=== PATIENT | female | born 1950 | race Caucasian/White ===

== ENCOUNTER → 2018-04-10 15:35 | Outpatient (CLI) | payer MEDICARE, OTHER, SELFPAY ==
--- NOTE | 2018-04-10 | DI.RAD.S_ITS ---
PROCEDURE: XR CHEST 2V INDICATIONS: 67 year-old female with cough. TECHNIQUE: 2 views of the chest were acquired. COMPARISON: [facility], , CHEST 1 VIEW, 09/22/2015, 8:42. [facility], CR, CHEST 2 VIEW, 02/20/2008, 8:08. [facility], RG, XR CXR 2V, 01/18/2006, 10:11. FINDINGS: Surgical changes and devices: None. Lungs and pleura: No pleural effusions or pneumothorax. Lungs are clear. Lung volumes are prominent. Mediastinum: Mediastinal contours are normal. Heart size is normal. There is aortic atherosclerosis. Bones and chest wall: No suspicious bony abnormalities. Soft tissues appear unremarkable. IMPRESSION: No acute cardiopulmonary disease. Prominent lung volumes raise the question of chronic obstructive pulmonary disease. Dictated by: Myron Lai M.D. on 04/10/2018 at 16:00 Approved by: Myron Lai M.D. on 04/10/2018 at 16:00
== END ==
PROVIDERS: PCP Family Medicine; Visit Provider Internal Medicine Cardiovascular Disease
DX: R05 Cough (principal)
CPT/HCPCS: 71046

== ENCOUNTER → 2018-04-24 15:55 | Outpatient (CLI) | payer MEDICARE, OTHER, SELFPAY ==
[2018-04-24 16:43] LABS: Hematocrit 42.1 % (36-46); Hemoglobin 14.2 g/dL (12.0-16.0)
== END ==
PROVIDERS: Family Provider Family Medicine; PCP Family Medicine; Visit Provider Family Medicine
DX: Z01.812 Encounter for preprocedural laboratory examination (principal)
CPT/HCPCS: 36415; 85014; 85018

== ENCOUNTER → 2018-04-30 15:55 | Outpatient (CLI) | payer MEDICARE, OTHER, SELFPAY ==
--- NOTE | 2018-05-02 16:24 | PM.PFT.1 ---
Pulmonary Function Test Referral & Results Date Patient Seen: 04/30/18 Requesting provider: Zoraida Holt Results: The spirometry demonstrates an FVC of 3.26 L which is 85% of predicted. The FEV1 was measured at 2.42 L which is 83% of predicted. The FEV1/FVC ratio was 70 for which is 96% of predicted. Following the administration of bronchodilator there was no appreciable change. Lung volumes show an SVC of 3.18 L which is 91% of predicted. The diffusing capacity was measured at 23.97 which is 75% of predicted. No hemoglobin value was provided, so no correction for potential anemia could be made, if appropriate. The maximum voluntary ventilation was reduced. Interpretation: This study demonstrates mild obstructive lung disease without evidence of benefit following the administration of bronchodilator. There is also a slight reduction in diffusing capacity suggesting some element of disease at the capillary alveolar level. Clinical correlation suggested
== END ==
PROVIDERS: Family Provider Family Medicine; PCP Family Medicine; Visit Provider Family Medicine
DX: J44.9 Chronic obstructive pulmonary disease, unspecified (principal)
CPT/HCPCS: 94010; 94060; 94726; 94729

== ENCOUNTER → 2018-07-15 14:29 | Outpatient (CLI) | payer MEDICARE, OTHER, SELFPAY ==
--- NOTE | 2018-07-15 | DI.MG.S_ITS ---
BILATERAL DIGITAL SCREENING MAMMOGRAM 3D/2D WITH CAD: 07/15/2018 CLINICAL: Routine screening. Comparison is made to exams dated: 12/04/2016 mammogram, 07/21/2015 mammogram, and 03/07/2013 mammogram - [facility]. The tissue of both breasts is heterogeneously dense. This may lower the sensitivity of mammography. Current study was also evaluated with a Computer Aided Detection (CAD) system. There are mole markers on both breasts. No significant masses, calcifications, or other findings are seen in either breast. There has been no significant interval change. IMPRESSION: NEGATIVE There is no mammographic evidence of malignancy. A 1 year screening mammogram is recommended. This exam was interpreted at Station ID: [id number]. NOTE: For mammograms, a report in lay terms will be sent to the patient. Approximately 15% of breast malignancies will not be visualized mammographically. In the management of a palpable breast mass, a negative mammogram must not discourage biopsy of a clinically suspicious lesion. Electronically Signed By: Kalen yang/lester:07/17/2018 02:45:49 letter sent: Normal Exam ACR BI-RADS Category 1: Negative 3341F
== END ==
PROVIDERS: Family Provider Family Medicine; PCP Family Medicine; Visit Provider Family Medicine
DX: Z12.31 Encounter for screening mammogram for malignant neoplasm of breast (principal)
CPT/HCPCS: 77063; 77067

== ENCOUNTER → 2018-08-15 08:32 | Outpatient (CLI) | payer MEDICARE, OTHER, SELFPAY ==
[2018-08-15 09:07] LABS: Add Manual Diff / Slide Review NO; Basophils Percent Auto 1.2 % (0-2); Eosinophils Percent Auto 8.7 % (2-4); Hematocrit 41.4 % (36-46); Hemoglobin 13.9 g/dL (12.0-16.0); Lymphocytes Percent Auto 32.1 % (25-40); Mean Corpuscular HGB Conc 33.7 % (30-36); Mean Corpuscular Hemoglobin 30.4 PG (26-34); Mean Corpuscular Volume 90.4 fL (80-100); Monocytes Percent Auto 9.9 % (3-14); Neutrophils Absolute Auto 2600 /uL (3000-5900); Neutrophils Percent Auto 48.1 % (50-75); Platelet Count 204 X10^3/uL (150-400); Red Blood Cell Count 4.58 X10^6/uL (4.0-5.2); Red Cell Distribution Width 13.1 % (11.6-14.8); White Blood Cell Count 5.5 X10^3/uL (4.5-11.0)
[2018-08-15 09:23] LABS: Alanine Aminotransferase 40 IU/L (9-52); Albumin 4.2 g/dL (3.5-5.0); Albumin Globulin Ratio 1.3 (1.0-2.8); Alkaline Phosphatase 50 U/L (38-126); Aspartate Aminotransferase 29 IU/L (14-36); BUN Creatinine Ratio 21.4 (6-22); Bilirubin Total 0.6 mg/dL (0.2-1.3); Blood Urea Nitrogen 15 mg/dL (7-17); Calcium 9.2 mg/dL (8.4-10.2); Carbon Dioxide 32 mmol/L (22-32); Chloride 104 mmol/L (98-107); Cholesterol 208 mg/dL (140-199); Estimated Glomerular Filt Rate > 60.0 mL/min (>60); Globulin 3.2 g/dL (1.7-4.1); Glucose 91 mg/dL (80-110); HDL Cholesterol 60 mg/dL (40-60); HEMOLYSIS < 15 (0-50); LDL Cholesterol Calculated 136 mg/dL (<100); Potassium 3.9 mmol/L (3.4-5.1); Sodium 144 mmol/L (137-145); Total Protein 7.4 g/dL (6.3-8.2); Triglycerides 59 mg/dL (35-150)
[2018-08-15 10:40] LABS: TSH w/ Reflex to FT4 2.16 uIU/mL (0.47-4.68)
== END ==
PROVIDERS: PCP Family Medicine; Visit Provider Family Medicine
DX: E78.5 Hyperlipidemia, unspecified (principal); I49.9 Cardiac arrhythmia, unspecified
CPT/HCPCS: 36415; 80053; 80061; 84443; 85025

== ENCOUNTER → 2018-09-20 08:59 | Outpatient (CLI) | payer MEDICARE, OTHER, SELFPAY | PROVIDERS: PCP Family Medicine; Visit Provider Family Medicine | DX: K21.9 Gastro-esophageal reflux disease without esophagitis (principal); R05 Cough | CPT/HCPCS: 83013 ==

== ENCOUNTER → 2019-06-09 09:11 | Outpatient (CLI) | payer MEDICARE, OTHER, SELFPAY ==
[2019-06-09 10:36] LABS: Alanine Aminotransferase 30 IU/L (9-52); Albumin 3.9 g/dL (3.5-5.0); Albumin Globulin Ratio 1.3 (1.0-2.8); Alkaline Phosphatase 48 U/L (38-126); Aspartate Aminotransferase 27 IU/L (14-36); BUN Creatinine Ratio 26.7 (6-22); Bilirubin Total 0.7 mg/dL (0.2-1.3); Blood Urea Nitrogen 16 mg/dL (7-17); Calcium 9.3 mg/dL (8.4-10.2); Carbon Dioxide 28 mmol/L (22-32); Chloride 105 mmol/L (98-107); Cholesterol 188 mg/dL (140-199); Estimated Glomerular Filt Rate > 60.0 mL/min (>60); Glucose 89 mg/dL (80-110); HDL Cholesterol 74 mg/dL (40-60); HEMOLYSIS < 15 (0-50); LDL Cholesterol Calculated 104 mg/dL (<100); Potassium 4.2 mmol/L (3.4-5.1); Sodium 141 mmol/L (137-145); Total Protein 6.9 g/dL (6.3-8.2); Triglycerides 48 mg/dL (35-150)
== END ==
PROVIDERS: PCP Family Medicine; Visit Provider Family Medicine
DX: E78.5 Hyperlipidemia, unspecified (principal)
CPT/HCPCS: 36415; 80053; 80061

== ENCOUNTER → 2019-06-18 15:07 | Outpatient (CLI) | payer MEDICARE, OTHER, SELFPAY ==
[2019-06-18 15:28] LABS: Add Manual Diff / Slide Review NO; Basophils Absolute Auto 100 /uL (0-100); Basophils Percent Auto 1.1 % (0-2); Eosinophils Absolute Auto 400 /uL (0-450); Eosinophils Percent Auto 6.2 % (2-4); Hematocrit 40.5 % (36-46); Hemoglobin 13.9 g/dL (12.0-16.0); Lymphocytes Absolute Auto 2300 /uL (1100-4500); Lymphocytes Percent Auto 37.9 % (25-40); Mean Corpuscular HGB Conc 34.3 % (30-36); Mean Corpuscular Hemoglobin 31.1 PG (26-34); Mean Corpuscular Volume 90.7 fL (80-100); Monocytes Absolute Auto 600 /uL (0-900); Monocytes Percent Auto 9.6 % (3-14); Neutrophils Absolute Auto 2700 /uL (1500-7000); Neutrophils Percent Auto 45.2 % (50-75); Platelet Count 198 X10^3/uL (150-400); Red Blood Cell Count 4.46 X10^6/uL (4.0-5.2); Red Cell Distribution Width 13.4 % (11.6-14.8)
[2019-06-18 15:51] LABS: Erythrocyte Sedimentation Rate 6 MM/HR (0-20)
[2019-06-18 16:48] LABS: C-Reactive Protein Quant < 0.5 mg/dL (<1.0)
[2019-06-18 16:52] LABS: TSH w/ Reflex to FT4 1.33 uIU/mL (0.47-4.68)
[2019-06-18 17:11] LABS: Vitamin B12 333 pg/mL (239-931)
== END ==
PROVIDERS: PCP Family Medicine; Visit Provider Family Medicine
DX: G62.9 Polyneuropathy, unspecified (principal); R53.83 Other fatigue
CPT/HCPCS: 36415; 82607; 84443; 85025; 85651; 86140

== ENCOUNTER → 2019-07-24 12:40 | Outpatient (CLI) | payer MEDICARE, OTHER, SELFPAY | PROVIDERS: PCP Family Medicine; Visit Provider Family Medicine | DX: R20.2 Paresthesia of skin (principal); M85.851 Other specified disorders of bone density and structure, right thigh; Z78.0 Asymptomatic menopausal state; Z90.722 Acquired absence of ovaries, bilateral; Z82.62 Family history of osteoporosis | CPT/HCPCS: 77080; 95885; 95886; 95910 ==

== ENCOUNTER → 2019-07-24 13:47 | Outpatient (CLI) | payer MEDICARE, OTHER, SELFPAY | PROVIDERS: PCP Family Medicine; Visit Provider Family Medicine | DX: R20.2 Paresthesia of skin (principal) | CPT/HCPCS: 95885; 95886; 95910 ==

== ENCOUNTER → 2019-08-21 08:41 | Outpatient (CLI) | payer MEDICARE, OTHER, SELFPAY ==
[2019-08-21 10:46] LABS: Vitamin B12 743 pg/mL (239-931)
[2019-08-21 10:48] LABS: Hep C Virus Ab w/Reflex Quant NEGATIVE s/c (NEGATIVE)
[2019-08-25 03:09] LABS: Methylmalonic Acid 126 nmol/L (87-318)
[2019-08-26 16:19] LABS: Homocysteine 6.3 umol/L (< 10.4)
== END ==
PROVIDERS: PCP Family Medicine; Visit Provider Family Medicine
DX: G62.9 Polyneuropathy, unspecified (principal); Z11.59 Encounter for screening for other viral diseases
CPT/HCPCS: 36415; 82607; 83090; 83921; 86803

== ENCOUNTER → 2019-08-25 16:30 | Outpatient (CLI) | payer MEDICARE, OTHER, SELFPAY ==
[2019-08-25 18:08] LABS: Rheumatoid Factor < 8.6 IU/mL (<12.0)
[2019-08-28 11:40] LABS: CCP Antibody (IgG) < 16 Units (< 20)
[2019-08-28 16:16] LABS: ANA Screen, IFA NEGATIVE (NEGATIVE)
[2019-08-28 22:50] LABS: Albumin 4.2 g/dL (3.8-4.8); Alpha 1 Globulin 0.3 g/dL (0.2-0.3); Alpha 2 Globulin 0.7 g/dL (0.5-0.9); Beta 1 Globulin 0.4 g/dL (0.4-0.6); Gamma Globulin 1.4 g/dL (0.8-1.7); Protein, Total 7.4 g/dL (6.1-8.1)
[2019-08-30 14:01] LABS: Albumin 100 %; Protein/ Creatinine Ratio 50 mg/g creat (21-161); Total Urine Protein 5 mg/dL (5-24); Urine Creatinine, Random 101 mg/dL (20-275)
[2019-08-31 07:18] LABS: Arsenic 3 mcg/L (< 23); Lead, Blood < 1 mcg/dL (< 5)
[2019-09-01 10:54] LABS: Mercury, Blood 3
== END ==
PROVIDERS: PCP Family Medicine; Visit Provider Family Medicine
DX: G62.9 Polyneuropathy, unspecified (principal)
CPT/HCPCS: 36415; 83825; 84155; 84156; 84165; 84166; 86038; 86200; 86430

== ENCOUNTER → 2019-10-24 14:07 | Outpatient (CLI) | payer MEDICARE, OTHER, SELFPAY | PROVIDERS: PCP Family Medicine; Visit Provider Nurse Practitioner | DX: J02.9 Acute pharyngitis, unspecified (principal) | CPT/HCPCS: 87070 ==

== ENCOUNTER → 2019-10-28 14:55 | Outpatient (CLI) | payer MEDICARE, OTHER, SELFPAY ==
--- NOTE | 2019-10-28 14:57 | DI.ECHO.S_ITS ---
[facility]+ [facility] +---------+ : : [address] : : : : [id number] : : : : Phone: [phone]+ Echocardiogram Report + + :Name: CARL SAMUELS Study Date: 10/28/2019 Height: 69 in : :[facility] Weight: 139 lb : : Gender: Female BSA: 1.8 m2 : :: 1950 Age: 69 yrs BP: 142/80 mmHg: :Reason For Study: AFIB : :Ordering Physician: Lion : :Lenny Performed By: Carson Gomez : :Referring: LION SAENZ : + + Interpretation Summary Normal left ventricle size with ejection fraction 55-60%. Both atria are normal in size. Mild mitral regurgitation. Mild tricuspid regurgitation. The right ventricular systolic pressure is estimated to be at least 32 mmHg based on an estimated right atrial pressure of 8 mm Hg. Procedure: A two-dimensional transthoracic echocardiogram with color flow and Doppler was performed. The study quality was technically adequate. The patient was in normal sinus rhythm during the exam. Left Ventricle: The left ventricle is normal in size. There is normal left ventricular wall thickness. The ejection fraction is estimated to be 55-60%. There are no focal wall motion abnormalities. Diastolic parameters suggest probable normal left ventricular diastolic function and normal filling pressures. Right Ventricle: The right ventricle is normal in size and function. Atria: Both atria are normal in size. The interatrial septum is intact with no evidence for an atrial septal defect. Mitral Valve: The mitral valve is normal in structure and function. There is mild mitral regurgitation. Aortic Valve: The aortic valve is trileaflet. The aortic valve opens well. No aortic regurgitation is present. Tricuspid Valve: The tricuspid valve is normal in structure and function. There is mild tricuspid regurgitation. The right ventricular systolic pressure is estimated to be at least 32 mmHg based on an estimated right atrial pressure of 8 mm Hg. Pulmonic Valve: The pulmonic valve is not well visualized. There is trace pulmonic regurgitation. Great Vessels: The aortic root is normal size. The dimensions of the ascending aorta are normal. The pulmonary artery is normal size. The IVC is dilated (diameter is greater than 2.1 cm) yet it collapses greater than 50% with a sniff. This suggests a right atrial pressure of 8 mm Hg. Pericardium/ Pleura There is no pericardial effusion. There is no pleural effusion. MMode/2D Measurements & Calculations LVIDd: 4.2 cm LVOT diam: 1.8 cm LVIDs: 2.9 cm Ao root diam: 2.9 cm FS: 31.0 % EPSS: 0.64 cm IVSd: 0.93 cm LVPWd: 0.67 cm LV marquez. diameter/BSA (cm/m^2): 2.4 LV sys. diameter/BSA (cm/m^2): 1.7 LA A2 area: 16.6 cm2 RA long axis: 4.0 cm LA A4 area: 11.7 cm2 RA area: 9.3 cm2 LA length (vol): 3.5 cm RA vol: 18.1 ml LA vol: 47.2 ml RA : 10.2 ml/m2 LA vol index: 26.6 ml/m2 TAPSE: 2.1 cm Doppler Measurements & Calculations Ao V2 max: 124.2 cm/sec LVOT Max Gerard: 91.7 cm/sec Ao V2 mean: 85.9 cm/sec LV V1 max P.4 mmHg Ao max P.2 mmHg LV V1 VTI: 22.5 cm Ao mean P.4 mmHg TALI(I,D): 1.8 cm2 Ao V2 VTI: 31.0 cm TALI(V,D): 1.8 cm2 sev ratio: 0.73 TALI indexed to BSA (cm^2/m^2): 0.99 MV E max gerard: 101.4 cm/sec TR max gerard: 234.8 cm/sec MV A max gerard: 100.5 cm/sec TR max P.3 mmHg MV E/A: 1.0 Med Peak E' Gerard: 9.7 cm/sec E/E' med: 10.5 Lat Peak E' Gerard: 8.5 cm/sec E/E' lat: 11.9 E/e' average: 11.2 MV dec time: 0.23 sec SV(LVOT): 54.4 ml Electronically signed by: Nigel Vasquez on Reading Physician:10/28/2019 04:00 PM
== END ==
PROVIDERS: Family Provider Internal Medicine Cardiovascular Disease; PCP Family Medicine; Visit Provider Family Medicine
DX: I08.1 Rheumatic disorders of both mitral and tricuspid valves (principal); I48.91 Unspecified atrial fibrillation
CPT/HCPCS: 93306

== ENCOUNTER → 2020-03-10 11:49 | Outpatient (CLI) | payer MEDICARE, OTHER, SELFPAY ==
[2020-03-10 13:20] LABS: Add Manual Diff / Slide Review NO; Basophils Absolute Auto 0 /uL (0-100); Basophils Percent Auto 0.7 % (0-2); Eosinophils Absolute Auto 200 /uL (0-450); Eosinophils Percent Auto 3.3 % (2-4); Hematocrit 41.6 % (36-46); Hemoglobin 13.9 g/dL (12.0-16.0); Lymphocytes Absolute Auto 1700 /uL (1100-4500); Lymphocytes Percent Auto 27.8 % (25-40); Mean Corpuscular HGB Conc 33.4 % (30-36); Mean Corpuscular Hemoglobin 30.9 PG (26-34); Mean Corpuscular Volume 92.4 fL (80-100); Monocytes Absolute Auto 600 /uL (0-900); Monocytes Percent Auto 9.6 % (3-14); Neutrophils Absolute Auto 3600 /uL (1500-7000); Neutrophils Percent Auto 58.6 % (50-75); Platelet Count 216 X10^3/uL (150-400); Red Cell Distribution Width 13.2 % (11.6-14.8); White Blood Cell Count 6.1 X10^3/uL (4.5-11.0)
[2020-03-10 13:34] LABS: Alanine Aminotransferase 23 IU/L (<35); Albumin 4.3 g/dL (3.5-5.0); Albumin Globulin Ratio 1.3 (1.0-2.8); Alkaline Phosphatase 46 U/L (38-126); Aspartate Aminotransferase 29 IU/L (14-36); BUN Creatinine Ratio 22.7 (6-22); Bilirubin Total 0.4 mg/dL (0.2-1.3); Blood Urea Nitrogen 15 mg/dL (7-17); Calcium 9.5 mg/dL (8.4-10.2); Carbon Dioxide 30 mmol/L (22-32); Chloride 104 mmol/L (98-107); Estimated Glomerular Filt Rate > 60.0 mL/min (>60); Globulin 3.4 g/dL (1.7-4.1); Glucose 109 mg/dL (80-110); HEMOLYSIS < 15 (0-50); Potassium 4.1 mmol/L (3.4-5.1); Sodium 139 mmol/L (137-145); Total Protein 7.7 g/dL (6.3-8.2)
[2020-03-10 14:24] LABS: Vitamin B12 674 pg/mL (239-931)
[2020-03-10 16:28] LABS: Vitamin D 25 Hydroxy (D3) 37.2 ng/mL (30.0-100.0)
== END ==
PROVIDERS: Family Provider Internal Medicine Cardiovascular Disease; PCP Family Medicine; Referring Provider Family Medicine; Visit Provider Family Medicine
DX: G62.9 Polyneuropathy, unspecified (principal); I48.0 Paroxysmal atrial fibrillation; Z79.01 Long term (current) use of anticoagulants; E53.8 Deficiency of other specified B group vitamins; G60.3 Idiopathic progressive neuropathy; M81.0 Age-related osteoporosis without current pathological fracture
CPT/HCPCS: 36415; 80053; 82306; 82607; 85025

== ENCOUNTER → 2020-07-31 13:50 | Outpatient (CLI) | payer MEDICARE, OTHER, SELFPAY ==
--- NOTE | 2020-07-31 | DI.MG.S_ITS ---
BILATERAL DIGITAL SCREENING MAMMOGRAM 3D/2D WITH CAD: 07/31/2020 CLINICAL: Routine screening. Comparison is made to exams dated: 07/15/2018 mammogram, 12/04/2016 mammogram, and 07/21/2015 mammogram - [facility]. The tissue of both breasts is heterogeneously dense. This may lower the sensitivity of mammography. Current study was also evaluated with a Computer Aided Detection (CAD) system. There are benign calcifications in both breasts. There are mole markers on both breasts. No significant masses, calcifications, or other findings are seen in either breast. There has been no significant interval change. IMPRESSION: BENIGN There is no mammographic evidence of malignancy. A 1 year screening mammogram is recommended. This exam was interpreted at Station ID: [id number]. NOTE: For mammograms, a report in lay terms will be sent to the patient. Approximately 15% of breast malignancies will not be visualized mammographically. In the management of a palpable breast mass, a negative mammogram must not discourage biopsy of a clinically suspicious lesion. Electronically Signed By: Ravi sun/lester:08/02/2020 09:32:32 letter sent: Normal Exam ACR BI-RADS Category 2: Benign Finding(s) 3342F
== END ==
PROVIDERS: Family Provider Internal Medicine Cardiovascular Disease; PCP Family Medicine; Referring Provider Family Medicine; Visit Provider Family Medicine
DX: Z12.31 Encounter for screening mammogram for malignant neoplasm of breast (principal)
CPT/HCPCS: 77063; 77067

== ENCOUNTER → 2021-02-04 14:47 | Outpatient (CLI) | payer MEDICARE, OTHER, SELFPAY ==
--- NOTE | 2021-02-04 14:49 | DI.US.S_ITS ---
PROCEDURE: US CAROTID DOPPLER BI INDICATIONS: PULSATILE TINITIS LEFT EAR AND RIGHT BRUIT TECHNIQUE: Color and pulse Doppler interrogation was performed of both carotid systems, with image documentation and velocity measurements. COMPARISON: None. FINDINGS: Stenosis calculations are based on SRU (Society of Radiologists in Ultrasound) criteria. Right side: Brachial blood pressure: 106/64 mm Hg. Common carotid artery peak systolic velocity: 133 cm/sec. Internal carotid artery peak systolic velocity: 114 cm/sec. Internal carotid artery end diastolic velocity: 25 cm/sec. External carotid artery peak systolic velocity: 190 cm/sec. ICA/CCA peak systolic ratio: 0.9. Coleman scale imaging description: Echogenic plaque Percent internal carotid artery stenosis: Less than 50%. Vertebral artery: Flow direction is antegrade. Left side: Brachial blood pressure: 108/56 mm Hg. Common carotid artery peak systolic velocity: 133 cm/sec. Internal carotid artery peak systolic velocity: 122 cm/sec. Internal carotid artery end diastolic velocity: 24 cm/sec. External carotid artery peak systolic velocity: 113 cm/sec. ICA/CCA peak systolic ratio: 0.9. Coleman scale imaging description: Echogenic plaque Percent internal carotid artery stenosis: Less than 50%. Vertebral artery: Flow direction is antegrade. IMPRESSION: Less than 50% stenosis of the right and left internal carotid arteries. Dictated by: Susana Segovia MD, PhD on 02/04/2021 at 17:16 Approved by: Susana Segovia MD, PhD on 02/04/2021 at 17:18
== END ==
PROVIDERS: Family Provider Internal Medicine Cardiovascular Disease; PCP Family Medicine; Referring Provider Family Medicine; Visit Provider Family Medicine
DX: H93.A2 Pulsatile tinnitus, left ear (principal)
CPT/HCPCS: 93880

== ENCOUNTER → 2021-04-07 10:22 | Outpatient (CLI) | payer MEDICARE, OTHER, SELFPAY ==
[2021-04-07 11:13] LABS: Add Manual Diff / Slide Review NO; Basophils Absolute Auto 100 /uL (0-100); Basophils Percent Auto 1.1 % (0-2); Eosinophils Absolute Auto 200 /uL (0-450); Hematocrit 41.8 % (36-46); Lymphocytes Absolute Auto 1700 /uL (1100-4500); Lymphocytes Percent Auto 32.1 % (25-40); Mean Corpuscular HGB Conc 33.5 % (30-36); Mean Corpuscular Hemoglobin 30.8 PG (26-34); Mean Corpuscular Volume 91.8 fL (80-100); Monocytes Absolute Auto 500 /uL (0-900); Monocytes Percent Auto 10.2 % (3-14); Neutrophils Absolute Auto 2800 /uL (1500-7000); Neutrophils Percent Auto 53.6 % (50-75); Platelet Count 202 X10^3/uL (150-400); Red Blood Cell Count 4.55 X10^6/uL (4.0-5.2); Red Cell Distribution Width 12.8 % (11.6-14.8); White Blood Cell Count 5.1 X10^3/uL (4.5-11.0)
[2021-04-07 11:42] LABS: Alanine Aminotransferase 28 IU/L (<35); Albumin 4.1 g/dL (3.5-5.0); Albumin Globulin Ratio 1.2 (1.0-2.8); Alkaline Phosphatase 49 U/L (38-126); Aspartate Aminotransferase 31 IU/L (14-36); BUN Creatinine Ratio 22.5 (6-22); Bilirubin Total 0.7 mg/dL (0.2-1.3); Blood Urea Nitrogen 16 mg/dL (7-17); Calcium 9.5 mg/dL (8.4-10.2); Carbon Dioxide 29 mmol/L (22-32); Chloride 103 mmol/L (98-107); Cholesterol 198 mg/dL (140-199); Estimated Glomerular Filt Rate > 60.0 mL/min (>60); Globulin 3.3 g/dL (1.7-4.1); Glucose 98 mg/dL (80-110); HDL Cholesterol 63 mg/dL (40-60); HEMOLYSIS < 15 (0-50); LDL Cholesterol Calculated 125 mg/dL (<100); Sodium 137 mmol/L (137-145); Total Protein 7.4 g/dL (6.3-8.2); Triglycerides 50 mg/dL (35-150)
[2021-04-07 12:01] LABS: Vitamin D 25 Hydroxy (D3) 48.3 ng/mL (30.0-100.0)
[2021-04-07 12:31] LABS: Vitamin B12 Reflex MMA if <400 641 pg/mL (239-931)
== END ==
PROVIDERS: Family Provider Internal Medicine Cardiovascular Disease; PCP Family Medicine; Referring Provider Family Medicine; Visit Provider Family Medicine
DX: E53.8 Deficiency of other specified B group vitamins (principal); E78.5 Hyperlipidemia, unspecified; M85.80 Other specified disorders of bone density and structure, unspecified site; Z51.81 Encounter for therapeutic drug level monitoring; Z79.01 Long term (current) use of anticoagulants; G60.3 Idiopathic progressive neuropathy
CPT/HCPCS: 36415; 80053; 80061; 82306; 82607; 85025

== ENCOUNTER → 2021-07-25 09:41 | Outpatient (CLI) | payer MEDICARE, OTHER, SELFPAY ==
[2021-07-25 10:34] LABS: Add Manual Diff / Slide Review NO; Basophils Absolute Auto 0 /uL (0-100); Basophils Percent Auto 0.8 % (0-2); Eosinophils Absolute Auto 100 /uL (0-450); Eosinophils Percent Auto 2.4 % (2-4); Hematocrit 43.7 % (36-46); Hemoglobin 14.5 g/dL (12.0-16.0); Lymphocytes Absolute Auto 1300 /uL (1100-4500); Lymphocytes Percent Auto 23.9 % (25-40); Mean Corpuscular HGB Conc 33.2 % (30-36); Mean Corpuscular Hemoglobin 30.9 PG (26-34); Mean Corpuscular Volume 93.3 fL (80-100); Monocytes Absolute Auto 600 /uL (0-900); Monocytes Percent Auto 10.3 % (3-14); Neutrophils Absolute Auto 3400 /uL (1500-7000); Neutrophils Percent Auto 62.6 % (50-75); Platelet Count 212 X10^3/uL (150-400); Red Blood Cell Count 4.68 X10^6/uL (4.0-5.2); Red Cell Distribution Width 13.2 % (11.6-14.8); White Blood Cell Count 5.4 X10^3/uL (4.5-11.0)
[2021-07-25 10:49] LABS: Alanine Aminotransferase 36 IU/L (<35); Albumin 4.3 g/dL (3.5-5.0); Albumin Globulin Ratio 1.3 (1.0-2.8); Alkaline Phosphatase 54 U/L (38-126); Aspartate Aminotransferase 34 IU/L (14-36); BUN Creatinine Ratio 25.4 (6-22); Bilirubin Total 0.6 mg/dL (0.2-1.3); Blood Urea Nitrogen 16 mg/dL (7-17); Calcium 9.2 mg/dL (8.4-10.2); Carbon Dioxide 32 mmol/L (22-32); Chloride 103 mmol/L (98-107); Cholesterol 183 mg/dL (140-199); Estimated Glomerular Filt Rate > 60.0 mL/min (>60); Globulin 3.2 g/dL (1.7-4.1); Glucose 98 mg/dL (80-110); HDL Cholesterol 67 mg/dL (40-60); HEMOLYSIS < 15 (0-50); LDL Cholesterol Calculated 105 mg/dL (<100); Potassium 4.1 mmol/L (3.4-5.1); Sodium 138 mmol/L (137-145); Total Protein 7.5 g/dL (6.3-8.2); Triglycerides 57 mg/dL (35-150)
[2021-07-25 11:03] LABS: Vitamin D 25 Hydroxy (D3) 47.3 ng/mL (30.0-100.0)
[2021-07-25 11:38] LABS: Vitamin B12 703 pg/mL (239-931)
[2021-07-25 13:24] LABS: TSH w/ Reflex to FT4 1.38 uIU/mL (0.47-4.68)
== END ==
PROVIDERS: Family Provider Internal Medicine Cardiovascular Disease; PCP Family Medicine; Referring Provider Family Medicine; Visit Provider Family Medicine
DX: M85.851 Other specified disorders of bone density and structure, right thigh (principal); Z78.0 Asymptomatic menopausal state; E53.8 Deficiency of other specified B group vitamins; E78.5 Hyperlipidemia, unspecified; G62.9 Polyneuropathy, unspecified; Z79.01 Long term (current) use of anticoagulants; Z90.722 Acquired absence of ovaries, bilateral; Z82.62 Family history of osteoporosis
CPT/HCPCS: 36415; 77080; 80053; 80061; 82306; 82607; 84443; 85025

== ENCOUNTER → 2021-11-02 10:44 | Outpatient (CLI) | payer MEDICARE, OTHER, SELFPAY ==
[2021-11-02 13:02] LABS: Alanine Aminotransferase 29 IU/L (<35); Albumin 4.1 g/dL (3.5-5.0); Albumin Globulin Ratio 1.4 (1.0-2.8); Alkaline Phosphatase 52 U/L (38-126); Aspartate Aminotransferase 28 IU/L (14-36); BUN Creatinine Ratio 24.7 (6-22); Bilirubin Total 0.5 mg/dL (0.2-1.3); Blood Urea Nitrogen 18 mg/dL (7-17); Calcium 9.3 mg/dL (8.4-10.2); Carbon Dioxide 33 mmol/L (22-32); Chloride 102 mmol/L (98-107); Estimated Glomerular Filt Rate > 60.0 mL/min (>60); Glucose 78 mg/dL (80-110); HEMOLYSIS < 15 (0-50); Potassium 3.8 mmol/L (3.4-5.1); Sodium 140 mmol/L (137-145); Total Protein 7.1 g/dL (6.3-8.2)
== END ==
PROVIDERS: Family Provider Internal Medicine Cardiovascular Disease; PCP Family Medicine; Referring Provider Family Medicine; Visit Provider Family Medicine
DX: R79.89 Other specified abnormal findings of blood chemistry (principal)
CPT/HCPCS: 36415; 80053

== ENCOUNTER 2021-12-01 11:15 | Outpatient (RCR) | payer MEDICARE, OTHER, SELFPAY ==
--- NOTE | 2021-09-28 12:00 | PT.OIE ---
Current Diagnoses Hereditary and idiopathic neuropathy, unspecified (09/28/21) Past Medical History (Last Updated 09/02/21 @ 14:15 by Dunia Galvez DO) Abnormal Pap smear of cervix (~1979) Atypical chest pain Cardiac arrhythmia (1992) Chronic rhinitis Colon polyps (2008) Congenital ankyloglossia COPD (chronic obstructive pulmonary disease) Dyspareunia Endometriosis (~1979) Fibroids (~1979) Hemorrhoids Internal hemorrhoids Measles (1959) Mumps (1959) Objective pulsatile tinnitus of left ear Osteopenia (2010) Ovarian cyst (~1979) Peripheral neuropathy Rubella (1959) Skin cancer (2006) Tinnitus of left ear Underweight Vitamin B12 deficiency Past Surgical History (Last Reviewed 10/24/19 @ 14:18 by DEBORAH Sanches) Anesthesia History of third molar tooth extraction S/P total abdominal hysterectomy and bilateral salpingo-oophorectomy (09/2000) Status post tonsillectomy and adenoidectomy (1955) Visit Care Team Role Provider Type Dunia Galvez DO Primary Care Provider Physician Specialty: Family Practice Address: [address] [place] [address], [address], [address] Email: [email or web address] Howard Alfred MD Family Provider Non-Staff Specialty: Cardiology Address: [address] [place] [address], [id number] Email: Ronel Verdin MD Attending Provider Non-Staff Referring Provider Specialty: Neurology Address: [address] [place] [address], [id number] Email: Physical Therapy Initial Evaluation PT-OP-A Visit Information Start: 09/29/21 11:26 Freq: Status: Active Protocol: Document 09/28/21 11:27 (Rec: 09/29/21 11:58 [email or web address]) Out-Patient Physical Therapy Visit Information Visit Information Visit Type Initial Evaluation Visit Start Time 14:30 Visit Stop Time 15:15 Total Visit Minutes 45 Visit Number 11/16 Number of ASIC VERIFICATION ENGINEER Visits 0 Evaluation Information Evaluation Date 09/29/21 Precautions Precautions osteopenia A-fib peripheral polyneauopathy. PT-OP-B Current Condition Start: 09/29/21 11:26 Freq: Status: Active Protocol: Document 09/28/21 11:27 HH (Rec: 09/29/21 11:58 HH [email or web address]) Current Condition History of Current Condition Onset Date couple months ago Current Complaints bilateral tingling/numbness to lower leg R>L History of Current Condition Ellen is a 71yo here for her worsening peripheral polyneuropathy. Per EMr, there were present since 2017 which included tingling and numbness of the back side of lower legs, to vega area and big toe region. She stated her symptoms have progresed and feeling numbness and tightness over the top of feet and ankles, along with some shooting pain in the feet occasionally. She noticed the impairment sensation affects her balance slightly and wearing shoes with good arch support helps. Denies any loss of motor control and weakness . Prior Treatments and Tests EMG 07/24/2019 suggested sensory motor polyneuropathic process that is distal and symmetrical on LEs. not suggestive of L2 to S1 nerve lesion. slow conduction velocity on R peroneal nerve Dr. Verdin recommended massage techniques and exercises on her lower leg to promote blood flow Personal Factors Other Personal Factors That May Effect osteopenia Therapy/Recovery A-fib peripheral polyneauopathy. PT-OP-C Subjective Start: 09/29/21 11:26 Freq: Status: Active Protocol: Document 09/28/21 11:27 HH (Rec: 09/29/21 11:58 [email or web address]) OP-PT Pain Assessment Location lower leg Intensity 5 Scale Used Numeric (0 - 10) Description Shooting Frequency Occasional Variations/Patterns unknown Other Pain Aggravating Factors unknown PT-OP-D Balance Start: 09/29/21 11:26 Freq: Status: Active Protocol: Document 09/28/21 11:27 HH (Rec: 09/29/21 11:58 [email or web address]) Balance Tests Single Limb Standing Single Limb- Right 43 Single Limb- Left 45 PT-OP-F Manual Assessment Start: 09/29/21 11:26 Freq: Status: Active Protocol: Document 09/28/21 11:27 HH (Rec: 09/29/21 11:58 HH [email or web address]) Manual Assessments Soft Tissue Assessment Soft Tissue Mobility Assessment significant toncity at bilateral anterior tibialis, reports of radiating tingling/ numbness sensation to top of R foot ( reviving the nerve as pt stated Joint Mobility Assessment Joint Mobility Assessment WFL PT-OP-G Mobility & Gait Start: 09/29/21 11:26 Freq: Status: Active Protocol: Document 09/28/21 11:27 HH (Rec: 09/29/21 11:58 [email or web address]) OP Gait Assessment Comments Gait Comments dec heel strike and feet clearance. dec toe push off. PT-OP-H Neuro Start: 09/29/21 11:26 Freq: Status: Active Protocol: Document 09/28/21 11:27 HH (Rec: 09/29/21 11:58 [email or web address]) Sensation Evaluation Gross Sensation Gross Sensation Left LE Impaired,Right LE Impaired Sensation Description Numbness,Tingling Comments Summary Comments dec sensation to light touch R >L (from lateral vega to medial arch and big toe) Deep Tendon Reflex & Clonus Assessment Deep Tendon Reflex Bilateral Achilles Deep Tendon Reflex 2+ Normal Bilateral Patellar Deep Tendon Reflex 2+ Normal PT-OP-K Range of Motion Start: 09/29/21 11:26 Freq: Status: Active Protocol: Document 09/28/21 11:27 HH (Rec: 09/29/21 11:58 [email or web address]) Lumbar Spine Range of Motion Lumbar Spine Active Degrees Comments able to reach midshin, flat spine noted with flexion. No reproduction of symptoms on LEs with trunk related movements. Hip Goniometric Range of Motion Hip Right Active Hip ROM WFL Yes Straight Leg Raise 90 Left Active Hip ROM WFL Yes Straight Leg Raise 90 Knee Goniometric Range of Motion Knee Right Knee ROM WFL Yes Left Knee ROM WFL Yes Ankle and Foot Goniometric Range of Motion Ankle and Foot Right Active Testing Position Supine Dorsiflexion with Knee Flexed 8 Dorsiflexion with Knee Extended 0 Plantarflexion 46 Left Active Testing Position Supine Dorsiflexion with Knee Flexed 10 Dorsiflexion with Knee Extended 2 Plantarflexion 50 PT-OP-M Strength Start: 09/29/21 11:26 Freq: Status: Active Protocol: Document 09/28/21 11:27 HH (Rec: 09/29/21 11:58 [email or web address]) Hip Strength Hip Manual Muscle Testing Right Flexion (L2) 4 Good Extension (S1) 4 Good Abduction 4 Good Adduction 4 Good Left Flexion (L2) 4 Good Extension (S1) 4 Good Abduction 4 Good Adduction 4 Good Knee Strength Knee Manual Muscle Testing Right Flexion (S2) 4+ Good+ Extension (L3) 4+ Good+ Left Flexion (S2) 4+ Good+ Extension (L3) 4+ Good+ Ankle/Foot Strength Ankle and Foot Manual Muscle Testing Right Dorsiflexion (L4) 4+ Good+ Plantarflexion (S1) 4+ Good+ Inversion 4+ Good+ Eversion (S1) 4+ Good+ Left Dorsiflexion (L4) 4+ Good+ Plantarflexion (S1) 4+ Good+ Inversion 4+ Good+ Eversion (S1) 4+ Good+ Toe Strength Toe Manual Muscle Testing Right Great Toe Flexion 5 Normal Extension 5 Normal Left Great Toe Flexion 5 Normal Extension 5 Normal PT-OP-Q Treatments Start: 09/29/21 11:26 Freq: Status: Active Protocol: Document 09/28/21 11:27 (Rec: 09/29/21 11:58 [email or web address]) Therapeutic Exercises Standing Exercises ankle PF Side bilateral Reps/Minutes 20s x5 Comments for HEP calf stretch Side bilateral Reps/Minutes 20s x5 Comments for HEP Manual Therapy Treatment Soft Tissue Mobilization anterior tib Mobilization Type Myofascial Release Intensity/Depth Moderate Body Position Supine Comments significant tightness noted with radiating tingling/ numbness noted at top of the foot but subside after PT-OP-T Assessment and Plan Start: 09/29/21 11:26 Freq: Status: Active Protocol: Document 09/28/21 11:27 (Rec: 09/29/21 11:58 [email or web address]) Physical Therapy Assessment Rehab Potential Rehabilitation Potential Good Evaluation Complexity Number of Personal Factors/Comorbidities 1-2 Number of Body Systems Impaired 1-2 Clinical Presentation at Evaluation Stable Impairments Impairments Activity Tolerance,Balance, Functional Activities, Functional Mobility,Gait,Pain, Posture,ROM,Sensation,Soft Tissue Mobility Goals neuro sign Impairment consistent tingling/ numbness to lower legs Short Term Goal (STG) pt will report reduction in tingling/ numbness to lower legs by 50 % during the day. STG Duration 4weeks Plate Glass Polisher Goal (LTG) pt will report reduction in tingling/ numbness to lower legs by 80 % during the day. LTG Duration 10 weeks ROM Impairment limited ankle DF and PF Short Term Goal (STG) pt will show improved ankle DF /PF by 5 degrees to improve her gait quality STG Duration 4 weeks Plate Glass Polisher Goal (LTG) pt will show improved ankle DF /PF by 10 degrees to improve her gait quality (heel strike and push off) LTG Duration 8 weeks pain Impairment occasional radiating pain to lower leg Short Term Goal (STG) pt will c/o radiating pain to lower legs no more than 3x/wk STG Duration 4 weeks Plate Glass Polisher Goal (LTG) pt will c/o radiating pain to lower legs no more than 1x/wk to improve her quality of life LTG Duration 8 weeks Assessment Summary Assessment Ellen is a 71yo female here for her worsening idiopathic peripheral polyneuropathy started a few months ago ( symptoms begin in 2017). pt has no known back injury/ sciatica/ LBP upon assessment but was dx with sensory motor polyneuropathic process that is distal and symmetrical on LEs with slow conduction velocity on peroneal nerve R>l via EMG study. However, pt does show very limited ankle DF and tightness at anterior tibialis which possibly increases neural tension on peroneal nerve by overusing ankle DF during gait cycle. She reports relief after massaging that muscle group. This might indicate her symptoms could be mechanical. Although her PCP did recommend her to acquire AFO, i honestly believe that pt does not have the need yet since she has good motor control, strength and balance at this point. I believe pt can benefit from skilled therapy to address her limited ankle ROM in order to improve her gait quality by reducing mechanical pressure on ankle dorsiflexors. Physical Therapy Plan Frequency and Duration Frequency of Treatment 2x/Week Duration of Treatment 8 weeks Plan of Care Start Date 09/29/21 Plan of Care End Date 11/28/21 Therapeutic Interventions Therapeutic Interventions Balance Training,Gait Training ,Home Exercise Program,Joint Mobilizations,Manual Therapy, Neuromuscular Re-education, Orthotic/Prosthetic Management ,Patient/Caregiver Education, Self-Care/Home Management,Soft Tissue Mobilization,Taping, Therapeutic Activities, Therapeutic Exercises Modalities Cold Pack/Ice Massage,Electric Stimulation,Hot Packs, Infrared Therapy,Ultrasound Next Visit Focus/Plan Next Note Type Treatment Note Next Visit Plan review stretching masasge on ant tib gait training.
--- NOTE | 2021-09-28 12:00 | PT.OPPOC ---
Physical, Occupational & Speech Therapy At [facility] Current Diagnoses Hereditary and idiopathic neuropathy, unspecified (09/28/21) Visit Care Team Role Provider Type Dunia Galvez DO Primary Care Provider Physician Specialty: Family Practice Address: [address] [place] [address], [facility] [address], [place], [address] Email: [email or web address] Howard Alfred MD Family Provider Non-Staff Specialty: Cardiology Address: [address] [place] [address], [address] Email: Ronel Verdin MD Attending Provider Non-Staff Referring Provider Specialty: Neurology Address: [address] [place], [address] Email: Plan Of Care PT-OP-T Assessment and Plan Start: 09/29/21 11:26 Freq: Status: Active Protocol: Document 09/28/21 11:27 (Rec: 09/29/21 11:58 [email or web address]) Physical Therapy Assessment Rehab Potential Rehabilitation Potential Good Evaluation Complexity Number of Personal Factors/Comorbidities 1-2 Number of Body Systems Impaired 1-2 Clinical Presentation at Evaluation Stable Impairments Impairments Activity Tolerance,Balance, Functional Activities, Functional Mobility,Gait,Pain, Posture,ROM,Sensation,Soft Tissue Mobility Goals neuro sign Impairment consistent tingling/ numbness to lower legs Short Term Goal (STG) pt will report reduction in tingling/ numbness to lower legs by 50 % during the day. STG Duration 4weeks Fci Goal (LTG) pt will report reduction in tingling/ numbness to lower legs by 80 % during the day. LTG Duration 10 weeks ROM Impairment limited ankle DF and PF Short Term Goal (STG) pt will show improved ankle DF /PF by 5 degrees to improve her gait quality STG Duration 4 weeks Fci Goal (LTG) pt will show improved ankle DF /PF by 10 degrees to improve her gait quality (heel strike and push off) LTG Duration 8 weeks pain Impairment occasional radiating pain to lower leg Short Term Goal (STG) pt will c/o radiating pain to lower legs no more than 3x/wk STG Duration 4 weeks Director [employer] Goal (LTG) pt will c/o radiating pain to lower legs no more than 1x/wk to improve her quality of life LTG Duration 8 weeks Assessment Summary Assessment Ellen is a 71yo female here for her worsening idiopathic peripheral polyneuropathy started a few months ago ( symptoms begin in 2017). pt has no known back injury/ sciatica/ LBP upon assessment but was dx with sensory motor polyneuropathic process that is distal and symmetrical on LEs with slow conduction velocity on peroneal nerve R>l via EMG study. However, pt does show very limited ankle DF and tightness at anterior tibialis which possibly increases neural tension on peroneal nerve by overusing ankle DF during gait cycle. She reports relief after massaging that muscle group. This might indicate her symptoms could be mechanical. Although her PCP did recommend her to acquire AFO, i honestly believe that pt does not have the need yet since she has good motor control, strength and balance at this point. I believe pt can benefit from skilled therapy to address her limited ankle ROM in order to improve her gait quality by reducing mechanical pressure on ankle dorsiflexors. Physical Therapy Plan Frequency and Duration Frequency of Treatment 2x/Week Duration of Treatment 8 weeks Plan of Care Start Date 09/29/21 Plan of Care End Date 11/28/21 Therapeutic Interventions Therapeutic Interventions Balance Training,Gait Training ,Home Exercise Program,Joint Mobilizations,Manual Therapy, Neuromuscular Re-education, Orthotic/Prosthetic Management ,Patient/Caregiver Education, Self-Care/Home Management,Soft Tissue Mobilization,Taping, Therapeutic Activities, Therapeutic Exercises Modalities Cold Pack/Ice Massage,Electric Stimulation,Hot Packs, Infrared Therapy,Ultrasound Next Visit Focus/Plan Next Note Type Treatment Note Next Visit Plan review stretching masasge on ant tib gait training. Plan of Care Dates Plan of Care Start Date 09/29/21 Plan of Care End Date 11/28/21 Electronically Signed by: Jett Flynn PT 10/03/21 0820 Please Sign and Return: I have reviewed this Plan of Care and certify that the skilled therapy services above are required to meet the patient?s needs. Physician Signature Date Printed Name and Credentials Clinical Instructor Signature Printed Name and Credentials
--- NOTE | 2021-09-29 11:58 | PT.OIE ---
Current Diagnoses Hereditary and idiopathic neuropathy, unspecified (09/28/21) Past Medical History (Last Updated 09/02/21 @ 14:15 by Dunia Galvez DO) Abnormal Pap smear of cervix (~1979) Atypical chest pain Cardiac arrhythmia (1992) Chronic rhinitis Colon polyps (2008) Congenital ankyloglossia COPD (chronic obstructive pulmonary disease) Dyspareunia Endometriosis (~1979) Fibroids (~1979) Hemorrhoids Internal hemorrhoids Measles (1959) Mumps (1959) Objective pulsatile tinnitus of left ear Osteopenia (2010) Ovarian cyst (~1979) Peripheral neuropathy Rubella (1959) Skin cancer (2006) Tinnitus of left ear Underweight Vitamin B12 deficiency Past Surgical History (Last Reviewed 10/24/19 @ 14:18 by DEBORAH Sanches) Anesthesia History of third molar tooth extraction S/P total abdominal hysterectomy and bilateral salpingo-oophorectomy (09/2000) Status post tonsillectomy and adenoidectomy (1955) Visit Care Team Role Provider Type Dunia Galvez DO Primary Care Provider Physician Specialty: Family Practice Address: [address] [place] [address], [address], [address] Email: [email or web address] Howard Alfred MD Family Provider Non-Staff Specialty: Cardiology Address: [address] [place] [address], [address] Email: Ronel Verdin MD Attending Provider Non-Staff Referring Provider Specialty: Neurology Address: [address] [place] [address], [address] Email: Physical Therapy Initial Evaluation PT-OP-A Visit Information Start: 09/29/21 11:26 Freq: Status: Active Protocol: Document 09/29/21 11:27 (Rec: 09/29/21 11:58 [email or web address]) Out-Patient Physical Therapy Visit Information Visit Information Visit Type Initial Evaluation Visit Start Time 14:30 Visit Stop Time 15:15 Total Visit Minutes 45 Visit Number 11/16 Number of RENEWALS SPECIALIST Visits 0 Evaluation Information Evaluation Date 09/29/21 Precautions Precautions osteopenia A-fib peripheral polyneauopathy. PT-OP-B Current Condition Start: 09/29/21 11:26 Freq: Status: Active Protocol: Document 09/29/21 11:27 HH (Rec: 09/29/21 11:58 HH [email or web address]) Current Condition History of Current Condition Onset Date couple months ago Current Complaints bilateral tingling/numbness to lower leg R>L History of Current Condition Ellen is a 71yo here for her worsening peripheral polyneuropathy. Per EMr, there were present since 2017 which included tingling and numbness of the back side of lower legs, to vega area and big toe region. She stated her symptoms have progresed and feeling numbness and tightness over the top of feet and ankles, along with some shooting pain in the feet occasionally. She noticed the impairment sensation affects her balance slightly and wearing shoes with good arch support helps. Denies any loss of motor control and weakness . Prior Treatments and Tests EMG 07/24/2019 suggested sensory motor polyneuropathic process that is distal and symmetrical on LEs. not suggestive of L2 to S1 nerve lesion. slow conduction velocity on R peroneal nerve Dr. Verdin recommended massage techniques and exercises on her lower leg to promote blood flow Personal Factors Other Personal Factors That May Effect osteopenia Therapy/Recovery A-fib peripheral polyneauopathy. PT-OP-C Subjective Start: 09/29/21 11:26 Freq: Status: Active Protocol: Document 09/29/21 11:27 HH (Rec: 09/29/21 11:58 [email or web address]) OP-PT Pain Assessment Location lower leg Intensity 5 Scale Used Numeric (0 - 10) Description Shooting Frequency Occasional Variations/Patterns unknown Other Pain Aggravating Factors unknown PT-OP-D Balance Start: 09/29/21 11:26 Freq: Status: Active Protocol: Document 09/29/21 11:27 HH (Rec: 09/29/21 11:58 [email or web address]) Balance Tests Single Limb Standing Single Limb- Right 43 Single Limb- Left 45 PT-OP-F Manual Assessment Start: 09/29/21 11:26 Freq: Status: Active Protocol: Document 09/29/21 11:27 HH (Rec: 09/29/21 11:58 HH [email or web address]) Manual Assessments Soft Tissue Assessment Soft Tissue Mobility Assessment significant [place]city at bilateral anterior tibialis, reports of radiating tingling/ numbness sensation to top of R foot ( reviving the nerve as pt stated Joint Mobility Assessment Joint Mobility Assessment WFL PT-OP-G Mobility & Gait Start: 09/29/21 11:26 Freq: Status: Active Protocol: Document 09/29/21 11:27 HH (Rec: 09/29/21 11:58 [email or web address]) OP Gait Assessment Comments Gait Comments dec heel strike and feet clearance. dec toe push off. PT-OP-H Neuro Start: 09/29/21 11:26 Freq: Status: Active Protocol: Document 09/29/21 11:27 HH (Rec: 09/29/21 11:58 [email or web address]) Sensation Evaluation Gross Sensation Gross Sensation Left LE Impaired,Right LE Impaired Sensation Description Numbness,Tingling Comments Summary Comments dec sensation to light touch R >L (from lateral vega to medial arch and big toe) Deep Tendon Reflex & Clonus Assessment Deep Tendon Reflex Bilateral Achilles Deep Tendon Reflex 2+ Normal Bilateral Patellar Deep Tendon Reflex 2+ Normal PT-OP-K Range of Motion Start: 09/29/21 11:26 Freq: Status: Active Protocol: Document 09/29/21 11:27 HH (Rec: 09/29/21 11:58 [email or web address]) Lumbar Spine Range of Motion Lumbar Spine Active Degrees Comments able to reach midshin, flat spine noted with flexion. No reproduction of symptoms on LEs with trunk related movements. Hip Goniometric Range of Motion Hip Right Active Hip ROM WFL Yes Straight Leg Raise 90 Left Active Hip ROM WFL Yes Straight Leg Raise 90 Knee Goniometric Range of Motion Knee Right Knee ROM WFL Yes Left Knee ROM WFL Yes Ankle and Foot Goniometric Range of Motion Ankle and Foot Right Active Testing Position Supine Dorsiflexion with Knee Flexed 8 Dorsiflexion with Knee Extended 0 Plantarflexion 46 Left Active Testing Position Supine Dorsiflexion with Knee Flexed 10 Dorsiflexion with Knee Extended 2 Plantarflexion 50 PT-OP-M Strength Start: 09/29/21 11:26 Freq: Status: Active Protocol: Document 09/29/21 11:27 HH (Rec: 09/29/21 11:58 [email or web address]) Hip Strength Hip Manual Muscle Testing Right Flexion (L2) 4 Good Extension (S1) 4 Good Abduction 4 Good Adduction 4 Good Left Flexion (L2) 4 Good Extension (S1) 4 Good Abduction 4 Good Adduction 4 Good Knee Strength Knee Manual Muscle Testing Right Flexion (S2) 4+ Good+ Extension (L3) 4+ Good+ Left Flexion (S2) 4+ Good+ Extension (L3) 4+ Good+ Ankle/Foot Strength Ankle and Foot Manual Muscle Testing Right Dorsiflexion (L4) 4+ Good+ Plantarflexion (S1) 4+ Good+ Inversion 4+ Good+ Eversion (S1) 4+ Good+ Left Dorsiflexion (L4) 4+ Good+ Plantarflexion (S1) 4+ Good+ Inversion 4+ Good+ Eversion (S1) 4+ Good+ Toe Strength Toe Manual Muscle Testing Right Great Toe Flexion 5 Normal Extension 5 Normal Left Great Toe Flexion 5 Normal Extension 5 Normal PT-OP-Q Treatments Start: 09/29/21 11:26 Freq: Status: Active Protocol: Document 09/29/21 11:27 (Rec: 09/29/21 11:58 [email or web address]) Therapeutic Exercises Standing Exercises ankle PF Side bilateral Reps/Minutes 20s x5 Comments for HEP calf stretch Side bilateral Reps/Minutes 20s x5 Comments for HEP Manual Therapy Treatment Soft Tissue Mobilization anterior tib Mobilization Type Myofascial Release Intensity/Depth Moderate Body Position Supine Comments significant tightness noted with radiating tingling/ numbness noted at top of the foot but subside after PT-OP-T Assessment and Plan Start: 09/29/21 11:26 Freq: Status: Active Protocol: Document 09/29/21 11:27 (Rec: 09/29/21 11:58 [email or web address]) Physical Therapy Assessment Rehab Potential Rehabilitation Potential Good Evaluation Complexity Number of Personal Factors/Comorbidities 1-2 Number of Body Systems Impaired 1-2 Clinical Presentation at Evaluation Stable Impairments Impairments Activity Tolerance,Balance, Functional Activities, Functional Mobility,Gait,Pain, Posture,ROM,Sensation,Soft Tissue Mobility Goals neuro sign Impairment consistent tingling/ numbness to lower legs Short Term Goal (STG) pt will report reduction in tingling/ numbness to lower legs by 50 % during the day. STG Duration 4weeks Personal Care Service Provider Goal (LTG) pt will report reduction in tingling/ numbness to lower legs by 80 % during the day. LTG Duration 10 weeks ROM Impairment limited ankle DF and PF Short Term Goal (STG) pt will show improved ankle DF /PF by 5 degrees to improve her gait quality STG Duration 4 weeks Personal Care Service Provider Goal (LTG) pt will show improved ankle DF /PF by 10 degrees to improve her gait quality (heel strike and push off) LTG Duration 8 weeks pain Impairment occasional radiating pain to lower leg Short Term Goal (STG) pt will c/o radiating pain to lower legs no more than 3x/wk STG Duration 4 weeks Personal Care Service Provider Goal (LTG) pt will c/o radiating pain to lower legs no more than 1x/wk to improve her quality of life LTG Duration 8 weeks Assessment Summary Assessment Ellen is a 71yo female here for her worsening idiopathic peripheral polyneuropathy started a few months ago ( symptoms begin in 2017). pt has no known back injury/ sciatica/ LBP upon assessment but was dx with sensory motor polyneuropathic process that is distal and symmetrical on LEs with slow conduction velocity on peroneal nerve R>l via EMG study. However, pt does show very limited ankle DF and tightness at anterior tibialis which possibly increases neural tension on peroneal nerve by overusing ankle DF during gait cycle. She reports relief after massaging that muscle group. This might indicate her symptoms could be mechanical. Although her PCP did recommend her to acquire AFO, i honestly believe that pt does not have the need yet since she has good motor control, strength and balance at this point. I believe pt can benefit from skilled therapy to address her limited ankle ROM in order to improve her gait quality by reducing mechanical pressure on ankle dorsiflexors. Physical Therapy Plan Frequency and Duration Frequency of Treatment 2x/Week Duration of Treatment 8 weeks Plan of Care Start Date 09/29/21 Plan of Care End Date 11/28/21 Therapeutic Interventions Therapeutic Interventions Balance Training,Gait Training ,Home Exercise Program,Joint Mobilizations,Manual Therapy, Neuromuscular Re-education, Orthotic/Prosthetic Management ,Patient/Caregiver Education, Self-Care/Home Management,Soft Tissue Mobilization,Taping, Therapeutic Activities, Therapeutic Exercises Modalities Cold Pack/Ice Massage,Electric Stimulation,Hot Packs, Infrared Therapy,Ultrasound Next Visit Focus/Plan Next Note Type Treatment Note Next Visit Plan review stretching masasge on ant tib gait training.
--- NOTE | 2021-09-29 11:58 | PT.OPPOC ---
Physical, Occupational & Speech Therapy At [facility] Current Diagnoses Hereditary and idiopathic neuropathy, unspecified (09/28/21) Visit Care Team Role Provider Type Dunia Galvez DO Primary Care Provider Physician Specialty: Family Practice Address: [address] [place] [address], [facility] [address], [place], [address] Email: [email or web address] Howard Alfred MD Family Provider Non-Staff Specialty: Cardiology Address: [address] [place] [address], [address] Email: Ronel Verdin MD Attending Provider Non-Staff Referring Provider Specialty: Neurology Address: [address] [place], [address] Email: Plan Of Care PT-OP-T Assessment and Plan Start: 09/29/21 11:26 Freq: Status: Active Protocol: Document 09/29/21 11:27 (Rec: 09/29/21 11:58 [email or web address]) Physical Therapy Assessment Rehab Potential Rehabilitation Potential Good Evaluation Complexity Number of Personal Factors/Comorbidities 1-2 Number of Body Systems Impaired 1-2 Clinical Presentation at Evaluation Stable Impairments Impairments Activity Tolerance,Balance, Functional Activities, Functional Mobility,Gait,Pain, Posture,ROM,Sensation,Soft Tissue Mobility Goals neuro sign Impairment consistent tingling/ numbness to lower legs Short Term Goal (STG) pt will report reduction in tingling/ numbness to lower legs by 50 % during the day. STG Duration 4weeks Half-Way Goal (LTG) pt will report reduction in tingling/ numbness to lower legs by 80 % during the day. LTG Duration 10 weeks ROM Impairment limited ankle DF and PF Short Term Goal (STG) pt will show improved ankle DF /PF by 5 degrees to improve her gait quality STG Duration 4 weeks Half-Way Goal (LTG) pt will show improved ankle DF /PF by 10 degrees to improve her gait quality (heel strike and push off) LTG Duration 8 weeks pain Impairment occasional radiating pain to lower leg Short Term Goal (STG) pt will c/o radiating pain to lower legs no more than 3x/wk STG Duration 4 weeks Ink Printer Goal (LTG) pt will c/o radiating pain to lower legs no more than 1x/wk to improve her quality of life LTG Duration 8 weeks Assessment Summary Assessment Ellen is a 71yo female here for her worsening idiopathic peripheral polyneuropathy started a few months ago ( symptoms begin in 2017). pt has no known back injury/ sciatica/ LBP upon assessment but was dx with sensory motor polyneuropathic process that is distal and symmetrical on LEs with slow conduction velocity on peroneal nerve R>l via EMG study. However, pt does show very limited ankle DF and tightness at anterior tibialis which possibly increases neural tension on peroneal nerve by overusing ankle DF during gait cycle. She reports relief after massaging that muscle group. This might indicate her symptoms could be mechanical. Although her PCP did recommend her to acquire AFO, i honestly believe that pt does not have the need yet since she has good motor control, strength and balance at this point. I believe pt can benefit from skilled therapy to address her limited ankle ROM in order to improve her gait quality by reducing mechanical pressure on ankle dorsiflexors. Physical Therapy Plan Frequency and Duration Frequency of Treatment 2x/Week Duration of Treatment 8 weeks Plan of Care Start Date 09/29/21 Plan of Care End Date 11/28/21 Therapeutic Interventions Therapeutic Interventions Balance Training,Gait Training ,Home Exercise Program,Joint Mobilizations,Manual Therapy, Neuromuscular Re-education, Orthotic/Prosthetic Management ,Patient/Caregiver Education, Self-Care/Home Management,Soft Tissue Mobilization,Taping, Therapeutic Activities, Therapeutic Exercises Modalities Cold Pack/Ice Massage,Electric Stimulation,Hot Packs, Infrared Therapy,Ultrasound Next Visit Focus/Plan Next Note Type Treatment Note Next Visit Plan review stretching masasge on ant tib gait training. Plan of Care Dates Plan of Care Start Date 09/29/21 Plan of Care End Date 11/28/21 Electronically Signed by: Jett Flynn PT 09/29/21 2552 Please Sign and Return: I have reviewed this Plan of Care and certify that the skilled therapy services above are required to meet the patient?s needs. Physician Signature Date Printed Name and Credentials Clinical Instructor Signature Printed Name and Credentials
--- NOTE | 2021-10-04 12:23 | PT.OTN ---
Current Diagnoses Hereditary and idiopathic neuropathy, unspecified (10/04/21) Physical Therapy Treatment Note PT-OP-A Visit Information Start: 09/29/21 11:26 Freq: Status: Active Protocol: Document 10/04/21 11:15 AW (Rec: 10/04/21 11:18 AW [id number]) Out-Patient Physical Therapy Visit Information Visit Information Visit Type Treatment Note Visit Start Time 10:30 Visit Stop Time 11:15 Total Visit Minutes 45 Visit Number / Number of CLINICAL SUPPORT MANAGER Visits 0 Evaluation Information Evaluation Date 09/29/21 Precautions Precautions osteopenia A-fib peripheral polyneauopathy. PT-OP-B Current Condition Start: 09/29/21 11:26 Freq: Status: Active Protocol: Document 09/28/21 11:27 HH (Rec: 09/29/21 11:58 HH [email or web address]) Current Condition History of Current Condition Onset Date couple months ago Current Complaints bilateral tingling/numbness to lower leg R>L History of Current Condition Ellen is a 71yo here for her worsening peripheral polyneuropathy. Per EMr, there were present since 2017 which included tingling and numbness of the back side of lower legs, to vega area and big toe region. She stated her symptoms have progresed and feeling numbness and tightness over the top of feet and ankles, along with some shooting pain in the feet occasionally. She noticed the impairment sensation affects her balance slightly and wearing shoes with good arch support helps. Denies any loss of motor control and weakness . Prior Treatments and Tests EMG 07/24/2019 suggested sensory motor polyneuropathic process that is distal and symmetrical on LEs. not suggestive of L2 to S1 nerve lesion. slow conduction velocity on R peroneal nerve Dr. Verdin recommended massage techniques and exercises on her lower leg to promote blood flow Personal Factors Other Personal Factors That May Effect osteopenia Therapy/Recovery A-fib peripheral polyneauopathy. PT-OP-C Subjective Start: 09/29/21 11:26 Freq: Status: Active Protocol: Document 10/04/21 11:15 AW (Rec: 10/04/21 11:18 AW [id number]) OP-PT Subjective Patient Comments Patient Comments Numbness and tingling started distally several years ago. Has experienced proximal creep in her symptoms. Patient Reported Progress Same PT-OP-D Balance Start: 09/29/21 11:26 Freq: Status: Active Protocol: Document 09/28/21 11:27 HH (Rec: 09/29/21 11:58 [email or web address]) Balance Tests Single Limb Standing Single Limb- Right 43 Single Limb- Left 45 PT-OP-F Manual Assessment Start: 09/29/21 11:26 Freq: Status: Active Protocol: Document 09/28/21 11:27 HH (Rec: 09/29/21 11:58 [email or web address]) Manual Assessments Soft Tissue Assessment Soft Tissue Mobility Assessment significant toncity at bilateral anterior tibialis, reports of radiating tingling/ numbness sensation to top of R foot ( reviving the nerve as pt stated Joint Mobility Assessment Joint Mobility Assessment WFL PT-OP-G Mobility & Gait Start: 09/29/21 11:26 Freq: Status: Active Protocol: Document 09/28/21 11:27 HH (Rec: 09/29/21 11:58 [email or web address]) OP Gait Assessment Comments Gait Comments dec heel strike and feet clearance. dec toe push off. PT-OP-H Neuro Start: 09/29/21 11:26 Freq: Status: Active Protocol: Document 09/28/21 11:27 HH (Rec: 09/29/21 11:58 [email or web address]) Sensation Evaluation Gross Sensation Gross Sensation Left LE Impaired,Right LE Impaired Sensation Description Numbness,Tingling Comments Summary Comments dec sensation to light touch R >L (from lateral vega to medial arch and big toe) Deep Tendon Reflex & Clonus Assessment Deep Tendon Reflex Bilateral Achilles Deep Tendon Reflex 2+ Normal Bilateral Patellar Deep Tendon Reflex 2+ Normal PT-OP-K Range of Motion Start: 09/29/21 11:26 Freq: Status: Active Protocol: Document 09/28/21 11:27 HH (Rec: 09/29/21 11:58 [email or web address]) Lumbar Spine Range of Motion Lumbar Spine Active Degrees Comments able to reach midshin, flat spine noted with flexion. No reproduction of symptoms on LEs with trunk related movements. Hip Goniometric Range of Motion Hip Right Active Hip ROM WFL Yes Straight Leg Raise 90 Left Active Hip ROM WFL Yes Straight Leg Raise 90 Knee Goniometric Range of Motion Knee Right Knee ROM WFL Yes Left Knee ROM WFL Yes Ankle and Foot Goniometric Range of Motion Ankle and Foot Right Active Testing Position Supine Dorsiflexion with Knee Flexed 8 Dorsiflexion with Knee Extended 0 Plantarflexion 46 Left Active Testing Position Supine Dorsiflexion with Knee Flexed 10 Dorsiflexion with Knee Extended 2 Plantarflexion 50 PT-OP-M Strength Start: 09/29/21 11:26 Freq: Status: Active Protocol: Document 09/28/21 11:27 HH (Rec: 09/29/21 11:58 HH [email or web address]) Hip Strength Hip Manual Muscle Testing Right Flexion (L2) 4 Good Extension (S1) 4 Good Abduction 4 Good Adduction 4 Good Left Flexion (L2) 4 Good Extension (S1) 4 Good Abduction 4 Good Adduction 4 Good Knee Strength Knee Manual Muscle Testing Right Flexion (S2) 4+ Good+ Extension (L3) 4+ Good+ Left Flexion (S2) 4+ Good+ Extension (L3) 4+ Good+ Ankle/Foot Strength Ankle and Foot Manual Muscle Testing Right Dorsiflexion (L4) 4+ Good+ Plantarflexion (S1) 4+ Good+ Inversion 4+ Good+ Eversion (S1) 4+ Good+ Left Dorsiflexion (L4) 4+ Good+ Plantarflexion (S1) 4+ Good+ Inversion 4+ Good+ Eversion (S1) 4+ Good+ Toe Strength Toe Manual Muscle Testing Right Great Toe Flexion 5 Normal Extension 5 Normal Left Great Toe Flexion 5 Normal Extension 5 Normal PT-OP-Q Treatments Start: 09/29/21 11:26 Freq: Status: Active Protocol: Document 10/04/21 11:15 AW (Rec: 10/04/21 11:18 AW [id number]) Cardio Equipment Recumbent Bicycle Duration (Minutes) 5 Resistance 4 Seat Position 3 Therapeutic Exercises Sitting Exercises ankle 4 way Sitting Exercise Name ankle 4 way Side bilateral Resistance AROM Reps/Minutes x10 Comments assigned alphabet for HEP Standing Exercises calf stretch Standing Exercise Name gastroc and soleus Side bilateral Reps/Minutes 20s x5 Comments for HEP Manual Therapy Treatment Soft Tissue Mobilization anterior tib Body Location b ant tib Mobilization Type Myofascial Release Intensity/Depth Moderate Body Position Supine Comments significant tightness noted with radiating tingling/ numbness noted at top of the foot but subside after Joint Mobilizations fibular head Direction A/P Grade II Body Position Supine Self-Care/Home Management Treatment Education Patient Education Pain Management Other Education Educated pt on levels of compression and recommended knee high compression socks with 20-30 mm Hg. PT-OP-T Assessment and Plan Start: 09/29/21 11:26 Freq: Status: Active Protocol: Document 10/04/21 11:15 AW (Rec: 10/04/21 12:23 AW [email or web address]) Physical Therapy Assessment Goals neuro sign Impairment consistent tingling/ numbness to lower legs Short Term Goal (STG) pt will report reduction in tingling/ numbness to lower legs by 50 % during the day. STG Duration 4weeks Alf Goal (LTG) pt will report reduction in tingling/ numbness to lower legs by 80 % during the day. LTG Duration 10 weeks ROM Impairment limited ankle DF and PF Short Term Goal (STG) pt will show improved ankle DF /PF by 5 degrees to improve her gait quality STG Duration 4 weeks Claims Sorter Goal (LTG) pt will show improved ankle DF /PF by 10 degrees to improve her gait quality (heel strike and push off) LTG Duration 8 weeks pain Impairment occasional radiating pain to lower leg Short Term Goal (STG) pt will c/o radiating pain to lower legs no more than 3x/wk STG Duration 4 weeks Claims Sorter Goal (LTG) pt will c/o radiating pain to lower legs no more than 1x/wk to improve her quality of life LTG Duration 8 weeks Assessment Summary Assessment Eleln reports no change in symptoms since evluation. She responds well to education on anatomy and possible sources of sensation disturbance. Tx focused on STM bilateral anterior tibialis and ankle ROM. Assigned AROM and soleus stretch for HEP and will follow up at next visit. Physical Therapy Plan Frequency and Duration Frequency of Treatment 2x/Week Duration of Treatment 8 weeks Plan of Care Start Date 09/29/21 Plan of Care End Date 11/28/21 Therapeutic Interventions Therapeutic Interventions Balance Training,Gait Training ,Home Exercise Program,Joint Mobilizations,Manual Therapy, Neuromuscular Re-education, Orthotic/Prosthetic Management ,Patient/Caregiver Education, Self-Care/Home Management,Soft Tissue Mobilization,Taping, Therapeutic Activities, Therapeutic Exercises Modalities Cold Pack/Ice Massage,Electric Stimulation,Hot Packs, Infrared Therapy,Ultrasound Next Visit Focus/Plan Next Note Type Treatment Note Next Visit Plan follow up recommendation for compression garment.
--- NOTE | 2021-10-06 12:12 | PT.OTN ---
Current Diagnoses Hereditary and idiopathic neuropathy, unspecified (10/06/21) Physical Therapy Treatment Note PT-OP-A Visit Information Start: 09/29/21 11:26 Freq: Status: Active Protocol: Document 10/06/21 12:00 AW (Rec: 10/06/21 12:08 AW [id number]) Out-Patient Physical Therapy Visit Information Visit Information Visit Type Treatment Note Visit Start Time 11:19 Visit Stop Time 12:03 Total Visit Minutes 44 Visit Number 01/14 Number of BILLING SPEC Visits 0 Evaluation Information Evaluation Date 09/29/21 Precautions Precautions osteopenia A-fib peripheral polyneauopathy. does not tolerate quadruped due to right knee pain PT-OP-B Current Condition Start: 09/29/21 11:26 Freq: Status: Active Protocol: Document 09/28/21 11:27 HH (Rec: 09/29/21 11:58 HH [email or web address]) Current Condition History of Current Condition Onset Date couple months ago Current Complaints bilateral tingling/numbness to lower leg R>L History of Current Condition Ellen is a 71yo here for her worsening peripheral polyneuropathy. Per EMr, there were present since 2017 which included tingling and numbness of the back side of lower legs, to vega area and big toe region. She stated her symptoms have progresed and feeling numbness and tightness over the top of feet and ankles, along with some shooting pain in the feet occasionally. She noticed the impairment sensation affects her balance slightly and wearing shoes with good arch support helps. Denies any loss of motor control and weakness . Prior Treatments and Tests EMG 07/24/2019 suggested sensory motor polyneuropathic process that is distal and symmetrical on LEs. not suggestive of L2 to S1 nerve lesion. slow conduction velocity on R peroneal nerve Dr. Verdin recommended massage techniques and exercises on her lower leg to promote blood flow Personal Factors Other Personal Factors That May Effect osteopenia Therapy/Recovery A-fib peripheral polyneauopathy. PT-OP-C Subjective Start: 09/29/21 11:26 Freq: Status: Active Protocol: Document 10/06/21 12:00 AW (Rec: 10/06/21 12:08 AW [id number]) OP-PT Subjective Patient Comments Patient Comments I have a question about one of those stretches. OP-PT Pain Assessment Location lower leg Intensity 6 Scale Used Numeric (0 - 10) PT-OP-D Balance Start: 09/29/21 11:26 Freq: Status: Active Protocol: Document 09/28/21 11:27 HH (Rec: 09/29/21 11:58 [email or web address]) Balance Tests Single Limb Standing Single Limb- Right 43 Single Limb- Left 45 PT-OP-F Manual Assessment Start: 09/29/21 11:26 Freq: Status: Active Protocol: Document 09/28/21 11:27 HH (Rec: 09/29/21 11:58 [email or web address]) Manual Assessments Soft Tissue Assessment Soft Tissue Mobility Assessment significant toncity at bilateral anterior tibialis, reports of radiating tingling/ numbness sensation to top of R foot ( reviving the nerve as pt stated Joint Mobility Assessment Joint Mobility Assessment WFL PT-OP-G Mobility & Gait Start: 09/29/21 11:26 Freq: Status: Active Protocol: Document 09/28/21 11:27 HH (Rec: 09/29/21 11:58 [email or web address]) OP Gait Assessment Comments Gait Comments dec heel strike and feet clearance. dec toe push off. PT-OP-H Neuro Start: 09/29/21 11:26 Freq: Status: Active Protocol: Document 09/28/21 11:27 HH (Rec: 09/29/21 11:58 [email or web address]) Sensation Evaluation Gross Sensation Gross Sensation Left LE Impaired,Right LE Impaired Sensation Description Numbness,Tingling Comments Summary Comments dec sensation to light touch R >L (from lateral vega to medial arch and big toe) Deep Tendon Reflex & Clonus Assessment Deep Tendon Reflex Bilateral Achilles Deep Tendon Reflex 2+ Normal Bilateral Patellar Deep Tendon Reflex 2+ Normal PT-OP-K Range of Motion Start: 09/29/21 11:26 Freq: Status: Active Protocol: Document 09/28/21 11:27 HH (Rec: 09/29/21 11:58 [email or web address]) Lumbar Spine Range of Motion Lumbar Spine Active Degrees Comments able to reach midshin, flat spine noted with flexion. No reproduction of symptoms on LEs with trunk related movements. Hip Goniometric Range of Motion Hip Right Active Hip ROM WFL Yes Straight Leg Raise 90 Left Active Hip ROM WFL Yes Straight Leg Raise 90 Knee Goniometric Range of Motion Knee Right Knee ROM WFL Yes Left Knee ROM WFL Yes Ankle and Foot Goniometric Range of Motion Ankle and Foot Right Active Testing Position Supine Dorsiflexion with Knee Flexed 8 Dorsiflexion with Knee Extended 0 Plantarflexion 46 Left Active Testing Position Supine Dorsiflexion with Knee Flexed 10 Dorsiflexion with Knee Extended 2 Plantarflexion 50 PT-OP-M Strength Start: 09/29/21 11:26 Freq: Status: Active Protocol: Document 09/28/21 11:27 HH (Rec: 09/29/21 11:58 HH [email or web address]) Hip Strength Hip Manual Muscle Testing Right Flexion (L2) 4 Good Extension (S1) 4 Good Abduction 4 Good Adduction 4 Good Left Flexion (L2) 4 Good Extension (S1) 4 Good Abduction 4 Good Adduction 4 Good Knee Strength Knee Manual Muscle Testing Right Flexion (S2) 4+ Good+ Extension (L3) 4+ Good+ Left Flexion (S2) 4+ Good+ Extension (L3) 4+ Good+ Ankle/Foot Strength Ankle and Foot Manual Muscle Testing Right Dorsiflexion (L4) 4+ Good+ Plantarflexion (S1) 4+ Good+ Inversion 4+ Good+ Eversion (S1) 4+ Good+ Left Dorsiflexion (L4) 4+ Good+ Plantarflexion (S1) 4+ Good+ Inversion 4+ Good+ Eversion (S1) 4+ Good+ Toe Strength Toe Manual Muscle Testing Right Great Toe Flexion 5 Normal Extension 5 Normal Left Great Toe Flexion 5 Normal Extension 5 Normal PT-OP-Q Treatments Start: 09/29/21 11:26 Freq: Status: Active Protocol: Document 10/06/21 12:00 AW (Rec: 10/06/21 12:08 AW [id number]) Cardio Equipment Recumbent Bicycle Duration (Minutes) 5 Resistance 4 Seat Position 3 Therapeutic Exercises Supine Exercises pelvic alignment Supine Exercise Name iso hip abd alternating with iso hip adduction Side bilateral Comments in response to sudden onset groing pain right side; resolved before end tx active SLR Supine Exercise Name active SLR Side bilateral Reps/Minutes x15 Comments with cues for neutral ankle; HEP peroneal nerve glide Supine Exercise Name peroneal nerve glide Side bilateral Reps/Minutes x10 Comments HEP Sidelying Exercises hip abduction Sidelying Exercise Name hip abduction Side bilateral Resistance AROM Reps/Minutes x20 Comments left hip clunk in extension Standing Exercises calf stretch Standing Exercise Name gastroc only Side bilateral Reps/Minutes 20s x5 Comments soleus stretch irritates anterior ankle Manual Therapy Treatment Soft Tissue Mobilization anterior tib Body Location b ant tib Mobilization Type Myofascial Release Intensity/Depth Moderate Body Position Supine Comments significant tightness noted with radiating tingling/ numbness noted at top of the foot but subside after PT-OP-T Assessment and Plan Start: 09/29/21 11:26 Freq: Status: Active Protocol: Document 10/06/21 12:00 AW (Rec: 10/06/21 12:12 AW [email or web address]) Physical Therapy Assessment Goals neuro sign Impairment consistent tingling/ numbness to lower legs Short Term Goal (STG) pt will report reduction in tingling/ numbness to lower legs by 50 % during the day. STG Duration 4weeks Quick Print Operator Goal (LTG) pt will report reduction in tingling/ numbness to lower legs by 80 % during the day. LTG Duration 10 weeks ROM Impairment limited ankle DF and PF Short Term Goal (STG) pt will show improved ankle DF /PF by 5 degrees to improve her gait quality STG Duration 4 weeks Intermediate Goal (LTG) pt will show improved ankle DF /PF by 10 degrees to improve her gait quality (heel strike and push off) LTG Duration 8 weeks pain Impairment occasional radiating pain to lower leg Short Term Goal (STG) pt will c/o radiating pain to lower legs no more than 3x/wk STG Duration 4 weeks Quick Print Operator Goal (LTG) pt will c/o radiating pain to lower legs no more than 1x/wk to improve her quality of life LTG Duration 8 weeks Assessment Summary Assessment Pt has cyst at anterolateral ankle and signs of right knee patellofemoral syndrome which may be contributing to her presentation. While rolling supine <> sidelying today, pt reported signs of left hip and groin pain which should be watched in follow-up appointments. Soleus stretch irritates anterior ankle ( pinching) and is discontinued from HEP. Physical Therapy Plan Frequency and Duration Frequency of Treatment 2x/Week Duration of Treatment 8 weeks Plan of Care Start Date 09/29/21 Plan of Care End Date 11/28/21 Therapeutic Interventions Therapeutic Interventions Balance Training,Gait Training ,Home Exercise Program,Joint Mobilizations,Manual Therapy, Neuromuscular Re-education, Orthotic/Prosthetic Management ,Patient/Caregiver Education, Self-Care/Home Management,Soft Tissue Mobilization,Taping, Therapeutic Activities, Therapeutic Exercises Modalities Cold Pack/Ice Massage,Electric Stimulation,Hot Packs, Infrared Therapy,Ultrasound Next Visit Focus/Plan Next Note Type Treatment Note Next Visit Plan Follow up recommendation for compression garment, right knee pain, left hip pain. MT for dorsiflexion ROM and possible self-mob.
--- NOTE | 2021-10-11 12:17 | PT.OTN ---
Current Diagnoses Hereditary and idiopathic neuropathy, unspecified (10/11/21) Physical Therapy Treatment Note PT-OP-A Visit Information Start: 09/29/21 11:26 Freq: Status: Active Protocol: Document 10/11/21 12:00 AW (Rec: 10/11/21 12:07 AW [id number]) Out-Patient Physical Therapy Visit Information Visit Information Visit Type Treatment Note Visit Start Time 11:20 Visit Stop Time 12:00 Total Visit Minutes 40 Visit Number 02/14 Evaluation Information Evaluation Date 09/29/21 Precautions Precautions osteopenia A-fib peripheral polyneauopathy. does not tolerate quadruped due to right knee pain PT-OP-B Current Condition Start: 09/29/21 11:26 Freq: Status: Active Protocol: Document 09/28/21 11:27 HH (Rec: 09/29/21 11:58 HH [email or web address]) Current Condition History of Current Condition Onset Date couple months ago Current Complaints bilateral tingling/numbness to lower leg R>L History of Current Condition Ellen is a 71yo here for her worsening peripheral polyneuropathy. Per EMr, there were present since 2017 which included tingling and numbness of the back side of lower legs, to vega area and big toe region. She stated her symptoms have progresed and feeling numbness and tightness over the top of feet and ankles, along with some shooting pain in the feet occasionally. She noticed the impairment sensation affects her balance slightly and wearing shoes with good arch support helps. Denies any loss of motor control and weakness . Prior Treatments and Tests EMG 07/24/2019 suggested sensory motor polyneuropathic process that is distal and symmetrical on LEs. not suggestive of L2 to S1 nerve lesion. slow conduction velocity on R peroneal nerve Dr. Verdin recommended massage techniques and exercises on her lower leg to promote blood flow Personal Factors Other Personal Factors That May Effect osteopenia Therapy/Recovery A-fib peripheral polyneauopathy. PT-OP-C Subjective Start: 09/29/21 11:26 Freq: Status: Active Protocol: Document 10/11/21 12:00 AW (Rec: 10/11/21 12:07 AW [id number]) OP-PT Subjective Patient Comments Patient Comments I have less cramping now when I do the stretches. Pt also reports concern about a three- hour drive to [place] on Sunday and would like some ideas to deal with problematic numbness. PT-OP-D Balance Start: 09/29/21 11:26 Freq: Status: Active Protocol: Document 09/28/21 11:27 HH (Rec: 09/29/21 11:58 [email or web address]) Balance Tests Single Limb Standing Single Limb- Right 43 Single Limb- Left 45 PT-OP-F Manual Assessment Start: 09/29/21 11:26 Freq: Status: Active Protocol: Document 09/28/21 11:27 HH (Rec: 09/29/21 11:58 [email or web address]) Manual Assessments Soft Tissue Assessment Soft Tissue Mobility Assessment significant toncity at bilateral anterior tibialis, reports of radiating tingling/ numbness sensation to top of R foot ( reviving the nerve as pt stated Joint Mobility Assessment Joint Mobility Assessment WFL PT-OP-G Mobility & Gait Start: 09/29/21 11:26 Freq: Status: Active Protocol: Document 09/28/21 11:27 HH (Rec: 09/29/21 11:58 [email or web address]) OP Gait Assessment Comments Gait Comments dec heel strike and feet clearance. dec toe push off. PT-OP-H Neuro Start: 09/29/21 11:26 Freq: Status: Active Protocol: Document 09/28/21 11:27 HH (Rec: 09/29/21 11:58 [email or web address]) Sensation Evaluation Gross Sensation Gross Sensation Left LE Impaired,Right LE Impaired Sensation Description Numbness,Tingling Comments Summary Comments dec sensation to light touch R >L (from lateral vega to medial arch and big toe) Deep Tendon Reflex & Clonus Assessment Deep Tendon Reflex Bilateral Achilles Deep Tendon Reflex 2+ Normal Bilateral Patellar Deep Tendon Reflex 2+ Normal PT-OP-K Range of Motion Start: 09/29/21 11:26 Freq: Status: Active Protocol: Document 09/28/21 11:27 HH (Rec: 09/29/21 11:58 [email or web address]) Lumbar Spine Range of Motion Lumbar Spine Active Degrees Comments able to reach midshin, flat spine noted with flexion. No reproduction of symptoms on LEs with trunk related movements. Hip Goniometric Range of Motion Hip Right Active Hip ROM WFL Yes Straight Leg Raise 90 Left Active Hip ROM WFL Yes Straight Leg Raise 90 Knee Goniometric Range of Motion Knee Right Knee ROM WFL Yes Left Knee ROM WFL Yes Ankle and Foot Goniometric Range of Motion Ankle and Foot Right Active Testing Position Supine Dorsiflexion with Knee Flexed 8 Dorsiflexion with Knee Extended 0 Plantarflexion 46 Left Active Testing Position Supine Dorsiflexion with Knee Flexed 10 Dorsiflexion with Knee Extended 2 Plantarflexion 50 PT-OP-M Strength Start: 09/29/21 11:26 Freq: Status: Active Protocol: Document 09/28/21 11:27 HH (Rec: 09/29/21 11:58 HH [email or web address]) Hip Strength Hip Manual Muscle Testing Right Flexion (L2) 4 Good Extension (S1) 4 Good Abduction 4 Good Adduction 4 Good Left Flexion (L2) 4 Good Extension (S1) 4 Good Abduction 4 Good Adduction 4 Good Knee Strength Knee Manual Muscle Testing Right Flexion (S2) 4+ Good+ Extension (L3) 4+ Good+ Left Flexion (S2) 4+ Good+ Extension (L3) 4+ Good+ Ankle/Foot Strength Ankle and Foot Manual Muscle Testing Right Dorsiflexion (L4) 4+ Good+ Plantarflexion (S1) 4+ Good+ Inversion 4+ Good+ Eversion (S1) 4+ Good+ Left Dorsiflexion (L4) 4+ Good+ Plantarflexion (S1) 4+ Good+ Inversion 4+ Good+ Eversion (S1) 4+ Good+ Toe Strength Toe Manual Muscle Testing Right Great Toe Flexion 5 Normal Extension 5 Normal Left Great Toe Flexion 5 Normal Extension 5 Normal PT-OP-Q Treatments Start: 09/29/21 11:26 Freq: Status: Active Protocol: Document 10/11/21 12:00 AW (Rec: 10/11/21 12:07 AW [id number]) Cardio Equipment Recumbent Bicycle Duration (Minutes) 5 Resistance 4 Seat Position 3 Therapeutic Exercises Supine Exercises active SLR Supine Exercise Name active SLR Side bilateral Reps/Minutes x15 Comments with cues for neutral ankle; HEP peroneal nerve glide Supine Exercise Name peroneal nerve glide Side bilateral Reps/Minutes x10 Comments with straight leg supported on table today Sitting Exercises LAQ Sitting Exercise Name LAQ Side bilateral Resistance AROM Reps/Minutes 5SH x 10 Comments HEP Standing Exercises ankle PF Side bilateral Reps/Minutes 20s x5 Comments for HEP calf stretch Standing Exercise Name gastroc and soleus Side bilateral Reps/Minutes 20s x5 Comments no pinching today Manual Therapy Treatment Soft Tissue Mobilization anterior tib Body Location b ant tib Mobilization Type Myofascial Release Intensity/Depth Moderate Body Position Supine Comments significant tightness noted with radiating tingling/ numbness noted at top of the foot but subside after Joint Mobilizations fibular head Direction A/P Grade II Body Position Supine Self-Care/Home Management Treatment Education Patient Education Home Exercise Program,Safety Other Education Added LAQ to HEP for neural tensioning and quad strength. Advised pt to plan breaks/rest stops for long drive coming up. Also advised her to complete heel raises and stretches before and during travel. PT-OP-T Assessment and Plan Start: 09/29/21 11:26 Freq: Status: Active Protocol: Document 10/11/21 12:00 AW (Rec: 10/11/21 12:16 AW [email or web address]) Physical Therapy Assessment Goals neuro sign Impairment consistent tingling/ numbness to lower legs Short Term Goal (STG) pt will report reduction in tingling/ numbness to lower legs by 50 % during the day. STG Duration 4weeks Standpipe Tender Goal (LTG) pt will report reduction in tingling/ numbness to lower legs by 80 % during the day. LTG Duration 10 weeks ROM Impairment limited ankle DF and PF Short Term Goal (STG) pt will show improved ankle DF /PF by 5 degrees to improve her gait quality STG Duration 4 weeks Standpipe Tender Goal (LTG) pt will show improved ankle DF /PF by 10 degrees to improve her gait quality (heel strike and push off) LTG Duration 8 weeks pain Impairment occasional radiating pain to lower leg Short Term Goal (STG) pt will c/o radiating pain to lower legs no more than 3x/wk STG Duration 4 weeks Standpipe Tender Goal (LTG) pt will c/o radiating pain to lower legs no more than 1x/wk to improve her quality of life LTG Duration 8 weeks Assessment Summary Assessment Ellen reports mild improvement in tingling symptoms along with improved tolerance for HEP. She is proximally weak and would benefit from bilateral hip/knee strengthening. Physical Therapy Plan Frequency and Duration Frequency of Treatment 2x/Week Duration of Treatment 8 weeks Plan of Care Start Date 09/29/21 Plan of Care End Date 11/28/21 Therapeutic Interventions Therapeutic Interventions Balance Training,Gait Training ,Home Exercise Program,Joint Mobilizations,Manual Therapy, Neuromuscular Re-education, Orthotic/Prosthetic Management ,Patient/Caregiver Education, Self-Care/Home Management,Soft Tissue Mobilization,Taping, Therapeutic Activities, Therapeutic Exercises Modalities Cold Pack/Ice Massage,Electric Stimulation,Hot Packs, Infrared Therapy,Ultrasound Next Visit Focus/Plan Next Note Type Treatment Note Next Visit Plan Follow up recommendation for compression garment. MT for dorsiflexion ROM and possible self-mob. Proximal strengthening.
--- NOTE | 2021-10-13 12:15 | PT.OTN ---
Current Diagnoses Hereditary and idiopathic neuropathy, unspecified (10/13/21) Physical Therapy Treatment Note PT-OP-A Visit Information Start: 09/29/21 11:26 Freq: Status: Active Protocol: Document 10/13/21 12:00 AW (Rec: 10/13/21 12:08 AW [id number]) Out-Patient Physical Therapy Visit Information Visit Information Visit Type Treatment Note Visit Start Time 11:15 Visit Stop Time 12:00 Total Visit Minutes 45 Visit Number 03/16 Evaluation Information Evaluation Date 09/29/21 Precautions Precautions osteopenia A-fib peripheral polyneauopathy. does not tolerate quadruped due to right knee pain PT-OP-B Current Condition Start: 09/29/21 11:26 Freq: Status: Active Protocol: Document 09/28/21 11:27 HH (Rec: 09/29/21 11:58 HH [email or web address]) Current Condition History of Current Condition Onset Date couple months ago Current Complaints bilateral tingling/numbness to lower leg R>L History of Current Condition Ellen is a 71yo here for her worsening peripheral polyneuropathy. Per EMr, there were present since 2017 which included tingling and numbness of the back side of lower legs, to vega area and big toe region. She stated her symptoms have progresed and feeling numbness and tightness over the top of feet and ankles, along with some shooting pain in the feet occasionally. She noticed the impairment sensation affects her balance slightly and wearing shoes with good arch support helps. Denies any loss of motor control and weakness . Prior Treatments and Tests EMG 07/24/2019 suggested sensory motor polyneuropathic process that is distal and symmetrical on LEs. not suggestive of L2 to S1 nerve lesion. slow conduction velocity on R peroneal nerve Dr. Verdin recommended massage techniques and exercises on her lower leg to promote blood flow Personal Factors Other Personal Factors That May Effect osteopenia Therapy/Recovery A-fib peripheral polyneauopathy. PT-OP-C Subjective Start: 09/29/21 11:26 Freq: Status: Active Protocol: Document 10/13/21 12:00 AW (Rec: 10/13/21 12:08 AW [id number]) OP-PT Subjective Patient Comments Patient Comments Symptoms remain relatively the same. No new complaints other than noticing weakness in the hips while doing supine leg lifts. PT-OP-D Balance Start: 09/29/21 11:26 Freq: Status: Active Protocol: Document 09/28/21 11:27 HH (Rec: 09/29/21 11:58 [email or web address]) Balance Tests Single Limb Standing Single Limb- Right 43 Single Limb- Left 45 PT-OP-F Manual Assessment Start: 09/29/21 11:26 Freq: Status: Active Protocol: Document 09/28/21 11:27 HH (Rec: 09/29/21 11:58 [email or web address]) Manual Assessments Soft Tissue Assessment Soft Tissue Mobility Assessment significant toncity at bilateral anterior tibialis, reports of radiating tingling/ numbness sensation to top of R foot ( reviving the nerve as pt stated Joint Mobility Assessment Joint Mobility Assessment WFL PT-OP-G Mobility & Gait Start: 09/29/21 11:26 Freq: Status: Active Protocol: Document 09/28/21 11:27 HH (Rec: 09/29/21 11:58 [email or web address]) OP Gait Assessment Comments Gait Comments dec heel strike and feet clearance. dec toe push off. PT-OP-H Neuro Start: 09/29/21 11:26 Freq: Status: Active Protocol: Document 09/28/21 11:27 HH (Rec: 09/29/21 11:58 [email or web address]) Sensation Evaluation Gross Sensation Gross Sensation Left LE Impaired,Right LE Impaired Sensation Description Numbness,Tingling Comments Summary Comments dec sensation to light touch R >L (from lateral vega to medial arch and big toe) Deep Tendon Reflex & Clonus Assessment Deep Tendon Reflex Bilateral Achilles Deep Tendon Reflex 2+ Normal Bilateral Patellar Deep Tendon Reflex 2+ Normal PT-OP-K Range of Motion Start: 09/29/21 11:26 Freq: Status: Active Protocol: Document 09/28/21 11:27 HH (Rec: 09/29/21 11:58 [email or web address]) Lumbar Spine Range of Motion Lumbar Spine Active Degrees Comments able to reach midshin, flat spine noted with flexion. No reproduction of symptoms on LEs with trunk related movements. Hip Goniometric Range of Motion Hip Right Active Hip ROM WFL Yes Straight Leg Raise 90 Left Active Hip ROM WFL Yes Straight Leg Raise 90 Knee Goniometric Range of Motion Knee Right Knee ROM WFL Yes Left Knee ROM WFL Yes Ankle and Foot Goniometric Range of Motion Ankle and Foot Right Active Testing Position Supine Dorsiflexion with Knee Flexed 8 Dorsiflexion with Knee Extended 0 Plantarflexion 46 Left Active Testing Position Supine Dorsiflexion with Knee Flexed 10 Dorsiflexion with Knee Extended 2 Plantarflexion 50 PT-OP-M Strength Start: 09/29/21 11:26 Freq: Status: Active Protocol: Document 09/28/21 11:27 HH (Rec: 09/29/21 11:58 HH [email or web address]) Hip Strength Hip Manual Muscle Testing Right Flexion (L2) 4 Good Extension (S1) 4 Good Abduction 4 Good Adduction 4 Good Left Flexion (L2) 4 Good Extension (S1) 4 Good Abduction 4 Good Adduction 4 Good Knee Strength Knee Manual Muscle Testing Right Flexion (S2) 4+ Good+ Extension (L3) 4+ Good+ Left Flexion (S2) 4+ Good+ Extension (L3) 4+ Good+ Ankle/Foot Strength Ankle and Foot Manual Muscle Testing Right Dorsiflexion (L4) 4+ Good+ Plantarflexion (S1) 4+ Good+ Inversion 4+ Good+ Eversion (S1) 4+ Good+ Left Dorsiflexion (L4) 4+ Good+ Plantarflexion (S1) 4+ Good+ Inversion 4+ Good+ Eversion (S1) 4+ Good+ Toe Strength Toe Manual Muscle Testing Right Great Toe Flexion 5 Normal Extension 5 Normal Left Great Toe Flexion 5 Normal Extension 5 Normal PT-OP-Q Treatments Start: 09/29/21 11:26 Freq: Status: Active Protocol: Document 10/13/21 12:00 AW (Rec: 10/13/21 12:08 AW [id number]) Cardio Equipment Recumbent Bicycle Duration (Minutes) 5 Resistance 4 Seat Position 3 Therapeutic Exercises Sidelying Exercises clam/reverse clam Sidelying Exercise Name clam and reverse Side bilateral Resistance AROM Reps/Minutes x20 Comments good indep performance with min cues for hips stacked. Standing Exercises hip abduction Standing Exercise Name hip abduction Side bilateral Resistance yellow loop @ ankles Reps/Minutes 10 reps x 2 Comments no knee irritation with band at ankles hip extension Standing Exercise Name hip extension Side bilateral Resistance yellow loop @ ankles Reps/Minutes 10 reps x 2 lateral band walk Standing Exercise Name lateral band walk Resistance yellow loop Reps/Minutes 10' lap x 3 Comments band above knees to reduce L knee irritation w/ band at ankles ankle PF Standing Exercise Name heel lifts Side bilateral Equipment Used 6 step Reps/Minutes x20 Comments focus on eccentric; pt reports tightness entire posterior chain calf stretch Standing Exercise Name gastroc Side bilateral Equipment Used [place] Reps/Minutes 20s x5 Comments no pinching today Other Exercises sit to stand Other Exercise Name sit <> stand Equipment Used std ht chair Reps/Minutes 10 x 2 Comments cues for fwd weight shift; added to HEP Manual Therapy Treatment Soft Tissue Mobilization anterior tib Body Location b ant tib Mobilization Type Myofascial Release Intensity/Depth Moderate Body Position Supine Comments reduced symptom reproduction with slightly more pressure today Joint Mobilizations fibular head Direction A/P Grade II Body Position Supine Self-Care/Home Management Treatment Education Patient Education Home Exercise Program Other Education Added sit <> stand for HEP PT-OP-T Assessment and Plan Start: 09/29/21 11:26 Freq: Status: Active Protocol: Document 10/13/21 12:00 AW (Rec: 10/13/21 12:15 AW [email or web address]) Physical Therapy Assessment Goals neuro sign Impairment consistent tingling/ numbness to lower legs Short Term Goal (STG) pt will report reduction in tingling/ numbness to lower legs by 50 % during the day. STG Duration 4weeks Caddy Packer Goal (LTG) pt will report reduction in tingling/ numbness to lower legs by 80 % during the day. LTG Duration 10 weeks ROM Impairment limited ankle DF and PF Short Term Goal (STG) pt will show improved ankle DF /PF by 5 degrees to improve her gait quality STG Duration 4 weeks Caddy Packer Goal (LTG) pt will show improved ankle DF /PF by 10 degrees to improve her gait quality (heel strike and push off) LTG Duration 8 weeks pain Impairment occasional radiating pain to lower leg Short Term Goal (STG) pt will c/o radiating pain to lower legs no more than 3x/wk STG Duration 4 weeks Residential Goal (LTG) pt will c/o radiating pain to lower legs no more than 1x/wk to improve her quality of life LTG Duration 8 weeks Assessment Summary Assessment Treatment focused on manual therapy for anterior compartment tone and ther ex for proximal strengthening. Will continue with strength program and assess goals at next visit. Physical Therapy Plan Frequency and Duration Frequency of Treatment 2x/Week Duration of Treatment 8 weeks Plan of Care Start Date 09/29/21 Plan of Care End Date 11/28/21 Therapeutic Interventions Therapeutic Interventions Balance Training,Gait Training ,Home Exercise Program,Joint Mobilizations,Manual Therapy, Neuromuscular Re-education, Orthotic/Prosthetic Management ,Patient/Caregiver Education, Self-Care/Home Management,Soft Tissue Mobilization,Taping, Therapeutic Activities, Therapeutic Exercises Modalities Cold Pack/Ice Massage,Electric Stimulation,Hot Packs, Infrared Therapy,Ultrasound Next Visit Focus/Plan Next Note Type Treatment Note Next Visit Plan ASSESS GOALS. MT for dorsiflexion ROM and possible self-mob. Proximal strengthening.
--- NOTE | 2021-10-20 12:07 | PT.OTN ---
Current Diagnoses Hereditary and idiopathic neuropathy, unspecified (10/20/21) Physical Therapy Treatment Note PT-OP-A Visit Information Start: 09/29/21 11:26 Freq: Status: Active Protocol: Document 10/20/21 12:00 AW (Rec: 10/20/21 12:06 AW [id number]) Out-Patient Physical Therapy Visit Information Visit Information Visit Type Treatment Note Visit Start Time 11:15 Visit Stop Time 12:00 Total Visit Minutes 45 Visit Number / Number of CYANIDE POT TENDER Visits 0 Evaluation Information Evaluation Date 09/29/21 Precautions Precautions osteopenia A-fib peripheral polyneauopathy. does not tolerate quadruped due to right knee pain PT-OP-B Current Condition Start: 09/29/21 11:26 Freq: Status: Active Protocol: Document 09/28/21 11:27 HH (Rec: 09/29/21 11:58 HH [email or web address]) Current Condition History of Current Condition Onset Date couple months ago Current Complaints bilateral tingling/numbness to lower leg R>L History of Current Condition Ellen is a 71yo here for her worsening peripheral polyneuropathy. Per EMr, there were present since 2017 which included tingling and numbness of the back side of lower legs, to vega area and big toe region. She stated her symptoms have progresed and feeling numbness and tightness over the top of feet and ankles, along with some shooting pain in the feet occasionally. She noticed the impairment sensation affects her balance slightly and wearing shoes with good arch support helps. Denies any loss of motor control and weakness . Prior Treatments and Tests EMG 07/24/2019 suggested sensory motor polyneuropathic process that is distal and symmetrical on LEs. not suggestive of L2 to S1 nerve lesion. slow conduction velocity on R peroneal nerve Dr. Verdin recommended massage techniques and exercises on her lower leg to promote blood flow Personal Factors Other Personal Factors That May Effect osteopenia Therapy/Recovery A-fib peripheral polyneauopathy. PT-OP-C Subjective Start: 09/29/21 11:26 Freq: Status: Active Protocol: Document 10/20/21 12:00 AW (Rec: 10/20/21 12:06 AW [id number]) OP-PT Subjective Patient Comments Patient Comments It's difficult to quantify the sensation disturbance but I think the stretches and other exercises are helpful. Pt wonders about efficacy of TENS for neuropathy Patient Reported Progress Same PT-OP-D Balance Start: 09/29/21 11:26 Freq: Status: Active Protocol: Document 09/28/21 11:27 HH (Rec: 09/29/21 11:58 [email or web address]) Balance Tests Single Limb Standing Single Limb- Right 43 Single Limb- Left 45 PT-OP-F Manual Assessment Start: 09/29/21 11:26 Freq: Status: Active Protocol: Document 09/28/21 11:27 HH (Rec: 09/29/21 11:58 [email or web address]) Manual Assessments Soft Tissue Assessment Soft Tissue Mobility Assessment significant toncity at bilateral anterior tibialis, reports of radiating tingling/ numbness sensation to top of R foot ( reviving the nerve as pt stated Joint Mobility Assessment Joint Mobility Assessment WFL PT-OP-G Mobility & Gait Start: 09/29/21 11:26 Freq: Status: Active Protocol: Document 09/28/21 11:27 HH (Rec: 09/29/21 11:58 [email or web address]) OP Gait Assessment Comments Gait Comments dec heel strike and feet clearance. dec toe push off. PT-OP-H Neuro Start: 09/29/21 11:26 Freq: Status: Active Protocol: Document 09/28/21 11:27 HH (Rec: 09/29/21 11:58 [email or web address]) Sensation Evaluation Gross Sensation Gross Sensation Left LE Impaired,Right LE Impaired Sensation Description Numbness,Tingling Comments Summary Comments dec sensation to light touch R >L (from lateral vega to medial arch and big toe) Deep Tendon Reflex & Clonus Assessment Deep Tendon Reflex Bilateral Achilles Deep Tendon Reflex 2+ Normal Bilateral Patellar Deep Tendon Reflex 2+ Normal PT-OP-K Range of Motion Start: 09/29/21 11:26 Freq: Status: Active Protocol: Document 09/28/21 11:27 HH (Rec: 09/29/21 11:58 [email or web address]) Lumbar Spine Range of Motion Lumbar Spine Active Degrees Comments able to reach midshin, flat spine noted with flexion. No reproduction of symptoms on LEs with trunk related movements. Hip Goniometric Range of Motion Hip Right Active Hip ROM WFL Yes Straight Leg Raise 90 Left Active Hip ROM WFL Yes Straight Leg Raise 90 Knee Goniometric Range of Motion Knee Right Knee ROM WFL Yes Left Knee ROM WFL Yes Ankle and Foot Goniometric Range of Motion Ankle and Foot Right Active Testing Position Supine Dorsiflexion with Knee Flexed 8 Dorsiflexion with Knee Extended 0 Plantarflexion 46 Left Active Testing Position Supine Dorsiflexion with Knee Flexed 10 Dorsiflexion with Knee Extended 2 Plantarflexion 50 PT-OP-M Strength Start: 09/29/21 11:26 Freq: Status: Active Protocol: Document 09/28/21 11:27 HH (Rec: 09/29/21 11:58 HH [email or web address]) Hip Strength Hip Manual Muscle Testing Right Flexion (L2) 4 Good Extension (S1) 4 Good Abduction 4 Good Adduction 4 Good Left Flexion (L2) 4 Good Extension (S1) 4 Good Abduction 4 Good Adduction 4 Good Knee Strength Knee Manual Muscle Testing Right Flexion (S2) 4+ Good+ Extension (L3) 4+ Good+ Left Flexion (S2) 4+ Good+ Extension (L3) 4+ Good+ Ankle/Foot Strength Ankle and Foot Manual Muscle Testing Right Dorsiflexion (L4) 4+ Good+ Plantarflexion (S1) 4+ Good+ Inversion 4+ Good+ Eversion (S1) 4+ Good+ Left Dorsiflexion (L4) 4+ Good+ Plantarflexion (S1) 4+ Good+ Inversion 4+ Good+ Eversion (S1) 4+ Good+ Toe Strength Toe Manual Muscle Testing Right Great Toe Flexion 5 Normal Extension 5 Normal Left Great Toe Flexion 5 Normal Extension 5 Normal PT-OP-Q Treatments Start: 09/29/21 11:26 Freq: Status: Active Protocol: Document 10/20/21 12:00 AW (Rec: 10/20/21 12:06 AW [id number]) Cardio Equipment Recumbent Bicycle Duration (Minutes) 5 Resistance 4 Seat Position 3 Therapeutic Exercises Sidelying Exercises clam/reverse clam Sidelying Exercise Name clam and reverse Side bilateral Resistance TB1 Reps/Minutes x20 Comments good indep performance with min cues for hips stacked. hip abduction Sidelying Exercise Name hip abduction Side bilateral Resistance AROM Reps/Minutes x20 Comments stable hips bilaterally Standing Exercises bosu step up Standing Exercise Name bosu step up Side bilateral Resistance alternating Equipment Used round side bosu Reps/Minutes 1 min march x 2 Other Exercises sit to stand Other Exercise Name sit <> stand Equipment Used std chair Reps/Minutes 10 x 2 Comments cues for fwd weight shift; added to HEP Manual Therapy Treatment Soft Tissue Mobilization anterior tib Body Location b ant tib Mobilization Type Myofascial Release Intensity/Depth Moderate Body Position Supine Comments reduced symptom reproduction with slightly more pressure today Joint Mobilizations fibular head Direction A/P Grade II Body Position Supine Neuro Re-Education Treatment Balance Activities NBOS Details NBOS on foam Reps/Duration 6 min Comments - EO - EC - EO with head turns Self-Care/Home Management Treatment Education Patient Education Home Exercise Program Other Education Added resisted clam/reverse clam for HEP. Plan to consolidate next visit. PT-OP-T Assessment and Plan Start: 09/29/21 11:26 Freq: Status: Active Protocol: Document 10/20/21 12:00 AW (Rec: 10/20/21 12:06 AW [id number]) Physical Therapy Assessment Goals neuro sign Impairment consistent tingling/ numbness to lower legs Short Term Goal (STG) pt will report reduction in tingling/ numbness to lower legs by 50 % during the day. STG Duration 4weeks Half-Way Goal (LTG) pt will report reduction in tingling/ numbness to lower legs by 80 % during the day. LTG Duration 10 weeks ROM Impairment limited ankle DF and PF Short Term Goal (STG) pt will show improved ankle DF /PF by 5 degrees to improve her gait quality STG Duration 4 weeks Wool Handler Goal (LTG) pt will show improved ankle DF /PF by 10 degrees to improve her gait quality (heel strike and push off) LTG Duration 8 weeks pain Impairment occasional radiating pain to lower leg Short Term Goal (STG) pt will c/o radiating pain to lower legs no more than 3x/wk STG Duration 4 weeks Half-Way Goal (LTG) pt will c/o radiating pain to lower legs no more than 1x/wk to improve her quality of life LTG Duration 8 weeks Assessment Summary Assessment Treatment focused on proximal strengthening and neuro re-ed for ankle stability. Pt reports stable symptoms but notes progression seems to have stopped and/or slightly reversed. Physical Therapy Plan Frequency and Duration Frequency of Treatment 2x/Week Duration of Treatment 8 weeks Plan of Care Start Date 09/29/21 Plan of Care End Date 11/28/21 Therapeutic Interventions Therapeutic Interventions Balance Training,Gait Training ,Home Exercise Program,Joint Mobilizations,Manual Therapy, Neuromuscular Re-education, Orthotic/Prosthetic Management ,Patient/Caregiver Education, Self-Care/Home Management,Soft Tissue Mobilization,Taping, Therapeutic Activities, Therapeutic Exercises Modalities Cold Pack/Ice Massage,Electric Stimulation,Hot Packs, Infrared Therapy,Ultrasound Next Visit Focus/Plan Next Note Type Treatment Note Next Visit Plan ASSESS GOALS. MT for dorsiflexion ROM and possible self-mob. Proximal strengthening.
--- NOTE | 2021-11-10 12:14 | PT.OTN ---
Current Diagnoses Hereditary and idiopathic neuropathy, unspecified (11/10/21) Physical Therapy Treatment Note PT-OP-A Visit Information Start: 09/29/21 11:26 Freq: Status: Active Protocol: Document 11/10/21 12:00 AW (Rec: 11/10/21 12:13 AW [id number]) Out-Patient Physical Therapy Visit Information Visit Information Visit Type Treatment Note Visit Start Time 11:19 Visit Stop Time 12:00 Total Visit Minutes 41 Visit Number 05/16 Number of OIL OPERATOR Visits 0 Evaluation Information Evaluation Date 09/29/21 Precautions Precautions osteopenia A-fib peripheral polyneauopathy. does not tolerate quadruped due to right knee pain PT-OP-B Current Condition Start: 09/29/21 11:26 Freq: Status: Active Protocol: Document 09/28/21 11:27 HH (Rec: 09/29/21 11:58 HH [email or web address]) Current Condition History of Current Condition Onset Date couple months ago Current Complaints bilateral tingling/numbness to lower leg R>L History of Current Condition Ellen is a 71yo here for her worsening peripheral polyneuropathy. Per EMr, there were present since 2017 which included tingling and numbness of the back side of lower legs, to vega area and big toe region. She stated her symptoms have progresed and feeling numbness and tightness over the top of feet and ankles, along with some shooting pain in the feet occasionally. She noticed the impairment sensation affects her balance slightly and wearing shoes with good arch support helps. Denies any loss of motor control and weakness . Prior Treatments and Tests EMG 07/24/2019 suggested sensory motor polyneuropathic process that is distal and symmetrical on LEs. not suggestive of L2 to S1 nerve lesion. slow conduction velocity on R peroneal nerve Dr. Verdin recommended massage techniques and exercises on her lower leg to promote blood flow Personal Factors Other Personal Factors That May Effect osteopenia Therapy/Recovery A-fib peripheral polyneauopathy. PT-OP-C Subjective Start: 09/29/21 11:26 Freq: Status: Active Protocol: Document 11/10/21 12:00 AW (Rec: 11/10/21 12:13 AW [id number]) OP-PT Subjective Patient Comments Patient Comments Pt confirms symptoms are not getting worse and are more focused distally. Her concerns about progression have been addressed. Patient Reported Progress Improving PT-OP-D Balance Start: 12/02/21 11:26 Freq: Status: Active Protocol: Document 09/28/21 11:27 HH (Rec: 09/29/21 11:58 [email or web address]) Balance Tests Single Limb Standing Single Limb- Right 43 Single Limb- Left 45 PT-OP-F Manual Assessment Start: 09/29/21 11:26 Freq: Status: Active Protocol: Document 09/28/21 11:27 HH (Rec: 09/29/21 11:58 [email or web address]) Manual Assessments Soft Tissue Assessment Soft Tissue Mobility Assessment significant toncity at bilateral anterior tibialis, reports of radiating tingling/ numbness sensation to top of R foot ( reviving the nerve as pt stated Joint Mobility Assessment Joint Mobility Assessment WFL PT-OP-G Mobility & Gait Start: 09/29/21 11:26 Freq: Status: Active Protocol: Document 09/28/21 11:27 HH (Rec: 09/29/21 11:58 [email or web address]) OP Gait Assessment Comments Gait Comments dec heel strike and feet clearance. dec toe push off. PT-OP-H Neuro Start: 09/29/21 11:26 Freq: Status: Active Protocol: Document 09/28/21 11:27 HH (Rec: 09/29/21 11:58 [email or web address]) Sensation Evaluation Gross Sensation Gross Sensation Left LE Impaired,Right LE Impaired Sensation Description Numbness,Tingling Comments Summary Comments dec sensation to light touch R >L (from lateral vega to medial arch and big toe) Deep Tendon Reflex & Clonus Assessment Deep Tendon Reflex Bilateral Achilles Deep Tendon Reflex 2+ Normal Bilateral Patellar Deep Tendon Reflex 2+ Normal PT-OP-K Range of Motion Start: 09/29/21 11:26 Freq: Status: Active Protocol: Document 09/28/21 11:27 HH (Rec: 09/29/21 11:58 [email or web address]) Lumbar Spine Range of Motion Lumbar Spine Active Degrees Comments able to reach midshin, flat spine noted with flexion. No reproduction of symptoms on LEs with trunk related movements. Hip Goniometric Range of Motion Hip Right Active Hip ROM WFL Yes Straight Leg Raise 90 Left Active Hip ROM WFL Yes Straight Leg Raise 90 Knee Goniometric Range of Motion Knee Right Knee ROM WFL Yes Left Knee ROM WFL Yes Ankle and Foot Goniometric Range of Motion Ankle and Foot Right Active Testing Position Supine Dorsiflexion with Knee Flexed 8 Dorsiflexion with Knee Extended 0 Plantarflexion 46 Left Active Testing Position Supine Dorsiflexion with Knee Flexed 10 Dorsiflexion with Knee Extended 2 Plantarflexion 50 PT-OP-M Strength Start: 09/29/21 11:26 Freq: Status: Active Protocol: Document 09/28/21 11:27 HH (Rec: 09/29/21 11:58 HH [email or web address]) Hip Strength Hip Manual Muscle Testing Right Flexion (L2) 4 Good Extension (S1) 4 Good Abduction 4 Good Adduction 4 Good Left Flexion (L2) 4 Good Extension (S1) 4 Good Abduction 4 Good Adduction 4 Good Knee Strength Knee Manual Muscle Testing Right Flexion (S2) 4+ Good+ Extension (L3) 4+ Good+ Left Flexion (S2) 4+ Good+ Extension (L3) 4+ Good+ Ankle/Foot Strength Ankle and Foot Manual Muscle Testing Right Dorsiflexion (L4) 4+ Good+ Plantarflexion (S1) 4+ Good+ Inversion 4+ Good+ Eversion (S1) 4+ Good+ Left Dorsiflexion (L4) 4+ Good+ Plantarflexion (S1) 4+ Good+ Inversion 4+ Good+ Eversion (S1) 4+ Good+ Toe Strength Toe Manual Muscle Testing Right Great Toe Flexion 5 Normal Extension 5 Normal Left Great Toe Flexion 5 Normal Extension 5 Normal PT-OP-Q Treatments Start: 09/29/21 11:26 Freq: Status: Active Protocol: Document 11/10/21 12:00 AW (Rec: 11/10/21 12:13 AW [id number]) Cardio Equipment Bicycle (Upright) Duration (Minutes) 5 Resistance 4 Therapeutic Exercises Sitting Exercises marble brick picker Sitting Exercise Name marble brick picker Side bilateral Comments pt lacks sensation awareness of brick picker arch lift Sitting Exercise Name arch lift Side bilateral Reps/Minutes 3SH x 10 Comments HEP Standing Exercises hip extension Standing Exercise Name hip extension Side bilateral Resistance red loop @ ankles Reps/Minutes 10 reps x 2 lateral band walk Standing Exercise Name lateral band walk Resistance red loop Reps/Minutes 10' lap x 3 Comments band above knees to reduce L knee irritation w/ band at ankles Manual Therapy Treatment Soft Tissue Mobilization anterior tib Body Location b ant tib Mobilization Type Myofascial Release Intensity/Depth Moderate Body Position Supine Comments Pt continues to tolerate increased pressure with fewer trigger points noted today Joint Mobilizations fibular head Direction A/P Grade II Body Position Supine Self-Care/Home Management Treatment Education Patient Education Home Exercise Program Other Education Added seated arch lift for HEP PT-OP-T Assessment and Plan Start: 09/29/21 11:26 Freq: Status: Active Protocol: Document 11/10/21 12:00 AW (Rec: 11/10/21 12:13 AW [id number]) Physical Therapy Assessment Goals neuro sign Impairment consistent tingling/ numbness to lower legs Short Term Goal (STG) pt will report reduction in tingling/ numbness to lower legs by 50 % during the day. 11/10/21 - PROGRESS Pt reports tingling sensation does not travel as far up the shank as before. STG Duration 4weeks Mcc Goal (LTG) pt will report reduction in tingling/ numbness to lower legs by 80 % during the day. LTG Duration 10 weeks ROM Impairment limited ankle DF and PF Short Term Goal (STG) pt will show improved ankle DF /PF by 5 degrees to improve her gait quality 11/10/21 DF to neutral bilaterally AROM STG Duration 4 weeks Mcc Goal (LTG) pt will show improved ankle DF /PF by 10 degrees to improve her gait quality (heel strike and push off) LTG Duration 8 weeks pain Impairment occasional radiating pain to lower leg Short Term Goal (STG) pt will c/o radiating pain to lower legs no more than 3x/wk STG Duration 4 weeks Calliope Player Goal (LTG) pt will c/o radiating pain to lower legs no more than 1x/wk to improve her quality of life LTG Duration 8 weeks Assessment Summary Assessment Pt complains of reduced sensation most notably in distal feet bilaterally (R more affected). Introduced foot intrinsic exercises today and gave arch lift for HEP. Physical Therapy Plan Frequency and Duration Frequency of Treatment 2x/Week Duration of Treatment 8 weeks Plan of Care Start Date 09/29/21 Plan of Care End Date 11/28/21 Therapeutic Interventions Therapeutic Interventions Balance Training,Gait Training ,Home Exercise Program,Joint Mobilizations,Manual Therapy, Neuromuscular Re-education, Orthotic/Prosthetic Management ,Patient/Caregiver Education, Self-Care/Home Management,Soft Tissue Mobilization,Taping, Therapeutic Activities, Therapeutic Exercises Modalities Cold Pack/Ice Massage,Electric Stimulation,Hot Packs, Infrared Therapy,Ultrasound Next Visit Focus/Plan Next Note Type Treatment Note Next Visit Plan Assess response to foot intrinsic HEP. MT for dorsiflexion ROM and possible self-mob. Proximal strengthening.
--- NOTE | 2021-11-15 12:09 | PT.OTN ---
Current Diagnoses Hereditary and idiopathic neuropathy, unspecified (11/15/21) Physical Therapy Treatment Note PT-OP-A Visit Information Start: 09/29/21 11:26 Freq: Status: Active Protocol: Document 11/15/21 12:00 AW (Rec: 11/15/21 12:09 AW [id number]) Out-Patient Physical Therapy Visit Information Visit Information Visit Type Treatment Note Visit Start Time 11:17 Visit Stop Time 12:00 Total Visit Minutes 43 Visit Number 8/ Number of EXHAUST EQUIPMENT OPERATOR Visits 0 Evaluation Information Evaluation Date 09/29/21 Precautions Precautions osteopenia A-fib peripheral polyneauopathy. does not tolerate quadruped due to right knee pain PT-OP-B Current Condition Start: 09/29/21 11:26 Freq: Status: Active Protocol: Document 09/28/21 11:27 HH (Rec: 09/29/21 11:58 HH [email or web address]) Current Condition History of Current Condition Onset Date couple months ago Current Complaints bilateral tingling/numbness to lower leg R>L History of Current Condition Ellen is a 71yo here for her worsening peripheral polyneuropathy. Per EMr, there were present since 2017 which included tingling and numbness of the back side of lower legs, to vega area and big toe region. She stated her symptoms have progresed and feeling numbness and tightness over the top of feet and ankles, along with some shooting pain in the feet occasionally. She noticed the impairment sensation affects her balance slightly and wearing shoes with good arch support helps. Denies any loss of motor control and weakness . Prior Treatments and Tests EMG 07/24/2019 suggested sensory motor polyneuropathic process that is distal and symmetrical on LEs. not suggestive of L2 to S1 nerve lesion. slow conduction velocity on R peroneal nerve Dr. Verdin recommended massage techniques and exercises on her lower leg to promote blood flow Personal Factors Other Personal Factors That May Effect osteopenia Therapy/Recovery A-fib peripheral polyneauopathy. PT-OP-C Subjective Start: 09/29/21 11:26 Freq: Status: Active Protocol: Document 11/15/21 12:00 AW (Rec: 11/15/21 12:09 AW [id number]) OP-PT Subjective Patient Comments Patient Comments No new complaints. Symptoms are stable. PT-OP-D Balance Start: 09/29/21 11:26 Freq: Status: Active Protocol: Document 09/28/21 11:27 HH (Rec: 09/29/21 11:58 [email or web address]) Balance Tests Single Limb Standing Single Limb- Right 43 Single Limb- Left 45 PT-OP-F Manual Assessment Start: 09/29/21 11:26 Freq: Status: Active Protocol: Document 09/28/21 11:27 HH (Rec: 09/29/21 11:58 [email or web address]) Manual Assessments Soft Tissue Assessment Soft Tissue Mobility Assessment significant toncity at bilateral anterior tibialis, reports of radiating tingling/ numbness sensation to top of R foot ( reviving the nerve as pt stated Joint Mobility Assessment Joint Mobility Assessment WFL PT-OP-G Mobility & Gait Start: 09/29/21 11:26 Freq: Status: Active Protocol: Document 09/28/21 11:27 HH (Rec: 09/29/21 11:58 [email or web address]) OP Gait Assessment Comments Gait Comments dec heel strike and feet clearance. dec toe push off. PT-OP-H Neuro Start: 09/29/21 11:26 Freq: Status: Active Protocol: Document 09/28/21 11:27 HH (Rec: 09/29/21 11:58 [email or web address]) Sensation Evaluation Gross Sensation Gross Sensation Left LE Impaired,Right LE Impaired Sensation Description Numbness,Tingling Comments Summary Comments dec sensation to light touch R >L (from lateral vega to medial arch and big toe) Deep Tendon Reflex & Clonus Assessment Deep Tendon Reflex Bilateral Achilles Deep Tendon Reflex 2+ Normal Bilateral Patellar Deep Tendon Reflex 2+ Normal PT-OP-K Range of Motion Start: 09/29/21 11:26 Freq: Status: Active Protocol: Document 09/28/21 11:27 HH (Rec: 09/29/21 11:58 [email or web address]) Lumbar Spine Range of Motion Lumbar Spine Active Degrees Comments able to reach midshin, flat spine noted with flexion. No reproduction of symptoms on LEs with trunk related movements. Hip Goniometric Range of Motion Hip Right Active Hip ROM WFL Yes Straight Leg Raise 90 Left Active Hip ROM WFL Yes Straight Leg Raise 90 Knee Goniometric Range of Motion Knee Right Knee ROM WFL Yes Left Knee ROM WFL Yes Ankle and Foot Goniometric Range of Motion Ankle and Foot Right Active Testing Position Supine Dorsiflexion with Knee Flexed 8 Dorsiflexion with Knee Extended 0 Plantarflexion 46 Left Active Testing Position Supine Dorsiflexion with Knee Flexed 10 Dorsiflexion with Knee Extended 2 Plantarflexion 50 PT-OP-M Strength Start: 09/29/21 11:26 Freq: Status: Active Protocol: Document 09/28/21 11:27 HH (Rec: 09/29/21 11:58 HH [email or web address]) Hip Strength Hip Manual Muscle Testing Right Flexion (L2) 4 Good Extension (S1) 4 Good Abduction 4 Good Adduction 4 Good Left Flexion (L2) 4 Good Extension (S1) 4 Good Abduction 4 Good Adduction 4 Good Knee Strength Knee Manual Muscle Testing Right Flexion (S2) 4+ Good+ Extension (L3) 4+ Good+ Left Flexion (S2) 4+ Good+ Extension (L3) 4+ Good+ Ankle/Foot Strength Ankle and Foot Manual Muscle Testing Right Dorsiflexion (L4) 4+ Good+ Plantarflexion (S1) 4+ Good+ Inversion 4+ Good+ Eversion (S1) 4+ Good+ Left Dorsiflexion (L4) 4+ Good+ Plantarflexion (S1) 4+ Good+ Inversion 4+ Good+ Eversion (S1) 4+ Good+ Toe Strength Toe Manual Muscle Testing Right Great Toe Flexion 5 Normal Extension 5 Normal Left Great Toe Flexion 5 Normal Extension 5 Normal PT-OP-Q Treatments Start: 09/29/21 11:26 Freq: Status: Active Protocol: Document 11/15/21 12:00 AW (Rec: 11/15/21 12:09 AW [id number]) Cardio Equipment Recumbent Bicycle Duration (Minutes) 5 Resistance 4 Seat Position 3 Gym Equipment Shuttle Balance red Details NBOS EO Reps/Duration 5 min Comments Started with red chains but too challenging. Switched to blue. Pt able to perform NBOS CGA. Added head turns Therapeutic Exercises Sidelying Exercises ankle EV/IV Sidelying Exercise Name ankle EV/IV Side bilateral Resistance 2# ankle wt Reps/Minutes 2x15 Sitting Exercises arch lift Sitting Exercise Name arch lift - standing today Side bilateral Reps/Minutes 3SH x 10 Comments HEP review Manual Therapy Treatment Soft Tissue Mobilization anterior tib Body Location b ant tib Mobilization Type Myofascial Release Intensity/Depth Moderate Body Position Supine Comments Pt continues to tolerate increased pressure with fewer trigger points noted today Joint Mobilizations fibular head Direction A/P Grade II Body Position Supine PT-OP-T Assessment and Plan Start: 09/29/21 11:26 Freq: Status: Active Protocol: Document 11/15/21 12:00 AW (Rec: 11/15/21 12:09 AW [id number]) Physical Therapy Assessment Goals neuro sign Impairment consistent tingling/ numbness to lower legs Short Term Goal (STG) pt will report reduction in tingling/ numbness to lower legs by 50 % during the day. 11/10/21 - PROGRESS Pt reports tingling sensation does not travel as far up the shank as before. STG Duration 4weeks Assisted Goal (LTG) pt will report reduction in tingling/ numbness to lower legs by 80 % during the day. LTG Duration 10 weeks ROM Impairment limited ankle DF and PF Short Term Goal (STG) pt will show improved ankle DF /PF by 5 degrees to improve her gait quality 11/10/21 DF to neutral bilaterally AROM STG Duration 4 weeks Visitor Information Assistant Goal (LTG) pt will show improved ankle DF /PF by 10 degrees to improve her gait quality (heel strike and push off) LTG Duration 8 weeks pain Impairment occasional radiating pain to lower leg Short Term Goal (STG) pt will c/o radiating pain to lower legs no more than 3x/wk STG Duration 4 weeks Visitor Information Assistant Goal (LTG) pt will c/o radiating pain to lower legs no more than 1x/wk to improve her quality of life 11/15/21 - GOAL MET Pt denies shooting pain since soon after starting therapy. LTG Duration 8 weeks Assessment Summary Assessment Focused on manual therapy for anterior tibialis and fibularis tone and ther ex to improve strength and blood flow BLE. Pt has made good gains but may be plateauing. Will likely be ready for discharge after another visit or two. Physical Therapy Plan Frequency and Duration Frequency of Treatment 2x/Week Duration of Treatment 8 weeks Plan of Care Start Date 09/29/21 Plan of Care End Date 11/28/21 Therapeutic Interventions Therapeutic Interventions Balance Training,Gait Training ,Home Exercise Program,Joint Mobilizations,Manual Therapy, Neuromuscular Re-education, Orthotic/Prosthetic Management ,Patient/Caregiver Education, Self-Care/Home Management,Soft Tissue Mobilization,Taping, Therapeutic Activities, Therapeutic Exercises Modalities Cold Pack/Ice Massage,Electric Stimulation,Hot Packs, Infrared Therapy,Ultrasound Next Visit Focus/Plan Next Note Type Treatment Note Next Visit Plan MT for dorsiflexion ROM and possible self-mob. Proximal strengthening. Progress balance work for ankle stimulation
--- NOTE | 2021-11-22 13:48 | PT.OTN ---
Current Diagnoses Hereditary and idiopathic neuropathy, unspecified (11/22/21) Physical Therapy Treatment Note PT-OP-A Visit Information Start: 09/29/21 11:26 Freq: Status: Active Protocol: Document 11/22/21 13:45 AW (Rec: 11/22/21 13:47 AW [id number]) Out-Patient Physical Therapy Visit Information Visit Information Visit Type Treatment Note Visit Start Time 13:00 Visit Stop Time 13:45 Total Visit Minutes 45 Visit Number 07/17 Number of WEB MACHINE TENDER Visits 0 Evaluation Information Evaluation Date 09/29/21 Precautions Precautions osteopenia A-fib peripheral polyneauopathy. does not tolerate quadruped due to right knee pain PT-OP-B Current Condition Start: 09/29/21 11:26 Freq: Status: Active Protocol: Document 09/28/21 11:27 HH (Rec: 09/29/21 11:58 HH [email or web address]) Current Condition History of Current Condition Onset Date couple months ago Current Complaints bilateral tingling/numbness to lower leg R>L History of Current Condition Ellen is a 71yo here for her worsening peripheral polyneuropathy. Per EMr, there were present since 2017 which included tingling and numbness of the back side of lower legs, to vega area and big toe region. She stated her symptoms have progresed and feeling numbness and tightness over the top of feet and ankles, along with some shooting pain in the feet occasionally. She noticed the impairment sensation affects her balance slightly and wearing shoes with good arch support helps. Denies any loss of motor control and weakness . Prior Treatments and Tests EMG 07/24/2019 suggested sensory motor polyneuropathic process that is distal and symmetrical on LEs. not suggestive of L2 to S1 nerve lesion. slow conduction velocity on R peroneal nerve Dr. Verdin recommended massage techniques and exercises on her lower leg to promote blood flow Personal Factors Other Personal Factors That May Effect osteopenia Therapy/Recovery A-fib peripheral polyneauopathy. PT-OP-C Subjective Start: 09/29/21 11:26 Freq: Status: Active Protocol: Document 11/22/21 13:45 AW (Rec: 11/22/21 13:47 AW [id number]) OP-PT Subjective Patient Comments Patient Comments Pt reports mild right knee pain today but does not limit her participation. PT-OP-D Balance Start: 09/29/21 11:26 Freq: Status: Active Protocol: Document 09/28/21 11:27 HH (Rec: 09/29/21 11:58 [email or web address]) Balance Tests Single Limb Standing Single Limb- Right 43 Single Limb- Left 45 PT-OP-F Manual Assessment Start: 09/29/21 11:26 Freq: Status: Active Protocol: Document 09/28/21 11:27 HH (Rec: 09/29/21 11:58 [email or web address]) Manual Assessments Soft Tissue Assessment Soft Tissue Mobility Assessment significant toncity at bilateral anterior tibialis, reports of radiating tingling/ numbness sensation to top of R foot ( reviving the nerve as pt stated Joint Mobility Assessment Joint Mobility Assessment WFL PT-OP-G Mobility & Gait Start: 09/29/21 11:26 Freq: Status: Active Protocol: Document 09/28/21 11:27 HH (Rec: 09/29/21 11:58 [email or web address]) OP Gait Assessment Comments Gait Comments dec heel strike and feet clearance. dec toe push off. PT-OP-H Neuro Start: 09/29/21 11:26 Freq: Status: Active Protocol: Document 09/28/21 11:27 HH (Rec: 09/29/21 11:58 [email or web address]) Sensation Evaluation Gross Sensation Gross Sensation Left LE Impaired,Right LE Impaired Sensation Description Numbness,Tingling Comments Summary Comments dec sensation to light touch R >L (from lateral vega to medial arch and big toe) Deep Tendon Reflex & Clonus Assessment Deep Tendon Reflex Bilateral Achilles Deep Tendon Reflex 2+ Normal Bilateral Patellar Deep Tendon Reflex 2+ Normal PT-OP-K Range of Motion Start: 09/29/21 11:26 Freq: Status: Active Protocol: Document 09/28/21 11:27 HH (Rec: 09/29/21 11:58 [email or web address]) Lumbar Spine Range of Motion Lumbar Spine Active Degrees Comments able to reach midshin, flat spine noted with flexion. No reproduction of symptoms on LEs with trunk related movements. Hip Goniometric Range of Motion Hip Right Active Hip ROM WFL Yes Straight Leg Raise 90 Left Active Hip ROM WFL Yes Straight Leg Raise 90 Knee Goniometric Range of Motion Knee Right Knee ROM WFL Yes Left Knee ROM WFL Yes Ankle and Foot Goniometric Range of Motion Ankle and Foot Right Active Testing Position Supine Dorsiflexion with Knee Flexed 8 Dorsiflexion with Knee Extended 0 Plantarflexion 46 Left Active Testing Position Supine Dorsiflexion with Knee Flexed 10 Dorsiflexion with Knee Extended 2 Plantarflexion 50 PT-OP-M Strength Start: 09/29/21 11:26 Freq: Status: Active Protocol: Document 09/28/21 11:27 HH (Rec: 09/29/21 11:58 HH [email or web address]) Hip Strength Hip Manual Muscle Testing Right Flexion (L2) 4 Good Extension (S1) 4 Good Abduction 4 Good Adduction 4 Good Left Flexion (L2) 4 Good Extension (S1) 4 Good Abduction 4 Good Adduction 4 Good Knee Strength Knee Manual Muscle Testing Right Flexion (S2) 4+ Good+ Extension (L3) 4+ Good+ Left Flexion (S2) 4+ Good+ Extension (L3) 4+ Good+ Ankle/Foot Strength Ankle and Foot Manual Muscle Testing Right Dorsiflexion (L4) 4+ Good+ Plantarflexion (S1) 4+ Good+ Inversion 4+ Good+ Eversion (S1) 4+ Good+ Left Dorsiflexion (L4) 4+ Good+ Plantarflexion (S1) 4+ Good+ Inversion 4+ Good+ Eversion (S1) 4+ Good+ Toe Strength Toe Manual Muscle Testing Right Great Toe Flexion 5 Normal Extension 5 Normal Left Great Toe Flexion 5 Normal Extension 5 Normal PT-OP-Q Treatments Start: 09/29/21 11:26 Freq: Status: Active Protocol: Document 11/22/21 13:45 AW (Rec: 11/22/21 13:47 AW [id number]) Cardio Equipment Recumbent Bicycle Duration (Minutes) 5 Resistance 4 Seat Position 3 Gym Equipment Shuttle Balance red Details NBOS EO EC Reps/Duration 5 min Comments Blue chains with WBOS and NBOS SBA today. Added EC and head turns/nods for increased challange Therapeutic Exercises Sidelying Exercises ankle EV/IV Sidelying Exercise Name ankle EV/IV Side bilateral Resistance 2# ankle wt Reps/Minutes 2x15 Standing Exercises heel lift to mini squat Standing Exercise Name heel lift to mini squat Side bilateral Reps/Minutes x15 Comments good awareness of neutral, stable spine; HEP SL stance Standing Exercise Name SL stance Side bilateral Comments focus on weight distribution on foot tripod Manual Therapy Treatment Soft Tissue Mobilization anterior tib Body Location b ant tib Mobilization Type Instrument Assisted,Myofascial Release Intensity/Depth Moderate Body Position Supine Comments Used stainless steel LEEF tool today to promote blood flow in anterior tib distribution Joint Mobilizations fibular head Direction A/P Grade II Body Position Supine Self-Care/Home Management Treatment Education Patient Education Home Exercise Program PT-OP-T Assessment and Plan Start: 09/29/21 11:26 Freq: Status: Active Protocol: Document 11/22/21 13:45 AW (Rec: 11/22/21 13:47 AW [id number]) Physical Therapy Assessment Goals neuro sign Impairment consistent tingling/ numbness to lower legs Short Term Goal (STG) pt will report reduction in tingling/ numbness to lower legs by 50 % during the day. 11/10/21 - PROGRESS Pt reports tingling sensation does not travel as far up the shank as before. STG Duration 4weeks [facility] Goal (LTG) pt will report reduction in tingling/ numbness to lower legs by 80 % during the day. LTG Duration 10 weeks ROM Impairment limited ankle DF and PF Short Term Goal (STG) pt will show improved ankle DF /PF by 5 degrees to improve her gait quality 11/10/21 DF to neutral bilaterally AROM STG Duration 4 weeks [facility] Goal (LTG) pt will show improved ankle DF /PF by 10 degrees to improve her gait quality (heel strike and push off) LTG Duration 8 weeks pain Impairment occasional radiating pain to lower leg Short Term Goal (STG) pt will c/o radiating pain to lower legs no more than 3x/wk STG Duration 4 weeks Instructional Developer Goal (LTG) pt will c/o radiating pain to lower legs no more than 1x/wk to improve her quality of life 11/15/21 - GOAL MET Pt denies shooting pain since soon after starting therapy. LTG Duration 8 weeks Assessment Summary Assessment Progressed stability and balance work for ankle control and to increase blood flow to neural structures. Pt tolerated well. Plan discharge next visit. Physical Therapy Plan Frequency and Duration Frequency of Treatment 2x/Week Duration of Treatment 8 weeks Plan of Care Start Date 09/29/21 Plan of Care End Date 11/28/21 Therapeutic Interventions Therapeutic Interventions Balance Training,Gait Training ,Home Exercise Program,Joint Mobilizations,Manual Therapy, Neuromuscular Re-education, Orthotic/Prosthetic Management ,Patient/Caregiver Education, Self-Care/Home Management,Soft Tissue Mobilization,Taping, Therapeutic Activities, Therapeutic Exercises Modalities Cold Pack/Ice Massage,Electric Stimulation,Hot Packs, Infrared Therapy,Ultrasound Next Visit Focus/Plan Next Note Type Treatment Note Next Visit Plan MT for dorsiflexion ROM and possible self-mob. Proximal strengthening. Progress balance work for ankle stimulation
--- NOTE | 2021-12-01 12:12 | PT.OTN ---
Current Diagnoses Hereditary and idiopathic neuropathy, unspecified (12/01/21) Physical Therapy Treatment Note PT-OP-A Visit Information Start: 09/29/21 11:26 Freq: Status: Active Protocol: Document 12/01/21 11:19 AW (Rec: 12/01/21 12:12 AW [id number]) Out-Patient Physical Therapy Visit Information Visit Information Visit Type Discharge Summary Visit Start Time 11:19 Visit Stop Time 12:00 Total Visit Minutes 41 Visit Number 08/16 Number of HARVESTING CONTRACTOR Visits 0 Evaluation Information Evaluation Date 09/29/21 Precautions Precautions osteopenia A-fib peripheral polyneauopathy. does not tolerate quadruped due to right knee pain PT-OP-B Current Condition Start: 09/29/21 11:26 Freq: Status: Active Protocol: Document 09/28/21 11:27 HH (Rec: 09/29/21 11:58 HH [email or web address]) Current Condition History of Current Condition Onset Date couple months ago Current Complaints bilateral tingling/numbness to lower leg R>L History of Current Condition Ellen is a 71yo here for her worsening peripheral polyneuropathy. Per EMr, there were present since 2017 which included tingling and numbness of the back side of lower legs, to vega area and big toe region. She stated her symptoms have progresed and feeling numbness and tightness over the top of feet and ankles, along with some shooting pain in the feet occasionally. She noticed the impairment sensation affects her balance slightly and wearing shoes with good arch support helps. Denies any loss of motor control and weakness . Prior Treatments and Tests EMG 07/24/2019 suggested sensory motor polyneuropathic process that is distal and symmetrical on LEs. not suggestive of L2 to S1 nerve lesion. slow conduction velocity on R peroneal nerve Dr. Verdin recommended massage techniques and exercises on her lower leg to promote blood flow Personal Factors Other Personal Factors That May Effect osteopenia Therapy/Recovery A-fib peripheral polyneauopathy. PT-OP-C Subjective Start: 09/29/21 11:26 Freq: Status: Active Protocol: Document 12/01/21 11:19 AW (Rec: 12/01/21 12:12 AW [id number]) OP-PT Subjective Patient Comments Patient Comments Right knee pain comes and goes but doesn't keep me from doing what she wants right now . PT-OP-D Balance Start: 09/29/21 11:26 Freq: Status: Active Protocol: Document 09/28/21 11:27 HH (Rec: 09/29/21 11:58 [email or web address]) Balance Tests Single Limb Standing Single Limb- Right 43 Single Limb- Left 45 PT-OP-F Manual Assessment Start: 09/29/21 11:26 Freq: Status: Active Protocol: Document 09/28/21 11:27 HH (Rec: 09/29/21 11:58 [email or web address]) Manual Assessments Soft Tissue Assessment Soft Tissue Mobility Assessment significant toncity at bilateral anterior tibialis, reports of radiating tingling/ numbness sensation to top of R foot ( reviving the nerve as pt stated Joint Mobility Assessment Joint Mobility Assessment WFL PT-OP-G Mobility & Gait Start: 09/29/21 11:26 Freq: Status: Active Protocol: Document 09/28/21 11:27 HH (Rec: 09/29/21 11:58 [email or web address]) OP Gait Assessment Comments Gait Comments dec heel strike and feet clearance. dec toe push off. PT-OP-H Neuro Start: 09/29/21 11:26 Freq: Status: Active Protocol: Document 09/28/21 11:27 HH (Rec: 09/29/21 11:58 [email or web address]) Sensation Evaluation Gross Sensation Gross Sensation Left LE Impaired,Right LE Impaired Sensation Description Numbness,Tingling Comments Summary Comments dec sensation to light touch R >L (from lateral vega to medial arch and big toe) Deep Tendon Reflex & Clonus Assessment Deep Tendon Reflex Bilateral Achilles Deep Tendon Reflex 2+ Normal Bilateral Patellar Deep Tendon Reflex 2+ Normal PT-OP-K Range of Motion Start: 09/29/21 11:26 Freq: Status: Active Protocol: Document 09/28/21 11:27 HH (Rec: 09/29/21 11:58 [email or web address]) Lumbar Spine Range of Motion Lumbar Spine Active Degrees Comments able to reach midshin, flat spine noted with flexion. No reproduction of symptoms on LEs with trunk related movements. Hip Goniometric Range of Motion Hip Right Active Hip ROM WFL Yes Straight Leg Raise 90 Left Active Hip ROM WFL Yes Straight Leg Raise 90 Knee Goniometric Range of Motion Knee Right Knee ROM WFL Yes Left Knee ROM WFL Yes Ankle and Foot Goniometric Range of Motion Ankle and Foot Right Active Testing Position Supine Dorsiflexion with Knee Flexed 8 Dorsiflexion with Knee Extended 0 Plantarflexion 46 Left Active Testing Position Supine Dorsiflexion with Knee Flexed 10 Dorsiflexion with Knee Extended 2 Plantarflexion 50 PT-OP-M Strength Start: 09/29/21 11:26 Freq: Status: Active Protocol: Document 09/28/21 11:27 HH (Rec: 09/29/21 11:58 HH [email or web address]) Hip Strength Hip Manual Muscle Testing Right Flexion (L2) 4 Good Extension (S1) 4 Good Abduction 4 Good Adduction 4 Good Left Flexion (L2) 4 Good Extension (S1) 4 Good Abduction 4 Good Adduction 4 Good Knee Strength Knee Manual Muscle Testing Right Flexion (S2) 4+ Good+ Extension (L3) 4+ Good+ Left Flexion (S2) 4+ Good+ Extension (L3) 4+ Good+ Ankle/Foot Strength Ankle and Foot Manual Muscle Testing Right Dorsiflexion (L4) 4+ Good+ Plantarflexion (S1) 4+ Good+ Inversion 4+ Good+ Eversion (S1) 4+ Good+ Left Dorsiflexion (L4) 4+ Good+ Plantarflexion (S1) 4+ Good+ Inversion 4+ Good+ Eversion (S1) 4+ Good+ Toe Strength Toe Manual Muscle Testing Right Great Toe Flexion 5 Normal Extension 5 Normal Left Great Toe Flexion 5 Normal Extension 5 Normal PT-OP-Q Treatments Start: 09/29/21 11:26 Freq: Status: Active Protocol: Document 12/01/21 11:19 AW (Rec: 12/01/21 12:12 AW [id number]) Cardio Equipment Recumbent Bicycle Duration (Minutes) 5 Resistance 4 Seat Position 3 Therapeutic Exercises Sitting Exercises marble garbage pick up man Sitting Exercise Name marble garbage pick up man Side bilateral Comments Improved toe flexion and proprioception arch lift Sitting Exercise Name arch lift - standing today Side bilateral Reps/Minutes 3SH x 10 Comments improved awareness of foot posture Standing Exercises heel lift to mini squat Standing Exercise Name heel lift to mini squat Side bilateral Reps/Minutes x15 Comments good awareness of neutral, stable spine; HEP SL stance Standing Exercise Name SL stance Side bilateral Resistance firm, foam Comments focus on weight distribution on foot tripod lateral band walk Standing Exercise Name lateral band walk Resistance TB3 Reps/Minutes 10' lap x 3 Comments band above knees to reduce L knee irritation w/ band at ankles Manual Therapy Treatment Soft Tissue Mobilization anterior tib Body Location b ant tib and peroneals Mobilization Type Myofascial Release Intensity/Depth Moderate Body Position Supine Comments Extra time spent educating pt on self-mobilization. Joint Mobilizations fibular head Direction A/P Grade II Body Position Supine Self-Care/Home Management Treatment Education Patient Education Home Exercise Program PT-OP-T Assessment and Plan Start: 09/29/21 11:26 Freq: Status: Active Protocol: Document 12/01/21 11:19 AW (Rec: 12/01/21 12:12 AW [id number]) Physical Therapy Assessment Goals neuro sign Impairment consistent tingling/ numbness to lower legs Short Term Goal (STG) pt will report reduction in tingling/ numbness to lower legs by 50 % during the day. 11/10/21 - PROGRESS Pt reports tingling sensation does not travel as far up the shank as before. STG Duration 4weeks Hospital Cleaning Specialist Goal (LTG) pt will report reduction in tingling/ numbness to lower legs by 80 % during the day. 12/01/21 - PROGRESS Pt reports tingling sensation does not travel as far up the shank as before. LTG Duration 10 weeks ROM Impairment limited ankle DF and PF Short Term Goal (STG) pt will show improved ankle DF /PF by 5 degrees to improve her gait quality 11/10/21 DF to neutral bilaterally AROM STG Duration 4 weeks Hospital Cleaning Specialist Goal (LTG) pt will show improved ankle DF /PF by 10 degrees to improve her gait quality (heel strike and push off) 12/01/21 - Improved to ~8 deg active DF LTG Duration 8 weeks pain Impairment occasional radiating pain to lower leg Short Term Goal (STG) pt will c/o radiating pain to lower legs no more than 3x/wk STG Duration 4 weeks Intermediate Goal (LTG) pt will c/o radiating pain to lower legs no more than 1x/wk to improve her quality of life 11/15/21 - GOAL MET Pt denies shooting pain since soon after starting therapy. LTG Duration 8 weeks Assessment Summary Assessment Educated pt extensively on path of affected nerve and self-STM for anterior tibialis and peroneals. Pt is independent with HEP and motivated to continue. She is ready to discharge. Physical Therapy Plan Frequency and Duration Frequency of Treatment 1x/Week Duration of Treatment 8 weeks Plan of Care Start Date 11/28/21 Plan of Care End Date 12/16/21 Therapeutic Interventions Therapeutic Interventions Balance Training,Gait Training ,Home Exercise Program,Joint Mobilizations,Manual Therapy, Neuromuscular Re-education, Orthotic/Prosthetic Management ,Patient/Caregiver Education, Self-Care/Home Management,Soft Tissue Mobilization,Taping, Therapeutic Activities, Therapeutic Exercises Modalities Cold Pack/Ice Massage,Electric Stimulation,Hot Packs, Infrared Therapy,Ultrasound Discharge Physical Therapy Discharge Reasons Goals Met Discharge Comments Pt has met or progressed sufficiently toward all goals. She feels she has good understanding of the anatomy and physiology and is confident in the tools she has learned to control the progression of her neuropathy. She is appropriate for discharge at this time.
--- NOTE | 2021-12-01 12:13 | PT.OPPOC ---
Physical, Occupational & Speech Therapy At [facility] Current Diagnoses Hereditary and idiopathic neuropathy, unspecified (12/01/21) Visit Care Team Role Provider Type Dunia Galvez DO Primary Care Provider Physician Specialty: Family Practice Address: [address] [place] [address], [facility] [address], [address] Email: [email or web address] Howard Alfred MD Family Provider Non-Staff Specialty: Cardiology Address: [address] [place] [address], [address] Email: Ronel Verdin MD Attending Provider Non-Staff Referring Provider Specialty: Neurology Address: [address] [place], [address] Email: Plan Of Care PT-OP-T Assessment and Plan Start: 09/29/21 11:26 Freq: Status: Active Protocol: Document 12/01/21 11:19 AW (Rec: 12/01/21 12:12 AW [id number]) Physical Therapy Assessment Goals neuro sign Impairment consistent tingling/ numbness to lower legs Short Term Goal (STG) pt will report reduction in tingling/ numbness to lower legs by 50 % during the day. 11/10/21 - PROGRESS Pt reports tingling sensation does not travel as far up the shank as before. STG Duration 4weeks Artillery Officer Goal (LTG) pt will report reduction in tingling/ numbness to lower legs by 80 % during the day. 12/01/21 - PROGRESS Pt reports tingling sensation does not travel as far up the shank as before. LTG Duration 10 weeks ROM Impairment limited ankle DF and PF Short Term Goal (STG) pt will show improved ankle DF /PF by 5 degrees to improve her gait quality 11/10/21 DF to neutral bilaterally AROM STG Duration 4 weeks Mcfp Goal (LTG) pt will show improved ankle DF /PF by 10 degrees to improve her gait quality (heel strike and push off) 12/01/21 - Improved to ~8 deg active DF LTG Duration 8 weeks pain Impairment occasional radiating pain to lower leg Short Term Goal (STG) pt will c/o radiating pain to lower legs no more than 3x/wk STG Duration 4 weeks Mcfp Goal (LTG) pt will c/o radiating pain to lower legs no more than 1x/wk to improve her quality of life 11/15/21 - GOAL MET Pt denies shooting pain since soon after starting therapy. LTG Duration 8 weeks Assessment Summary Assessment Educated pt extensively on path of affected nerve and self-STM for anterior tibialis and peroneals. Pt is independent with HEP and motivated to continue. She is ready to discharge. Physical Therapy Plan Frequency and Duration Frequency of Treatment 1x/Week Duration of Treatment 8 weeks Plan of Care Start Date 11/28/21 Plan of Care End Date 12/16/21 Therapeutic Interventions Therapeutic Interventions Balance Training,Gait Training ,Home Exercise Program,Joint Mobilizations,Manual Therapy, Neuromuscular Re-education, Orthotic/Prosthetic Management ,Patient/Caregiver Education, Self-Care/Home Management,Soft Tissue Mobilization,Taping, Therapeutic Activities, Therapeutic Exercises Modalities Cold Pack/Ice Massage,Electric Stimulation,Hot Packs, Infrared Therapy,Ultrasound Discharge Physical Therapy Discharge Reasons Goals Met Discharge Comments Pt has met or progressed sufficiently toward all goals. She feels she has good understanding of the anatomy and physiology and is confident in the tools she has learned to control the progression of her neuropathy. She is appropriate for discharge at this time. Plan of Care Dates Plan of Care Start Date 11/28/21 Plan of Care End Date 12/16/21 Electronically Signed by: Drea Anderson, DERICK 12/01/21 1786 Please Sign and Return: I have reviewed this Plan of Care and certify that the skilled therapy services above are required to meet the patient?s needs. Physician Signature Date Printed Name and Credentials Clinical Instructor Signature Printed Name and Credentials
== END 2021-12-02 08:19 ==
LOC: PHYS 11:15
PROVIDERS: Family Provider Internal Medicine Cardiovascular Disease; PCP Family Medicine; Referring Provider Psychiatry & Neurology Neurology; Visit Provider Psychiatry & Neurology Neurology
DX: G60.9 Hereditary and idiopathic neuropathy, unspecified (principal)
CPT/HCPCS: 97110; 97112; 97140; 97161; 97535

== ENCOUNTER → 2022-03-16 14:05 | Outpatient (CLI) | payer MEDICARE, OTHER, SELFPAY ==
--- NOTE | 2022-03-16 14:08 | DI.MRI.S_ITS ---
PROCEDURE: MR HEAD/BRAIN WO/W CON INDICATIONS: Paresthesia of skin TECHNIQUE: Noncontrast axial T1 spin echo, axial T2 fast spin echo, sagittal and axial FLAIR, coronal T2 fast spin echo, axial gradient echo, axial diffusion and ADC through the brain. After the administration of contrast, axial and coronal 3D VIBE or T1 spin echo with fat saturation through the brain. COMPARISON: None. FINDINGS: Image quality: Excellent. CSF Spaces: Basal cisterns are patent. No extra-axial fluid collections. Ventricles are normal in size and shape. Brain: No midline shift. No intracranial bleeds or masses. There is mild, diffuse cerebral volume loss. There are mild periventricular and subcortical white matter chronic microvascular ischemic changes. No abnormal intracranial enhancement. The brainstem appears normal. Diffusion-weighted images demonstrate no acute ischemic insults. No chronic ischemic insults. Normal intravascular flow voids are present. Dural sinuses demonstrate normal postcontrast enhancement. Skull and face: Calvarial marrow is normal in signal. Orbits appear normal. Sinuses: Sinuses and mastoids appear clear. IMPRESSION: 1. No acute intracranial disease process. 2. No abnormal intracranial mass or suspicious postcontrast enhancement. 3. Mild, diffuse cerebral volume loss. Carolyne a 4. Mild periventricular and subcortical white matter chronic microvascular ischemic change. Dictated by: Susana Segovia MD, PhD on 03/16/2022 at 16:14 Approved by: Susana Segovia MD, PhD on 03/16/2022 at 16:18
== END ==
PROVIDERS: Family Provider Internal Medicine Cardiovascular Disease; PCP Family Medicine; Referring Provider Psychiatry & Neurology Neurology; Visit Provider Psychiatry & Neurology Neurology
DX: R20.2 Paresthesia of skin (principal)
CPT/HCPCS: 70553

== ENCOUNTER → 2022-07-24 10:34 | Outpatient (CLI) | payer MEDICARE, OTHER, SELFPAY ==
[2022-07-24 13:28] LABS: HEMOLYSIS < 15 (0-50); Sodium 139 mmol/L (137-145)
[2022-07-24 13:29] LABS: BUN Creatinine Ratio 25.8 (6-22); Blood Urea Nitrogen 17 mg/dL (7-17); Calcium 9.2 mg/dL (8.4-10.2); Carbon Dioxide 30 mmol/L (22-32); Chloride 102 mmol/L (98-107); Estimated Glomerular Filt Rate > 60 mL/min (>60); Glucose 84 mg/dL (80-110); Potassium 4.4 mmol/L (3.4-5.1)
== END ==
PROVIDERS: Family Provider Internal Medicine Cardiovascular Disease; PCP Family Medicine; Referring Provider Otolaryngology Facial Plastic Surgery; Visit Provider Otolaryngology Facial Plastic Surgery
DX: R22.1 Localized swelling, mass and lump, neck (principal); H93.A2 Pulsatile tinnitus, left ear
CPT/HCPCS: 36415; 80048

== ENCOUNTER → 2022-07-26 09:50 | Outpatient (CLI) | payer MEDICARE, OTHER, SELFPAY ==
--- NOTE | 2022-07-26 | DI.CT.S_ITS ---
PROCEDURE: CT SOFT TISSUE NECK W CON INDICATIONS: Localized swelling, mass and lump, neck TECHNIQUE: After the administration of intravenous contrast, 3.0 mm axial sections acquired from the sella to the aortic arch. Additional oblique axial 3.0 mm sections acquired through the pharynx. 3 mm thick coronal and sagittal reformats were generated. For radiation dose reduction, the following was used: automated exposure control. Palpable abnormality left upper neck was marked on the skin with BB marker COMPARISON: None. FINDINGS: Skull Base: The visualized intracranial contents, skull, and orbits are unremarkable. Visualized paranasal sinuses are clear. Pharynx and Larynx: The nasopharyngeal airway is patent and midline. Parapharyngeal soft tissues including palatine tonsils and base of the tongue are normal. Retropharyngeal space unremarkable. Normal appearance of the false and true vocal cords. Muscles and Fascial Planes: Fascial planes are well maintained. No abscess or mass lesion. Lymph Nodes: No evidence of adenopathy. Vasculature: Unremarkable. Submandibular and Parotid Glands: Normal in size and attenuation. Thyroid: 8 mm left thyroid hypodense nodule associated with smaller hypodense nodules on the right Bones: No acute fracture. No osteolytic or blastic lesion is evident. Normal bone mineralization. Mild degenerative changes noted in the cervical spine Lung Apices: The visualized lung apices are clear. IMPRESSION: 1. Unremarkable CT neck. No CT correlate to palpable abnormality in the left Approved by: Joey Callaawy M.D. on 07/26/2022 at 13:52
== END ==
PROVIDERS: Family Provider Internal Medicine Cardiovascular Disease; PCP Family Medicine; Referring Provider Otolaryngology Facial Plastic Surgery; Visit Provider Otolaryngology Facial Plastic Surgery
DX: R22.1 Localized swelling, mass and lump, neck (principal)
CPT/HCPCS: 70491; Q9967

== ENCOUNTER → 2022-09-08 14:14 | Outpatient (CLI) | payer MEDICARE, OTHER, SELFPAY ==
--- NOTE | 2022-09-08 14:16 | DI.MG.S_ITS ---
BILATERAL DIGITAL SCREENING MAMMOGRAM 3D/2D WITH CAD: 09/08/2022 CLINICAL: Routine screening. Comparison is made to exams dated: 07/31/2020 mammogram, 07/15/2018 mammogram, and 12/04/2016 mammogram - [facility]. Both breasts are heterogeneously dense, which may obscure small masses (category c / 51-75% glandular tissue). Current study was also evaluated with a Computer Aided Detection (CAD) system. There are benign calcifications in both breasts. No significant masses, calcifications, or other findings are seen in either breast. There has been no significant interval change. IMPRESSION: BENIGN There is no mammographic evidence of malignancy. A 1 year screening mammogram is recommended. Based on the Tyrer Cuzick model (a risk assessment model) the patient's lifetime risk is 7.4% and her 10 year risk is 5.1%. According to the ACR, ACS, and NCCN guidelines, an annual breast MRI exam along with mammogram is recommended if the patient's lifetime risk is 20% or greater. This exam was interpreted at Station ID: [id number]. NOTE: For mammograms, a report in lay terms will be sent to the patient. Approximately 15% of breast malignancies will not be visualized mammographically. In the management of a palpable breast mass, a negative mammogram must not discourage biopsy of a clinically suspicious lesion. Electronically Signed By: Moncho andrade/lester:09/08/2022 17:39:50 letter sent: Normal Exam ACR BI-RADS Category 2: Benign Finding(s) 3342F
== END ==
PROVIDERS: Family Provider Internal Medicine Cardiovascular Disease; PCP Family Medicine; Referring Provider Family Medicine; Visit Provider Family Medicine
DX: Z12.31 Encounter for screening mammogram for malignant neoplasm of breast (principal)
CPT/HCPCS: 77063; 77067

== ENCOUNTER → 2022-11-09 11:27 | Outpatient (CLI) | payer MEDICARE, OTHER, SELFPAY ==
[2022-11-09 13:37] LABS: COVID19 -Nasal RAPID Negative (Negative)
== END ==
PROVIDERS: Family Provider Internal Medicine Cardiovascular Disease; PCP Family Medicine; Visit Provider Surgery
DX: Z01.812 Encounter for preprocedural laboratory examination (principal); Z20.822 Contact with and (suspected) exposure to COVID-19
CPT/HCPCS: 87635; C9803

== ENCOUNTER 2022-11-10 09:45 | Day surgery (SDC) | payer MEDICARE, OTHER, SELFPAY ==
[2022-11-10] VITALS (9 sets, daily range): BP systolic 85–141; BP diastolic 48–79; PULSE 66–111; RESP 15–19; TEMP 36.3–36.7; O2SAT 98–100; BMI 19.2
--- NOTE | 2022-11-10 | PATH_ITS ---
[facility] Accession Number: [id number] No. of containers..03 Tissue . 01 Material submitted: . PART A: cecum - CECAL POLYP X2 PART B: colon - ASCENDING COLON POLYP X2 PART C: rectum - RECTAL POLYP . 01 Diagnosis: A. Cecum, Polyp x2, Biopsy: Tubular adenomas. . B. Ascending Colon, Polyp x2, Biopsy: Tubular adenoma. Sessile serrated adenoma. . C. Rectum, Polyp, Biopsy: Hyperplastic polyp. [facility] 11/13/2022 1043 Local . 01 Electronically signed: . Elizabeth Griffiths MD, Pathologist NPI- [id number] . 01 Gross description: . Part A: CECAL POLYP X2: Received in formalin are 2 fragment(s) of zacarias, soft tissue measuring 0.4 x 0.2 x 0.2 cm to 0.3 x 0.3 x 0.2 cm submitted entirely in 1 cassette(s) Part B: ASCENDING COLON POLYP X2: Received in formalin are 2 fragment(s) of zacarias, soft tissue measuring 0.5 x 0.5 x 0.1 cm to 0.5 x 0.2 x 0.2 cm submitted entirely in 1 cassette(s) Part C: RECTAL POLYP: Received in formalin is 1 fragment(s) of zacarias, soft tissue measuring 0.5 x 0.2 x 0.1 cm submitted entirely in 1 cassette(s) /CPE 11/11/2022 0530 Local . 01 Pathologist provided ICD-10: D12.0, D12.2, K62.1 . 01 CPT . 081890, [id number], [id number] Specimen Comment: A courtesy copy of this report has been sent to [facility] Pathology Performed at: 01 [facility] [address] [facility], [place], [place] [id number] MD Rehan Snell MD Phone: [phone]
--- NOTE | 2022-11-10 10:42 | PM.HP.1 ---
History of Present Illness History of Present Illness [place] [facility] [place]ative: Ms. Garcia presents for screening colonoscopy. She does not have any family history of colon cancer. She is had several colonoscopies in the past. Her last 1 was done at [facility] 04/26/2017 as far as she remembers had no polyps seen. She has had colonoscopies were polyps were seen. She is had an open hysterectomy she has no alarm symptoms. Patient History Medical History Abnormal Pap smear of cervix (~1979) Atypical chest pain Cardiac arrhythmia (1992) Chronic rhinitis Colon polyps (2008) Congenital ankyloglossia COPD (chronic obstructive pulmonary disease) Dyspareunia Endometriosis (~1979) Fibroids (~1979) Hemorrhoids Internal hemorrhoids Measles (1959) Mumps (1959) Objective pulsatile tinnitus of left ear Osteopenia (2010) Ovarian cyst (~1979) Peripheral neuropathy Rubella (1959) Skin cancer (2006) Tinnitus of left ear Underweight Vitamin B12 deficiency Surgical History Anesthesia History of third molar tooth extraction S/P total abdominal hysterectomy and bilateral salpingo-oophorectomy (09/2000) Status post tonsillectomy and adenoidectomy (1955) Family & Social History Family History Father Heart disease Heart attack Mother Heart disease High cholesterol Dementia Heart failure Grandfather No problems noted. Grandmother No problems noted. Social History: household members none Tobacco & Substance use: Smoking Status Never smoker alcohol intake never Substance Use Type does not use Meds Home Medications and Allergies Home Medications Medication Instructions Recorded Confirmed Type diltiazem HCl 120 mg 120 mg PO DAILY 07/11/18 11/10/22 History capsule,extended release 24 hr (Cartia XT) melatonin 5 mg capsule 5 mg PO BEDTIME 08/25/19 11/10/22 History apixaban 5 mg tablet (Eliquis) 5 mg PO BID 03/10/20 11/10/22 History cholecalciferol (vitamin D3) 50 50 mcg PO DAILY 03/10/20 11/10/22 History mcg (2,000 unit) tablet estradiol 0.025 mg/24 hr weekly 1 patch transdermal QWEEK #12 01/05/22 11/10/22 Rx transdermal patch (Climara) patches [ESTRADIOL JULIO] 25 mcg vaginal 2XW #30 supp 09/11/22 Rx Allergies Allergy/AdvReac Type Severity Reaction Status Date / Time No Known Drug Allergies Allergy Verified 11/10/22 10:04 Exam Vital Signs (past 8 hours): - 11/10/22 10:10 Temperature 98.1 F Pulse Rate 111 H Respiratory Rate 16 Blood Pressure 141/79 H Pulse Oximetry 98 Oxygen Delivery Method Room Air Oxygen Delivery Method Room Air Const General: cooperative, healthy appearing and comfortable Nutritional Appearance: average body habitus ( Very tall and thin habitus) Eyes General: appearance normal, both eyes and all related structures Resp Effort & Inspection: normal respiratory effort and able to speak in complete sentences GI Palpation: soft and No tender Assessment & Plan Assessment and plan (1) Colon cancer screening: Status: Acute Assessment & Plan narrative: I discussed the risks benefits and alternatives to a screening colonoscopy including but not limited to perforation of the colon and an incomplete exam. Patient understands this and other possible risks and would like to still proceed. She can resume her Eliquis on Sunday morning Time Spent With Patient Critical Care time: I spent a total of [] minutes of critical care time on this patient's care today; this time is exclusive of procedural time.
--- NOTE | 2022-11-10 11:53 | PM.OP.COLON ---
Operative Date/Time/Diagnoses Pre-op diagnosis: Colon cancer screening Post-op diagnosis: same Procedure & Clinicians Study performed: Colonoscopy with biopsy Same procedure as scheduled: Yes Indications: Screening for colon cancer and history of polyps. Surgeon: Melissa Davis Procedure Notes Procedure in detail: Patient was taken to the endoscopy suite and placed in a left lateral decubitus position. A time-out was performed. Conscious sedation was performed with the help of anesthesia provider. Digital rectal exam was performed there were no strictures and no masses. Colonoscope was introduced through the anal canal and advanced through to the cecum. Photograph of the appendiceal orifice was obtained. There were 2 small cecal polyps which were biopsied with snare with cautery. Upon withdrawal further there were 2 additional polyps which were removed from the ascending colon. The transverse colon looked fine the sigmoid colon was very tortuous. There was some scope trauma seen at the splenic flexure. There was a small rectal polyp which was removed and biopsied. Patient tolerated the procedure well and went in good condition to the postoperative care unit. Findings: polyp(s) (Five small polyps) Specimen(s): other (1. Cecal polyps x2 2. Ascending colon polyp x2 3. Rectal polyp) Post-procedure Plan for aftercare: Depending on pathology report follow-up should be between 5 or 10 years
[2022-11-10] MEDS: LACTATED RINGERS 1,000 ML 42 ML IV (12:16)
--- NOTE | 2022-11-10 12:22 | SUR.PHASEI ---
1220 Dr Varela notified that pt BP was 90/[address] Varela ordered a bolus of 500ml LR and stated that pt could discharge after bolus if she stayed asymptomatic.
== END 2022-11-10 12:59 | disposition home or self-care (01) ==
PROVIDERS: Family Provider Internal Medicine Cardiovascular Disease; PCP Family Medicine; Referring Provider Surgery; Visit Provider Surgery
PROC: 0DJD8ZZ Inspection of Lower Intestinal Tract, Via Natural or Artificial Opening Endoscopic (ICD-10-PCS; CPT 45378; principal; 2022-11-10 10:45)
DX: Z12.11 Encounter for screening for malignant neoplasm of colon (principal); Z86.010 Personal history of colon polyps; D12.0 Benign neoplasm of cecum; D12.2 Benign neoplasm of ascending colon; K62.1 Rectal polyp
CPT/HCPCS: 45385; 45380; J2704; J3010

== ENCOUNTER → 2022-11-30 09:06 | Outpatient (CLI) | payer MEDICARE, OTHER, SELFPAY ==
[2022-11-30 11:38] LABS: Hematocrit 40.6 % (36-46); Hemoglobin 13.9 g/dL (12.0-16.0); Mean Corpuscular HGB Conc 34.3 % (30-36); Mean Corpuscular Hemoglobin 30.4 PG (26-34); Mean Corpuscular Volume 88.6 fL (80-100); Platelet Count 233 X10^3/uL (150-400); Red Blood Cell Count 4.58 X10^6/uL (4.0-5.2); Red Cell Distribution Width 12.6 % (11.6-14.8); White Blood Cell Count 6.7 X10^3/uL (4.5-11.0)
[2022-11-30 12:46] LABS: Alanine Aminotransferase 32 IU/L (<35); Albumin 3.8 g/dL (3.5-5.0); Albumin Globulin Ratio 1.2 (1.0-2.8); Alkaline Phosphatase 64 U/L (38-126); Aspartate Aminotransferase 30 IU/L (14-36); BUN Creatinine Ratio 16.4 (6-22); Bilirubin Total 0.7 mg/dL (0.2-1.3); Blood Urea Nitrogen 11 mg/dL (7-17); Calcium 8.8 mg/dL (8.4-10.2); Carbon Dioxide 29 mmol/L (22-32); Chloride 99 mmol/L (98-107); Cholesterol 193 mg/dL (140-199); Estimated Glomerular Filt Rate > 60 mL/min (>60); Globulin 3.1 g/dL (1.7-4.1); Glucose 89 mg/dL (80-110); HDL Cholesterol 57 mg/dL (40-60); HEMOLYSIS < 15 (0-50); LDL Cholesterol Calculated 122 mg/dL (<100); Potassium 4.1 mmol/L (3.4-5.1); Sodium 137 mmol/L (137-145); Total Protein 6.9 g/dL (6.3-8.2); Triglycerides 71 mg/dL (35-150)
== END ==
PROVIDERS: Family Provider Internal Medicine Cardiovascular Disease; PCP Family Medicine; Referring Provider Family Medicine; Visit Provider Family Medicine
DX: E78.5 Hyperlipidemia, unspecified (principal); Z79.01 Long term (current) use of anticoagulants
CPT/HCPCS: 36415; 80053; 80061; 85027

== ENCOUNTER → 2023-03-07 15:11 | Outpatient (CLI) | payer MEDICARE, OTHER, SELFPAY ==
--- NOTE | 2023-03-07 | DI.US.S_ITS ---
PROCEDURE: US CAROTID DOPPLER BI INDICATIONS: RIGHT CAROTID BRUIT TECHNIQUE: Color and pulse Doppler interrogation was performed of both carotid systems, with image documentation and velocity measurements. COMPARISON: [facility], [place], US CAROTID DOPPLER BI, 02/04/2021, 15:03. FINDINGS: Stenosis calculations are based on SRU (Society of Radiologists in Ultrasound) criteria. Right side: Brachial blood pressure: 100/56 mm Hg. Common carotid artery peak systolic velocity: 134 cm/sec. Internal carotid artery peak systolic velocity: 137 cm/sec. Internal carotid artery end diastolic velocity: 34 cm/sec. External carotid artery peak systolic velocity: 138 cm/sec. ICA/CCA peak systolic ratio: 1.0. Coleman scale imaging description: No significant atherosclerotic plaques are seen. Percent internal carotid artery stenosis: Less than 50%... Vertebral artery: Flow direction is antegrade. Left side: Brachial blood pressure: 98/58 mm Hg. Common carotid artery peak systolic velocity: 137 cm/sec. Internal carotid artery peak systolic velocity: 146 cm/sec. Internal carotid artery end diastolic velocity: 24 cm/sec. External carotid artery peak systolic velocity: 102 cm/sec. ICA/CCA peak systolic ratio: 1.1. Coleman scale imaging description: Mild atherosclerotic plaques in distal left common carotid artery and origins of left internal and external carotid arteries are seen. Percent internal carotid artery stenosis: Less than 50%. Vertebral artery: Flow direction is antegrade. Incidentally noted are small bilateral thyroid nodules. IMPRESSION: 1. Less than 50% stenosis in bilateral proximal internal carotid arteries. 2. Incidentally noted of small bilateral thyroid nodules suggest clinical correlation. Dictated by: Goran Samuels M.D. on 03/07/2023 at 16:51 Approved by: Goran Samuels M.D. on 03/07/2023 at 16:54
== END ==
PROVIDERS: Family Provider Internal Medicine Cardiovascular Disease; PCP Family Medicine; Referring Provider Otolaryngology; Visit Provider Otolaryngology
DX: I65.23 Occlusion and stenosis of bilateral carotid arteries (principal); E04.2 Nontoxic multinodular goiter; R09.89 Other specified symptoms and signs involving the circulatory and respiratory systems
CPT/HCPCS: 93880

== ENCOUNTER → 2023-05-16 10:44 | Outpatient (CLI) | payer MEDICARE, OTHER, SELFPAY ==
--- NOTE | 2023-05-16 10:45 | DI.RAD.S_ITS ---
PROCEDURE: FL BARIUM SWALLOW W SPEECH INDICATIONS: eval and treat COMPARISON: None. TECHNIQUE: Examination was conducted in conjunction with speech pathology per standard protocol. In the lateral projection, filming was performed of the patient swallowing. AP projection filming may also be performed with patient swallowing. COMPARISON: FINDINGS: Function: The oral preparatory phase appears normal, with proper containment. The subsequent oral propulsive phase, pharyngeal phase of swallowing also appear normal with all proffered substances. There was delayed passage through the esophagus. Barium pill got stuck multiple times within the mid and distal esophagus . No laryngotracheal penetration or aspiration. No pathologic vallecular pooling. Morphology: No cricopharyngeal bar is identified. No cervical esophageal webs. No Zenker's diverticulum. No strictures. Anterior osteophytosis of the cervical spine indents the esophagus. IMPRESSION: Delayed passage of food and barium tablet within the mid and distal esophagus. Please refer to speech pathologist's note for further details. Dictated by: Rohith Hidalgo M.D. on 05/16/2023 at 18:03 Approved by: Rohith Hidalgo M.D. on 05/16/2023 at 18:06
--- NOTE | 2023-05-16 15:02 | ST.SWALLOW ---
Visit Care Team Role Provider Type Howard Alfred MD Family Provider Non-Staff Specialty: Cardiology Address: [address] [place] [address] [address], [place], [address] Email: Saloni Tse DO Attending Provider Physician Primary Care Provider Referring Provider Specialty: Medical Address: [address] [place] [address], [address], [place], [address] Email: [email or web address] Modified Barium Swallow Study CALL OUT CLERK Modified Barium Swallow Study Start: 05/16/23 13:16 Freq: Status: Active Protocol: Document 05/16/23 13:17 LNK (Rec: 05/16/23 15:02 LNK [id number]) Modified Barium Swallow Study Total Time Visit Start Time 11:00 Visit Stop Time 11:30 Total Visit Minutes 30 Referral Referring Physician Vance Delvalle MD Reason for Referral dysphagia Setting Setting Outpatient Care Patient Information Identification Type Name,Date of Patient History Pt is a 72 year-old female c/o difficulty swallowing, especially pills. Approximately 1-2 weeks ago she experienced difficulty with swallowing capsules, reporting pain with swallowing . She also reported a burning sensation in the chest area after difficulty swallowing. Since then she has felt she has had a source of irritation and pain to the chest when swallowing pills. She describes it as though nothing is moving. Additionally, after swallowing a pill, she will drink more water to try to move the pill along, but she feels like the water cannot go down and she will feel as though the liquid is flowing back and forth in her esophagus. When the pills get stuck when reported infrequent instances of heart palpitations and is SOB. Pt's PMH includes cardiac arrythmea, COPD and GERD. The pt does not take omneprozol for GERD but uses Pepsid as needed. Subjective Observations Pt was seated in the fluoroscopy chair with procedures and instructions described for her. Pt indicated she understood and agreed to proceed. Patient Positioning Position View Lat-A/P Imaging Lateral View Textures Administered Trials Presented Thin Liquid via Spoon (IDDSI 0 ),Thin Liquid via Cup (IDDSI 0 ),Extremely Thick Liquid via Spoon (IDDSI 4),Easy to Chew ( IDDSI 7),Regular (IDDSI 7) Barium Tablet Yes The IDDSI Framework Protocol: IDDSI.1 Oral Impairment Source: The Modified Barium Swallow Impairment Profile (MBSImP??) Lip Closure No labial escape Tongue Control During Bolus Hold Cohesive bolus between tongue to palatal seal Bolus Preparation/Mastication Timely & efficient chewing & mashing Bolus Transport/Lingual Motion Delayed initiation of tongue motion Oral Residue Complete oral clearance Initiation of Pharyngeal Swallow Bolus head in valleculae Additional Oral Impairment Observations OME and DKS were observed to be WNL. Dentition was natural in good hygiene. ORAL PHASE: Mastication was adequate with a rotary chew pattern. No oral residue was observed. Premature spillage to the valeculla was noted pre- swallow. Pharyngeal Impairment Source: The Modified Barium Swallow Impairment Profile (MBSImP??) Soft Palate Elevation No bolus between soft palate & pharyngeal wall Laryngeal Elevation Comp.sup.move.thyroid cart.w/ comp.approx.arytenoids to epiglot petiole Anterior Hyoid Excursion Partial anterior movement Epiglottic Movement Complete inversion Laryngeal Vestibular Closure Complete; no air/contrast in laryngeal vestibule Pharyngeal Stripping Wave Present - diminished Pharyngoesophageal Segment Opening Partial distention/partial duration; partial obstruction of flow Tongue Base Retraction Narrow column of contrast/air between tongue base & post. pharyngeal wall Pharyngeal Residue Trace residue within/on pharyngeal structures Location Valleculae Additional Pharyngeal Impairment Premature spillage to the Observations valeculla was noted pre- swallow. Base of tongue weakness negatively impacted movement of the hyoid and the posterior pharyngeal wall contractions. The medial pharyngeal constrictor appeared to be less effective with moving the bolus. Swallowing solid and semi- solid textures resulted in the pt reporting the textures feeling stuck. Several osteophytes were noted to alter the shape and flow of the boluses (C-3, C-4, C-5, C- 6 and C7). The PES was noted to be reduced in distention and duration of opening with partial obstruction of the bolus flow. C-4 and C-5 appeared to contribute to the limited opening of the PES. Retention of contrast was noted in the upper esophagus proximal to the PES. A/P View Textures Administered Trials Presented Regular (IDDSI 7) The IDDSI Framework Protocol: IDDSI.1 A/P View Observations Esophageal Clearance Upright Position Esophageal retention Esophageal Function Slowed Clearing,Poor Motility, Stasis Additional A-P Observations A swallowed barium tablet was observed to stop at the level of the pt's clavicles. Despite several swallows of water the tablet did not move, but did rotate. However, after the pt burped, the tablet did move. The tablet then stopped at the LES and did not move into the stomach despite several swallows of water. The pt reported feeling as though the water was not flowing; however fluid was observed to flow into the stomach and the small intestine as well. After several minutes, the MBSS was stopped before the pill entered the stomach Clinical Impressions Dysphagia Type Esophageal Patient Appropriate for Therapy No Recommendations Diet Liquids Order Thin (IDDSI 0) Diet Order Regular (IDDSI 7) Medication Recommendation As Tolerated,Whole in Carrier, Crushed in Carrier Aspiration Precautions Recommended Precautions Upright at 90 Degrees, Alternate Liquids/Solids, Frequent Rest Periods,Small Bites/Sips Additional Precautions Remain upright after meals x 60 minutes, minimum. Treatment Plan Recommended Referrals GI Consult Therapy Strategy Recommendations Sitting Upright (90 deg),Small Bites and Sips,Alternate Liquids/Solids Additional Strategies Recommended Medications in a carrier either crushed or whole
== END ==
PROVIDERS: Family Provider Internal Medicine Cardiovascular Disease; PCP Family Medicine; Referring Provider Family Medicine; Visit Provider Family Medicine
DX: R10.13 Epigastric pain (principal)
CPT/HCPCS: 74230; 92611

== ENCOUNTER → 2023-08-17 08:53 | Outpatient (CLI) | payer MEDICARE, OTHER, SELFPAY ==
--- NOTE | 2023-08-17 08:54 | DI.RAD.S_ITS ---
PROCEDURE: XR CERVICAL SPINE 2V OR 3V INDICATIONS: neck/back pain, unexplained weight loss TECHNIQUE: 3 view(s) of the cervical spine were acquired. COMPARISON: None. FINDINGS: Bones: Lateral view extends from the skull base to C7. No acute fracture or traumatic subluxation. Vertebral body height is maintained. Minimal degenerative changes of the cervical spine with tiny osteophytosis and facet arthropathy. The lateral masses of C1 appear intact on the odontoid view. No suspicious bony lesions. Soft tissues: No prevertebral soft tissue swelling. Visualized lung apices are clear. Benign appearing calcification in the posterior neck soft tissues at the level of C5-C6 measuring 1.3 cm. IMPRESSION: 1. No acute fracture or traumatic subluxation. 2. No suspicious bony lesions. 3. Benign appearing calcification in the posterior neck soft tissues at the level of C5-C6 measuring 1.3 cm. Correlate for point tenderness. Dictated by: Zakia Galo M.D. on 08/17/2023 at 10:33 Approved by: Zakia Galo M.D. on 08/17/2023 at 10:36
--- NOTE | 2023-08-17 08:54 | DI.RAD.S_ITS ---
PROCEDURE: XR THORACIC SPINE 3V INDICATIONS: neck/back pain, unexplained weight loss TECHNIQUE: 3 views of the thoracic spine were acquired. COMPARISON: None. FINDINGS: Bones: No fractures or dislocations. No suspicious bony lesions. 12 pairs of ribs are noted, and appear intact where visualized. Vertebral body height is maintained. Mild multilevel degenerative changes with disc height loss and anterior osteophytosis. No suspicious osseous lesions. Soft tissues: No paravertebral stripe thickening. Visualized lungs are clear. Normal heart size and mediastinal contour. IMPRESSION: 1. No acute fracture or traumatic subluxation. 2. No suspicious osseous lesions. 3. Mild multilevel degenerative changes of the spine. Dictated by: Zakia Galo M.D. on 08/17/2023 at 10:31 Approved by: Zakia Galo M.D. on 08/17/2023 at 10:33
== END ==
PROVIDERS: Family Provider Internal Medicine Cardiovascular Disease; PCP Family Medicine; Referring Provider Family Medicine; Visit Provider Family Medicine
DX: M54.2 Cervicalgia (principal); R63.4 Abnormal weight loss; M54.6 Pain in thoracic spine; M53.82 Other specified dorsopathies, cervical region
CPT/HCPCS: 72040; 72072

== ENCOUNTER → 2023-09-18 11:25 | Outpatient (CLI) | payer MEDICARE, OTHER, SELFPAY ==
--- NOTE | 2023-09-18 11:27 | DI.RAD.S_ITS ---
Bone Density Report Name: CARL SAMUELS Age: 73 Sex: Female Ethnicity: White Date of : 1950 Indication: osteopenia; parental hip fracture; Referring Provider: TJ FERNANDO Study: Bone densitometry was performed. Exam Date: September 18, 2023 Accession number: [id number] Bone Density: Region BMD T-score Z-score Classification AP Spine(L1-L4) 0.918 -1.2 1.1 Osteopenia Femoral Neck (Left) 0.614 -2.1 -0.2 Osteopenia Total Hip (Left) 0.697 -2.0 -0.4 Osteopenia Femoral Neck (Right) 0.602 -2.2 -0.3 Osteopenia Total Hip (Right) 0.722 -1.8 -0.2 Osteopenia Total Hip Mean 0.710 -1.9 -0.3 Osteopenia World Health Organization criteria for BMD impression classify patients as: Normal (T-score at or above -1.0), Osteopenia (T-score between -1.0 and -2.5), or Osteoporosis (T-score at or below -2.5). 10-year Fracture Risk(1): Major Osteoporotic Fracture 18% Hip Fracture 7.7% Reported Risk Factors: [place] (), Neck BMD=0.602, BMI=18.0, parental fracture (1) FRAX(R) Version 3.08. Fracture probability calculated for an untreated patient. Fracture probability may be lower if the patient has received treatment. Previous Exams: -- Region Exam Age BMD T-score BMD Change BMD Change Date g/cm2 vs Baseline vs Previous -- AP Spine (L1-L4) 09/18/2023 73 0.918 -1.2 -0.120 (-11.5%)# -0.048 (-5.0%)# 07/25/2021 71 0.967 -0.7 -0.071 (-6.9%)* -0.026 (-2.6%)* 07/24/2019 69 0.993 -0.5 -0.046 (-4.4%)* -0.006 (-0.6%) 07/23/2017 67 0.999 -0.4 -0.039 (-3.8%)* 0.008 (0.8%) 07/21/2015 65 0.990 -0.5 -0.048 (-4.6%)* -0.016 (-1.6%) 03/07/2013 62 1.006 -0.4 -0.032 (-3.1%)* -0.032 (-3.1%)* 12/12/2010 60 1.038 -0.1 Total Hip(Left) 09/18/2023 73 0.697 -2.0 -0.126 (-15.3%)# -0.019 (-2.7%)# 07/25/2021 71 0.717 -1.8 -0.107 (-13.0%)* -0.003 (-0.4%) 07/24/2019 69 0.719 -1.8 -0.104 (-12.6%)* -0.021 (-2.8%) 07/23/2017 67 0.740 -1.7 -0.083 (-10.1%)* 0.006 (0.9%) 07/21/2015 65 0.734 -1.7 -0.090 (-10.9%)* -0.060 (-7.5%)* 03/07/2013 62 0.794 -1.2 -0.030 (-3.6%)* -0.030 (-3.6%)* 12/12/2010 60 0.824 -1.0 Total Hip(Right) 09/18/2023 73 0.722 -1.8 -0.100 (-12.1%)# 0.007 (1.0%)# 07/25/2021 71 0.715 -1.9 -0.107 (-13.0%)* 0.007 (1.0%) 07/24/2019 69 0.708 -1.9 -0.114 (-13.9%)* -0.044 (-5.8%)* 07/23/2017 67 0.751 -1.6 -0.071 (-8.6%)* -0.008 (-1.0%) 07/21/2015 65 0.759 -1.5 -0.063 (-7.7%)* -0.037 (-4.6%)* 03/07/2013 62 0.796 -1.2 -0.026 (-3.2%) -0.026 (-3.2%) 12/12/2010 60 0.822 -1.0 -- *Denotes significance at 95% confidence level, LSC for AP Spine = 0.022 g/cm2, LSC for Total Hip = 0.027 g/cm2 # Denotes dissimilar scan types or analysis methods Impression: The patient has low bone mass, based on the Right Femoral Neck T-score. The patient has an estimated ten-year risk of hip fracture of 7.7% and an estimated ten-year risk of major fracture of 18%, based on the WHO FRAX algorithm. The patient has risk factors, including: parental hip fracture. No significant bone loss was observed. Discussion: BONE DENSITY IS LOW AT ONE OR MORE SKELETAL SITES. THE PATIENT'S BMD AND CLINICAL RISK FACTORS CONTRIBUTE TO THIS PATIENT'S INCREASED RISK OF FRACTURE. This patient's lowest T-score is low at one or more skeletal sites. It meets the World Health Organization's (WHO) criteria for low bone mass (T-score between -1.0 and -2.5). The patient's 10-year risk of hip fracture as calculated by FRAX exceeds the threshold where pharmacological therapy is recommended by the National Osteoporosis Foundation (NOF). However, all treatment decisions require clinical judgment and consideration of individual patient factors, including patient preferences, comorbidities, previous drug use, risk factors not captured in the FRAX model (e.g., frailty, falls, vitamin D deficiency, increased bone turnover, interval significant decline in bone density) and possible under or overestimation of fracture risk by FRAX. The patient should follow a healthful lifestyle (good nutrition with adequate calcium and vitamin D, and appropriate weight-bearing exercise). Follow-Up: Consider a repeat BMD and Vertebral Fracture Assessment (VFA) exam in 2 years or sooner if medically necessary, to reassess this patient's status. Reported by: BENITEZ WICK M.D. on 09/18/2023 12:00:00 PM.
--- NOTE | 2023-09-18 11:27 | DI.MG.S_ITS ---
BILATERAL DIGITAL SCREENING MAMMOGRAM 3D/2D WITH CAD: 09/18/2023 CLINICAL: Routine screening. Comparison is made to exams dated: 09/08/2022 mammogram, 07/31/2020 mammogram, and 07/15/2018 mammogram - . Both breasts are heterogeneously dense, which may obscure small masses (category c / 51-75% glandular tissue). Current study was also evaluated with a Computer Aided Detection (CAD) system. There are benign calcifications in both breasts. No significant masses, calcifications, or other findings are seen in either breast. There has been no significant interval change. IMPRESSION: BENIGN There is no mammographic evidence of malignancy. A 1 year screening mammogram is recommended. Based on the Tyrer Cuzick model (a risk assessment model) the patient's lifetime risk is 6.9% and her 10 year risk is 5.1%. According to the ACR, ACS, and NCCN guidelines, an annual breast MRI exam along with mammogram is recommended if the patient's lifetime risk is 20% or greater. This exam was interpreted at Station ID: [id number]. NOTE: For mammograms, a report in lay terms will be sent to the patient. Approximately 15% of breast malignancies will not be visualized mammographically. In the management of a palpable breast mass, a negative mammogram must not discourage biopsy of a clinically suspicious lesion. Electronically Signed By: Moncho andrade/lester:09/18/2023 12:57:34 letter sent: Normal Exam ACR BI-RADS Category 2: Benign Finding(s) 3342F
== END ==
PROVIDERS: Family Provider Internal Medicine Cardiovascular Disease; PCP Family Medicine; Referring Provider Family Medicine; Visit Provider Family Medicine
DX: Z12.31 Encounter for screening mammogram for malignant neoplasm of breast; M85.89 Other specified disorders of bone density and structure, multiple sites; N95.9 Unspecified menopausal and perimenopausal disorder; R63.4 Abnormal weight loss; K22.0 Achalasia of cardia; E78.5 Hyperlipidemia, unspecified; I48.0 Paroxysmal atrial fibrillation; M85.80 Other specified disorders of bone density and structure, unspecified site; I47.10 Supraventricular tachycardia, unspecified
CPT/HCPCS: 77063; 77067; 77080

== ENCOUNTER 2023-10-23 14:54 | Emergency (ER) | payer MEDICARE, OTHER, SELFPAY ==
[2023-10-23] VITALS (9 sets, daily range): BP systolic 147–184; BP diastolic 65–82; PULSE 63–99; RESP 15–21; TEMP 36.8; O2SAT 95–99; BMI 17.7
--- NOTE | 2023-10-23 15:15 | DI.RAD.S_ITS ---
PROCEDURE: XR CHEST 1V INDICATIONS: chest pain TECHNIQUE: One view of the chest was acquired. COMPARISON: [facility], [place], XR CHEST 2V, 04/10/2018, 15:22. FINDINGS: Surgical changes and devices: None. Lungs and pleura: Lungs are clear. No pleural effusions or pneumothorax. Lungs hyperinflated suggesting COPD. Mediastinum: Mediastinal contours appear normal. Heart size is normal. Bones and chest wall: No suspicious bony lesions. Overlying soft tissues appear unremarkable. IMPRESSION: No acute cardiopulmonary abnormality is seen. Dictated by: Susana Segovia MD, PhD on 10/23/2023 at 15:51 Approved by: Susana Segovia MD, PhD on 10/23/2023 at 15:54
[2023-10-23 15:39] LABS: INR 1.2 (0.9-1.3); Prothrombin Time 13.9 SECONDS (9.4-12.5)
[2023-10-23 15:41] LABS: Add Manual Diff / Slide Review NO; Basophils Absolute Auto 100 /uL (0-100); Basophils Percent Auto 0.7 % (0-2); Eosinophils Absolute Auto 100 /uL (0-450); Eosinophils Percent Auto 1.4 % (2-4); Hematocrit 43.3 % (36-46); Hemoglobin 14.7 g/dL (12.0-16.0); Lymphocytes Absolute Auto 2800 /uL (1100-4500); Lymphocytes Percent Auto 34.5 % (25-40); Mean Corpuscular HGB Conc 33.9 % (30-36); Mean Corpuscular Volume 91.3 fL (80-100); Monocytes Absolute Auto 600 /uL (0-900); Monocytes Percent Auto 7.5 % (3-14); Neutrophils Absolute Auto 4600 /uL (1500-7000); Neutrophils Percent Auto 55.9 % (50-75); Platelet Count 213 X10^3/uL (150-400); Red Blood Cell Count 4.74 X10^6/uL (4.0-5.2); White Blood Cell Count 8.2 X10^3/uL (4.5-11.0)
[2023-10-23 15:42] LABS: PTT Partial Thromboplastin Tim 33 SECONDS (25.1-36.5)
[2023-10-23 15:43] LABS: Alanine Aminotransferase 40 IU/L (<35); Albumin 4.4 g/dL (3.5-5.0); Albumin Globulin Ratio 1.3 (1.0-2.8); Alkaline Phosphatase 56 U/L (38-126); Aspartate Aminotransferase 35 IU/L (14-36); BUN Creatinine Ratio 31.9 (6-22); Bilirubin Total 0.6 mg/dL (0.2-1.3); Blood Urea Nitrogen 23 mg/dL (7-17); Calcium 9.7 mg/dL (8.4-10.2); Carbon Dioxide 28 mmol/L (22-32); Chloride 102 mmol/L (98-107); Creatine Kinase 57 U/L (30-135); Estimated Glomerular Filt Rate > 60 mL/min (>60); Globulin 3.5 g/dL (1.7-4.1); Glucose 97 mg/dL (80-110); HEMOLYSIS < 15 (0-50); Lipase 137 U/L (23-300); Magnesium 2.1 mg/dL (1.6-2.3); Potassium 3.7 mmol/L (3.4-5.1); Sodium 136 mmol/L (137-145); Total Protein 7.9 g/dL (6.3-8.2)
[2023-10-23 15:56] LABS: Troponin I < 0.012 ng/mL (0.01-0.034)
--- NOTE | 2023-10-23 19:19 | ED_ITS ---
HPI - Chest Pain General Chief Complaint: Chest Pain Stated Complaint: PCP ref adb spams/ chest pain Time Seen by Provider: 10/23/23 18:25 Source: patient Mode of arrival: Ambulatory Limitations: no limitations History of Present Illness HPI narrative: Patient is a 73-year-old female. Has a history of AFib. Is on anticoagulation for this. Has also had issues with swallowing. She has seen GI in his had an upper endoscopy. She states that earlier today she started to generalized abdominal discomfort. It was intermittent throughout the day. Not necessarily associated with swallowing. As the day went on it seemed to localize more in her epigastric region. She also states that she had sensation that she felt like she needs to burp but could not do so. She denies any change in bowel habits. No urinary symptoms. At the time of my exam she has no symptoms. Has not had symptoms for the past hour. Related Data Home Medications Medication Instructions Recorded Confirmed diltiazem HCl 120 mg 120 mg PO DAILY 07/11/18 08/31/23 capsule,extended release 24 hr (Cartia XT) melatonin 5 mg capsule 5 mg PO BEDTIME 08/25/19 08/31/23 apixaban 5 mg tablet (Eliquis) 5 mg PO BID 03/10/20 08/31/23 cholecalciferol (vitamin D3) 50 50 mcg PO DAILY 03/10/20 08/31/23 mcg (2,000 unit) tablet Osteo-meghan 2 cap PO BID 08/31/23 Previous Rx's Medication Instructions Recorded [ESTRADIOL JULIO] 25 mcg vaginal 2XW #30 supp 09/11/22 estradiol 0.025 mg/24 hr weekly 1 patch transdermal QWEEK #12 12/14/22 transdermal patch (Climara) patches Allergies Allergy/AdvReac Type Severity Reaction Status Date / Time No Known Drug Allergies Allergy Verified 08/31/23 12:11 Review of Systems Constitutional Constitutional: Reports system reviewed and no additional complaints, except as documented Cardiovascular Cardiovascular: Reports system reviewed and no additional complaints, except as documented Respiratory Respiratory: Reports system reviewed and no additional complaints, except as documented Gastrointestinal Gastrointestinal: Reports system reviewed and no additional complaints, except as documented Genitourinary Genitourinary: Reports system reviewed and no additional complaints, except as documented Integumentary/Breasts Skin/Breast: Reports system reviewed and no additional complaints, except as documented Hematologic/Lymphatic On Anticoagulants: Yes Patient History Medical History Muscle strain of upper back Achalasia Underweight 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 pulsatile tinnitus of left ear Internal hemorrhoids Vitamin B12 deficiency Peripheral neuropathy COPD (chronic obstructive pulmonary disease) Chronic rhinitis Ovarian cyst (~1979) Endometriosis (~1979) Dyspareunia Colon polyps (2008) Hemorrhoids Abnormal Pap smear of cervix (~1979) Fibroids (~1979) Measles (1959) Mumps (1959) Rubella (1959) Osteopenia (2010) Cardiac arrhythmia (1992) Skin cancer (2006) Atypical chest pain Surgical History Anesthesia History of third molar tooth extraction S/P total abdominal hysterectomy and bilateral salpingo-oophorectomy (09/2000) Status post tonsillectomy and adenoidectomy (1955) Family History Father Heart disease Heart attack Mother Heart disease High cholesterol Dementia Heart failure Grandfather No problems noted. Grandmother No problems noted. Social History household members: none Smoking Status: Never smoker alcohol intake: never Smoking Status: Never smoker Substance Use Type: does not use Exam Initial Vital Signs Initial Vital Signs: Vital Signs Temperature 98.3 F 10/23/23 15:10 Pulse Rate 95 H 10/23/23 15:10 Respiratory Rate 20 10/23/23 15:10 Blood Pressure 184/82 H 10/23/23 15:10 Pulse Oximetry 98 10/23/23 15:10 Oxygen Delivery Method Room Air 10/23/23 15:10 Const General: cooperative, comfortable and No ill appearing HENMT Head: normal to inspection and normocephalic Resp Effort & Inspection: normal respiratory effort Auscultation: clear to auscultation bilaterally Cardio Rate: regular rate Rhythm: regular rhythm GI Inspection: normal to inspection and non-distended Palpation: soft, No guarding and No tender Neuro General: patient alert, patient awake, patient oriented x3 and moves all extremities Extrem General: normal to inspection Course Orders Ordered: ED Orders 10/23/23 19:19 CT abdomen pelvis w con Stat Vital Signs Vital signs: Vital Signs - 8 hr 10/23/23 19:04 10/23/23 19:06 10/23/23 19:06 Pulse Rate 99 H 89 Respiratory Rate Blood Pressure 152/71 H Pulse Oximetry 98 Oxygen Delivery Method 10/23/23 19:30 10/23/23 19:30 10/23/23 20:00 Pulse Rate 79 77 Respiratory Rate 16 15 Blood Pressure 161/71 H Pulse Oximetry 99 99 Oxygen Delivery Method 10/23/23 20:30 10/23/23 21:02 10/23/23 21:30 Pulse Rate 67 95 H 63 Respiratory Rate 19 21 Blood Pressure Pulse Oximetry 98 95 99 Oxygen Delivery Method 10/23/23 21:40 10/23/23 21:40 Pulse Rate Respiratory Rate Blood Pressure 147/65 H Pulse Oximetry 98 Oxygen Delivery Method Room Air MDM - Chest Pain Lab Data Attestation: I reviewed the patient's lab results. 10/23/23 15:23 10/23/23 15:23 Labs: Lab Results 10/23/23 Range/Units 15:23 WBC 8.2 (4.5-11.0) X10^3/uL RBC 4.74 (4.0-5.2) X10^6/uL Hgb 14.7 (12.0-16.0) g/dL Hct 43.3 (36-46) % MCV 91.3 (80-100) fL MCH 31.0 (26-34) PG MCHC 33.9 (30-36) % RDW 13.0 (11.6-14.8) % Plt Count 213 (150-400) X10^3/uL Neut % (Auto) 55.9 (50-75) % Lymph % (Auto) 34.5 (25-40) % [place] % (Auto) 7.5 (3-14) % Eos % (Auto) 1.4 L (2-4) % Baso % (Auto) 0.7 (0-2) % Neut # (Auto) 4600 (8485-3711) /uL Lymph # (Auto) 2800 (7443-4949) /uL [place] # (Auto) 600 (0-900) /uL Eos # (Auto) 100 (0-450) /uL Baso # (Auto) 100 (0-100) /uL PT 13.9 H (9.4-12.5) SECONDS INR 1.2 (0.9-1.3) APTT 33 (25.1-36.5) SECONDS Sodium 136 L (137-145) mmol/L Potassium 3.7 (3.4-5.1) mmol/L Chloride 102 (98-107) mmol/L Carbon Dioxide 28 (22-32) mmol/L BUN 23 H (7-17) mg/dL Creatinine 0.72 (0.52-1.04) mg/dL Estimated GFR > 60 (>60) mL/min BUN/Creatinine Ratio 31.9 H (6-22) Glucose 97 (80-110) mg/dL Calcium 9.7 (8.4-10.2) mg/dL Magnesium 2.1 (1.6-2.3) mg/dL Total Bilirubin 0.6 (0.2-1.3) mg/dL AST 35 (14-36) IU/L ALT 40 H (<35) IU/L Alkaline Phosphatase 56 (38-126) U/L Total Creatine Kinase 57 (30-135) U/L Troponin I < 0.012 (0.01-0.034) ng/mL Total Protein 7.9 (6.3-8.2) g/dL Albumin 4.4 (3.5-5.0) g/dL Globulin 3.5 (1.7-4.1) g/dL Albumin/Globulin Ratio 1.3 (1.0-2.8) Lipase 137 (23-300) U/L Imaging Data Chest x-ray: Radiologist's Impression: PROCEDURE: XR CHEST 1V INDICATIONS: chest pain TECHNIQUE: One view of the chest was acquired. COMPARISON: [facility], , XR CHEST 2V, 04/10/2018, 15:22. FINDINGS: Surgical changes and devices: None. Lungs and pleura: Lungs are clear. No pleural effusions or pneumothorax. Lungs hyperinflated suggesting COPD. Mediastinum: Mediastinal contours appear normal. Heart size is normal. Bones and chest wall: No suspicious bony lesions. Overlying soft tissues appear unremarkable. IMPRESSION: No acute cardiopulmonary abnormality is seen. CT scan - abdomen/pelvis: Radiologist's Impression: PROCEDURE: CT ABDOMEN PELVIS W CON INDICATIONS: Generalized abdominal pain TECHNIQUE: After the administration of intravenous contrast, axial sections acquired from the lung bases to the pubic symphysis. Coronal and sagittal reformats were performed. For radiation dose reduction, the following was used: automated exposure control, adjustment of mA and/or kV according to patient size. COMPARISON: [facility], CT, ABDOMEN/PELVIS WITH CONTRAST, 12/09/2008, 11:12. FINDINGS: Image quality: Diagnostic Lung bases: Unremarkable. Heart: No significant findings. ABDOMEN: Liver: Unremarkable. Gallbladder: Unremarkable. Biliary ducts: Unremarkable. Pancreas: Homogeneous enhancement without focal lesions or pancreatic ductal dilatation. No peripancreatic inflammation or organized fluid collections.. Spleen: No splenomegaly. Adrenal Glands: Unremarkable. Kidneys and Ureters: Kidneys are symmetric in size and enhancement, and there is no obstructive uropathy. No perinephric inflammatory changes. Ureters are normal in course and caliber. Tiny subcentimeter right renal hypodensity likely representing a cyst. Stomach and Bowel: Stomach, small bowel loops, and colon are unremarkable. Large amount of fecal material seen throughout the colon. No evidence for bowel obstruction or acute inflammatory process. The appendix is not definitively visualized. However, no secondary findings of acute inflammation are noted in the right lower quadrant. Peritoneum: No abnormal intraperitoneal fluid. No free air. Ventral Wall: No hernia. Abdominal Nodes: No retroperitoneal or mesenteric adenopathy by size criteria. Vessels: Scattered atherosclerotic calcifications of the abdominal aorta and iliac vessels without aneurysmal dilatation. The inferior vena cava appears patent. PELVIS: Pelvic Organs: Unremarkable. Bladder: Unremarkable. Pelvic Nodes: No enlarged lymph nodes. Miscellaneous: No inguinal hernias are seen. Bones: Visualized osseous structures appear intact without acute fracture or focal destructive lesion. No acute compression fractures of the imaged spine. IMPRESSION: Moderate amount of fecal material seen throughout the colon without evidence for acute inflammatory changes or bowel obstruction. Findings are nonspecific but may represent constipation. Otherwise, no acute abnormalities identified in the abdomen or pelvis. No evidence for obstructive uropathy. MDM Narrative Medical decision making narrative: At the time of my exam she does not have any symptoms. She is afebrile. Labs unremarkable. Chest x-ray and CT scan unremarkable as well. There was no indication for admission to the hospital. No indication for surgical consultation. Did discuss the possibility of the still being a GI source stating that the CT scan does not show was functionality of the esophagus in the bowel however there was no signs of any surgical pathology. There was no indication for antibiotics. Plan will be to discharge patient home with return precautions. The patient expressed understanding and agreement with plan. Discharge Plan Departure Patient Disposition: Home Clinical Impression: Abdominal pain Instructions: DI for Abdominal Pain-Adult Activity Restrictions/Additional Instructions: Recommend that you continue to take all of your medications as directed. Be sure that you were increasing the fiber in your diet like we discussed. Contact your primary care doctor for a follow-up. Return to the emergency department for new or worsening symptoms. Prescriptions: No Action [ESTRADIOL JULIO] 25 mcg VAG 2XW Qty: 30 PRNRF Rx Instructions: Insert 1 julio vaginally at bedtime twice per week. estradiol [Climara] 0.025 mg/24 hr patch weekly 1 patch transdermal QWEEK Qty: 12 3RF cholecalciferol (vitamin D3) 50 mcg (2,000 unit) tablet 50 mcg PO DAILY Eliquis 5 mg tablet 5 mg PO BID diltiazem HCl [Cartia XT] 120 mg capsule,extended release 24hr 120 mg PO DAILY melatonin 5 mg capsule 5 mg PO BEDTIME Osteo-meghan 2 cap PO BID Patient Comments: pours contents in applesauce, unable to swallow pill Referrals: Saloni Tse DO [Primary Care Provider] - Stand Alone Forms: Patient Portal/API
== END 2023-10-23 21:51 | disposition home or self-care (01) ==
PROVIDERS: Emergency Medicine; Emergency Provider Emergency Medicine; Family Provider Internal Medicine Cardiovascular Disease; PCP Family Medicine
DX: R10.84 Generalized abdominal pain (principal); R07.9 Chest pain, unspecified; Z79.01 Long term (current) use of anticoagulants
CPT/HCPCS: 36415; 71045; 74177; 80053; 82550; 83690; 83735; 84484; 85025; 85610; 85730; 93005; 99283; 99284; Q9967

== ENCOUNTER → 2023-11-19 13:56 | Outpatient (CLI) | payer MEDICARE, OTHER, SELFPAY ==
--- NOTE | 2023-11-19 13:58 | DI.RAD.S_ITS ---
PROCEDURE: XR HAND RT MIN 3V INDICATIONS: chronic worsening thumb pain TECHNIQUE: 3 views of the hand(s) acquired. COMPARISON: Located Within [facility], , HAND 3V RIGHT, 11/24/2011, 16:02. FINDINGS: Bones: Interval erosion of the medial periarticular surface of the distal phalanx of the thumb No definite fractures or dislocations. Carpal bones are normally aligned. No suspicious bony lesions. Small bone island of the distal phalanx of the thumb appears similar to prior study from 2011. Soft tissues: No radiographically evident soft tissue swelling. IMPRESSION: Interval erosion of the medial periarticular surface of the distal phalanx of the thumb since prior x-ray right hand dated 11/24/2011. Recommend rheumatology consult. Dictated by: Trever Thomas M.D. on 11/19/2023 at 18:14 Approved by: Trever Thomas M.D. on 11/19/2023 at 18:17
== END ==
LOC: RAD 13:58
PROVIDERS: Family Provider Internal Medicine Cardiovascular Disease; PCP Family Medicine; Referring Provider Family Medicine; Visit Provider Family Medicine
DX: M85.841 Other specified disorders of bone density and structure, right hand (principal); M18.10 Unilateral primary osteoarthritis of first carpometacarpal joint, unspecified hand
CPT/HCPCS: 73130

== ENCOUNTER → 2023-11-26 08:03 | Outpatient (CLI) | payer MEDICARE, OTHER, SELFPAY ==
[2023-11-26 09:11] LABS: Add Manual Diff / Slide Review NO; Basophils Absolute Auto 0 /uL (0-100); Basophils Percent Auto 0.8 % (0-2); Eosinophils Absolute Auto 100 /uL (0-450); Eosinophils Percent Auto 2.6 % (2-4); Hematocrit 41.9 % (36-46); Hemoglobin 14.2 g/dL (12.0-16.0); Lymphocytes Absolute Auto 2200 /uL (1100-4500); Lymphocytes Percent Auto 38.3 % (25-40); Mean Corpuscular HGB Conc 33.9 % (30-36); Mean Corpuscular Hemoglobin 31.1 PG (26-34); Mean Corpuscular Volume 91.6 fL (80-100); Monocytes Absolute Auto 500 /uL (0-900); Monocytes Percent Auto 9.4 % (3-14); Neutrophils Absolute Auto 2800 /uL (1500-7000); Neutrophils Percent Auto 48.9 % (50-75); Platelet Count 208 X10^3/uL (150-400); Red Blood Cell Count 4.57 X10^6/uL (4.0-5.2); Red Cell Distribution Width 13.2 % (11.6-14.8); White Blood Cell Count 5.7 X10^3/uL (4.5-11.0)
[2023-11-26 09:37] LABS: Alanine Aminotransferase 31 IU/L (<35); Albumin Globulin Ratio 1.2 (1.0-2.8); Alkaline Phosphatase 49 U/L (38-126); Aspartate Aminotransferase 30 IU/L (14-36); BUN Creatinine Ratio 24.2 (6-22); Bilirubin Total 0.9 mg/dL (0.2-1.3); Blood Urea Nitrogen 16 mg/dL (7-17); Calcium 9.6 mg/dL (8.4-10.2); Carbon Dioxide 29 mmol/L (22-32); Chloride 100 mmol/L (98-107); Cholesterol 194 mg/dL (140-199); Estimated Glomerular Filt Rate > 60 mL/min (>60); Globulin 3.3 g/dL (1.7-4.1); Glucose 88 mg/dL (80-110); HDL Cholesterol 69 mg/dL (40-60); HEMOLYSIS < 15 (0-50); LDL Cholesterol Calculated 116 mg/dL (<100); Lactate Dehydrogenase 168 U/L (120-246); Sodium 136 mmol/L (137-145); Total Protein 7.3 g/dL (6.3-8.2); Triglycerides 47 mg/dL (35-150)
[2023-11-26 09:42] LABS: High Sensitivity CRP - Cardiac < 0.3 mg/L (1.0-3.0)
[2023-11-26 09:43] LABS: Prealbumin 17.6 mg/dL (17.6-36.0)
[2023-11-26 10:02] LABS: Thyroid Stimulating Hormone 1.75 uIU/mL (0.47-4.68)
== END ==
PROVIDERS: Family Provider Internal Medicine Cardiovascular Disease; PCP Family Medicine; Referring Provider Internal Medicine; Visit Provider Internal Medicine
DX: R63.4 Abnormal weight loss (principal); E78.5 Hyperlipidemia, unspecified; K22.0 Achalasia of cardia; I48.0 Paroxysmal atrial fibrillation; M85.80 Other specified disorders of bone density and structure, unspecified site; I47.10 Supraventricular tachycardia, unspecified
CPT/HCPCS: 36415; 80053; 80061; 83615; 84134; 84443; 85025; 86140

== ENCOUNTER → 2023-12-10 10:15 | Outpatient (CLI) | payer MEDICARE, OTHER, SELFPAY ==
--- NOTE | 2023-12-10 | DI.RAD.S_ITS ---
PROCEDURE: FL BARIUM SWALLOW W AIR COMPARISON: [facility], CT, CT ABDOMEN PELVIS W CON, 10/23/2023, 19:36. INDICATIONS: DYPHAGIA FINDINGS: Forensic Nurse images unremarkable. Delayed passage of the calibrated barium tablet through the esophagus for approximately 2+ minutes. The tablet was initially held up in the upper esophagus, at than at the aortic arch, and again at the gastroesophageal junction. The tablet finally passed after several drinks of water and additional barium. There is mild esophageal dysmotility with diminished peristaltic stripping. No tertiary contractions demonstrated. No stricture or ulcer. No esophageal dilatation or achalasia demonstrated. No hiatal hernia. Elongated morphology of the stomach. No ulcer demonstrated. No gastroesophageal reflux elicited or demonstrated. IMPRESSION: Mild esophageal dysmotility. This is most notable with the barium tablet which demonstrated delayed transit despite attempts to wash the tablet down. No reflux demonstrated. No stricture. Dictated by: Som Sanchez M.D. on 12/10/2023 at 12:49 Approved by: Som Sanchez M.D. on 12/10/2023 at 12:55
== END ==
PROVIDERS: Family Provider Internal Medicine Cardiovascular Disease; PCP Family Medicine; Referring Provider Internal Medicine; Visit Provider Internal Medicine
DX: K22.4 Dyskinesia of esophagus (principal); R13.19 Other dysphagia
CPT/HCPCS: 74221

== ENCOUNTER → 2024-05-07 15:22 | Outpatient (CLI) | payer MEDICARE, OTHER, SELFPAY ==
[2024-05-07 17:09] LABS: BUN Creatinine Ratio 34.3 (6-22); Blood Urea Nitrogen 23 mg/dL (7-17); Calcium 8.8 mg/dL (8.4-10.2); Carbon Dioxide 31 mmol/L (22-32); Chloride 102 mmol/L (98-107); Estimated Glomerular Filt Rate > 60 mL/min (>60); Glucose 99 mg/dL (80-110); HEMOLYSIS < 15 (0-50); Potassium 4.1 mmol/L (3.4-5.1); Sodium 135 mmol/L (137-145)
[2024-05-07 17:16] LABS: Prealbumin 18.6 mg/dL (17.6-36.0)
== END ==
PROVIDERS: Family Provider Internal Medicine Cardiovascular Disease; PCP Family Medicine; Referring Provider Family Medicine; Visit Provider Family Medicine
DX: R63.4 Abnormal weight loss (principal); R13.12 Dysphagia, oropharyngeal phase
CPT/HCPCS: 36415; 80048; 84134

== ENCOUNTER → 2024-07-04 13:36 | Outpatient (CLI) | payer MEDICARE, OTHER, SELFPAY ==
[2024-07-04 14:35] LABS: Add Manual Diff / Slide Review NO; Basophils Absolute Auto 0 /uL (0-100); Basophils Percent Auto 0.6 % (0-2); Eosinophils Absolute Auto 100 /uL (0-450); Eosinophils Percent Auto 2.1 % (2-4); Hematocrit 40.2 % (36-46); Hemoglobin 13.9 g/dL (12.0-16.0); Lymphocytes Absolute Auto 2000 /uL (1100-4500); Lymphocytes Percent Auto 29.3 % (25-40); Mean Corpuscular HGB Conc 34.5 % (30-36); Mean Corpuscular Hemoglobin 31.8 PG (26-34); Mean Corpuscular Volume 92.1 fL (80-100); Monocytes Absolute Auto 600 /uL (0-900); Monocytes Percent Auto 8.8 % (3-14); Neutrophils Absolute Auto 4000 /uL (1500-7000); Neutrophils Percent Auto 59.2 % (50-75); Platelet Count 202 X10^3/uL (150-400); Red Blood Cell Count 4.37 X10^6/uL (4.0-5.2); Red Cell Distribution Width 12.9 % (11.6-14.8); White Blood Cell Count 6.8 X10^3/uL (4.5-11.0)
[2024-07-04 15:46] LABS: Creatinine Urine Random 31.41 mg/dL
[2024-07-04 15:47] LABS: Alanine Aminotransferase 40 IU/L (<35); Albumin 3.9 g/dL (3.5-5.0); Albumin Globulin Ratio 1.4 (1.0-2.8); Alkaline Phosphatase 52 U/L (38-126); Aspartate Aminotransferase 30 IU/L (14-36); BUN Creatinine Ratio 39.4 (6-22); Bilirubin Total 0.4 mg/dL (0.2-1.3); Blood Urea Nitrogen 28 mg/dL (7-17); Calcium 9.2 mg/dL (8.4-10.2); Carbon Dioxide 30 mmol/L (22-32); Chloride 99 mmol/L (98-107); Cholesterol 169 mg/dL (140-199); Estimated Glomerular Filt Rate > 60 mL/min (>60); Globulin 2.8 g/dL (1.7-4.1); Glucose 95 mg/dL (80-110); HDL Cholesterol 78 mg/dL (40-60); HEMOLYSIS < 15 (0-50); LDL Cholesterol Calculated 81 mg/dL (<100); Potassium 4.2 mmol/L (3.4-5.1); Sodium 136 mmol/L (137-145); Total Protein 6.7 g/dL (6.3-8.2); Triglycerides 49 mg/dL (35-150)
[2024-07-04 15:51] LABS: High Sensitivity CRP - Cardiac < 0.3 mg/L (1.0-3.0)
[2024-07-04 15:53] LABS: Microalbumin Urine Random 1.5 mg/dL (0-1.6)
[2024-07-04 16:18] LABS: TSH w/ Reflex to FT4 0.88 uIU/mL (0.47-4.68)
== END ==
PROVIDERS: Family Provider Internal Medicine Cardiovascular Disease; PCP Family Medicine; Referring Provider Nurse Practitioner Family; Visit Provider Nurse Practitioner Family
DX: E78.5 Hyperlipidemia, unspecified; R42 Dizziness and giddiness; I48.0 Paroxysmal atrial fibrillation; R03.0 Elevated blood-pressure reading, without diagnosis of hypertension
CPT/HCPCS: 36415; 80053; 80061; 82043; 82570; 84443; 85025; 86140

== ENCOUNTER → 2024-11-03 09:00 | Outpatient (CLI) | payer MEDICARE, OTHER, SELFPAY ==
[2024-11-03 10:46] LABS: Alanine Aminotransferase 41 IU/L (<35); Albumin Globulin Ratio 1.5 (1.0-2.8); Alkaline Phosphatase 53 U/L (38-126); Aspartate Aminotransferase 34 IU/L (14-36); Bilirubin Total 0.5 mg/dL (0.2-1.3); Blood Urea Nitrogen 16 mg/dL (7-17); Calcium 9.4 mg/dL (8.4-10.2); Carbon Dioxide 31 mmol/L (22-32); Chloride 102 mmol/L (98-107); Estimated Glomerular Filt Rate > 60 mL/min (>60); Globulin 2.6 g/dL (1.7-4.1); Glucose 95 mg/dL (80-110); HEMOLYSIS < 15 (0-50); Sodium 137 mmol/L (137-145); Total Protein 6.6 g/dL (6.3-8.2)
[2024-11-03 10:54] LABS: Prealbumin 21.1 mg/dL (17.6-36.0)
[2024-11-03 11:02] LABS: Creatinine Urine Random 40.37 mg/dL; Protein (Total) Urine Random 14 mg/dL (0-12); Protein Creatinine Ratio Urine 0.34 GRAM/24H
[2024-11-03 11:23] LABS: TSH w/ Reflex to FT4 1.28 uIU/mL (0.47-4.68)
== END ==
PROVIDERS: Family Provider Internal Medicine Cardiovascular Disease; PCP Family Medicine; Referring Provider Family Medicine; Visit Provider Family Medicine
DX: R63.4 Abnormal weight loss (principal)
CPT/HCPCS: 36415; 80053; 82570; 84134; 84156; 84443

== ENCOUNTER → 2025-02-17 08:05 | Outpatient (CLI) | payer MEDICARE, OTHER, SELFPAY ==
[2025-02-17 09:17] LABS: Alanine Aminotransferase 35 IU/L (<35); Albumin 4.1 g/dL (3.5-5.0); Albumin Globulin Ratio 1.4 (1.0-2.8); Alkaline Phosphatase 53 U/L (38-126); Aspartate Aminotransferase 36 IU/L (14-36); BUN Creatinine Ratio 25.8 (6-22); Bilirubin Total 0.9 mg/dL (0.2-1.3); Blood Urea Nitrogen 17 mg/dL (7-17); Calcium 9.2 mg/dL (8.4-10.2); Carbon Dioxide 30 mmol/L (22-32); Chloride 101 mmol/L (98-107); Estimated Glomerular Filt Rate > 60 mL/min (>60); Globulin 2.9 g/dL (1.7-4.1); Glucose 93 mg/dL (80-110); HEMOLYSIS < 15 (0-50); Sodium 136 mmol/L (137-145)
[2025-02-17 09:26] LABS: Prealbumin 19.6 mg/dL (17.6-36.0)
[2025-02-17 12:20] LABS: Creatinine Urine Random 53.09 mg/dL; Protein (Total) Urine Random 11 mg/dL (0-12)
== END ==
PROVIDERS: Family Provider Internal Medicine Cardiovascular Disease; PCP Family Medicine; Referring Provider Family Medicine; Visit Provider Family Medicine
DX: I49.1 Atrial premature depolarization (principal); I48.0 Paroxysmal atrial fibrillation; E78.5 Hyperlipidemia, unspecified; I47.10 Supraventricular tachycardia, unspecified
CPT/HCPCS: 36415; 80053; 82570; 84134; 84156

== ENCOUNTER 2025-03-25 15:29 | Emergency (ER) | payer MEDICARE, OTHER, SELFPAY ==
[2025-03-25 15:32] VITALS: BP 166/72; PULSE 86; RESP 18; TEMP 36.8; O2SAT 97; BMI 17.1
--- NOTE | 2025-03-25 15:32 | EKG_ITS ---
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
--- NOTE | 2025-03-25 15:32 | DI.RAD.S_ITS ---
PROCEDURE: XR CHEST 1V INDICATIONS: Chest Pain TECHNIQUE: One view of the chest was acquired. COMPARISON: [facility], CR, XR CHEST 1V, 10/23/2023, 15:24. FINDINGS: Surgical changes and devices: None. Lungs and pleura: Lungs are clear. No pleural effusions or pneumothorax. Mediastinum: Mediastinal contours appear normal. Heart size is normal. Bones and chest wall: No suspicious bony lesions. Overlying soft tissues appear unremarkable. IMPRESSION: No acute cardiopulmonary pathology. Dictated by: Goran Samuels M.D. on 03/25/2025 at 16:28 Approved by: Goran Samuels M.D. on 03/25/2025 at 16:30
[2025-03-25 15:43] VITALS: PULSE 80; RESP 20
[2025-03-25 15:44] VITALS: BP 182/77; PULSE 78; RESP 23
--- NOTE | 2025-03-25 15:51 | EKG_ITS ---
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
[2025-03-25 15:53] LABS: Add Manual Diff / Slide Review NO; Basophils Absolute Auto 0 /uL (0-100); Basophils Percent Auto 0.4 % (0-2); Eosinophils Absolute Auto 0 /uL (0-450); Eosinophils Percent Auto 0.5 % (2-4); Hematocrit 43.1 % (36-46); Hemoglobin 14.7 g/dL (12.0-16.0); Lymphocytes Absolute Auto 2100 /uL (1100-4500); Lymphocytes Percent Auto 24.6 % (25-40); Mean Corpuscular HGB Conc 34.2 % (30-36); Mean Corpuscular Hemoglobin 31.5 PG (26-34); Mean Corpuscular Volume 92.1 fL (80-100); Monocytes Absolute Auto 800 /uL (0-900); Monocytes Percent Auto 9.4 % (3-14); Neutrophils Absolute Auto 5600 /uL (1500-7000); Neutrophils Percent Auto 65.1 % (50-75); Platelet Count 217 X10^3/uL (150-400); Red Blood Cell Count 4.68 X10^6/uL (4.0-5.2); Red Cell Distribution Width 13.1 % (11.6-14.8); White Blood Cell Count 8.6 X10^3/uL (4.5-11.0)
[2025-03-25 15:59] LABS: INR 1.2 (0.9-1.3); Prothrombin Time 13.4 SECONDS (9.4-12.5)
--- NOTE | 2025-03-25 15:59 | ED.CHESTPAIN ---
HPI - Chest Pain General Chief Complaint: Chest Pain Stated Complaint: chest pain x 4 days Time Seen by Provider: 03/25/25 15:44 Source: patient Mode of arrival: Ambulatory Limitations: no limitations History of Present Illness HPI narrative: Patient here for off and on left-sided chest pain under the left breast without nausea or sweating or dyspnea. Patient sees Dr. Baxter for atrial fibrillation and is on Eliquis. Has had left arm pain as well. Currently no chest pain.. Patient last heart catheterization was in 2019. Patient denies any recent exertional chest pain or shortness of breath until this past week. Related Data Home Medications ?Medication ?Instructions ?Recorded ?Confirmed diltiazem HCl 120 mg 120 mg PO DAILY 07/11/18 03/27/25 capsule,extended release 24 hr (Cartia XT) melatonin 5 mg capsule 5 mg PO BEDTIME 08/25/19 03/27/25 apixaban 5 mg tablet (Eliquis) 5 mg PO BID 03/10/20 03/27/25 cholecalciferol (vitamin D3) 50 50 mcg PO DAILY 03/10/20 03/27/25 mcg (2,000 unit) tablet Osteo-meghan 2 cap PO BID 08/31/23 03/27/25 metronidazole 0.75 % topical cream 1 applic topical BID 09/10/24 03/27/25 cyclosporine 0.05 % eye drops in a drp EYE-BOTH Ocular Rosacea, Dry 01/28/25 03/27/25 dropperette Eye Syndro estradiol 25 mcg vaginal tablet 25 mcg vaginal 2XW 01/28/25 03/27/25 triamcinolone acetonide 0.1 % 1 applic topical 02/23/25 03/27/25 topical cream pantoprazole 20 mg tablet,delayed 20 mg PO DAILY 03/27/25 03/27/25 release Previous Rx's ?Medication ?Instructions ?Recorded ESTRADIOL SAMANTHA 25 mcg vaginal 2XW #24 supp 12/22/24 estradiol 0.025 mg/24 hr weekly 1 patch topical QWEEK #12 patches 12/31/24 transdermal patch Allergies Allergy/AdvReac Type Severity Reaction Status Date / Time No Known Drug Allergies Allergy Verified 02/23/25 10:14 Review of Systems Review of Systems Narrative: GENERAL: Negative chills, fatigue, malaise, fever, sweats. HEENT: Negative sinus pain, ear pain, sore throat RESPIRATORY: Negative dyspnea, cough CARDIOVASCULAR: Positive chest pain, negative palpitations GASTROINTESTINAL: Negative vomiting, nausea, abdominal pain : Negative dysuria, frequency, hematuria MUSCULOSKELETAL: Negative muscle or bony pain SKIN: Negative rash, skin lesions NEUROLOGIC: Negative weakness, numbness ROS Unobtainable: All systems reviewed & are unremarkable except as noted in HPI and below Patient History Medical History (Updated 03/25/25 @ 16:08 by Abdifatah Bay MD) Muscle strain of upper back Underweight 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 pulsatile tinnitus of left ear Internal hemorrhoids Vitamin B12 deficiency Peripheral neuropathy Chronic rhinitis Ovarian cyst (~1979) Endometriosis (~1979) Dyspareunia Colon polyps (2008) Hemorrhoids Abnormal Pap smear of cervix (~1979) Fibroids (~1979) Measles (1959) Mumps (1959) Rubella (1959) Osteopenia (2010) Cardiac arrhythmia (1992) Skin cancer (2006) Atypical chest pain Surgical History Anesthesia History of third molar tooth extraction Status post tonsillectomy and adenoidectomy (1955) S/P total abdominal hysterectomy and bilateral salpingo-oophorectomy (09/2000) Family History Father Heart disease Heart attack Mother Heart disease High cholesterol Dementia Heart failure Grandfather No problems noted. Grandmother No problems noted. Social History household members: none alcohol intake: never Smoking Status: Never smoker Exam Narrative Exam Narrative: GENERAL: in no distress, not toxic not dyspneic HEAD: Normocephalic. EYES: Pupils equal round ENT: Mucous membranes moist. NECK: Trachea midline. CARDIOVASCULAR: Regular rate and rhythm RESPIRATORY: Clear to auscultation. Breath sounds equal bilaterally. No wheezes, rales, or rhonchi. Chest is nontender GASTROINTESTINAL: Abdomen soft, non-tender EXTREMITIES: No gross deformities. BACK: No flank tenderness. NEURO: AOx4. Clear speech SKIN: Warm and dry PSYCH: Not anxious, is cooperative Initial Vital Signs Initial Vital Signs: Vital Signs Temperature 98.3 F 03/25/25 15:32 Pulse Rate 86 03/25/25 15:32 Respiratory Rate 18 03/25/25 15:32 Blood Pressure 166/72 H 03/25/25 15:32 Pulse Oximetry 97 03/25/25 15:32 Oxygen Delivery Method Room Air 03/25/25 15:32 Course Orders Ordered: Discontinued Medications Aspirin (Aspirin 81 Mg Chew Tab) 324 mg PO NOW ONE Stop: 03/25/25 15:33 Last Admin: 03/25/25 16:09 Dose: 324 mg Documented By: STACEY Heparin Sodium (Porcine) (Heparin 5,000 Unit/Ml Vial) 3,000 unit 60 unit/kg (3000 unit) IV NOW ONE Stop: 03/25/25 16:01 Last Admin: 03/25/25 16:05 Dose: 3,000 unit Documented By: STACEY Heparin Sodium/Dextrose (Heparin Drip) 25,000 unit in 500 mls @ 12.628 mls/hr IV CONT ILA; Protocol Last Admin: 03/25/25 16:06 Dose: 12 units/kg/hr, 12.628 mls/hr Documented By: STACEY Co-signed By: MAHSA Vital Signs Vital signs: Vital Signs - 8 hr 03/25/25 15:32 Temperature 98.3 F Pulse Rate 86 Respiratory Rate 18 Blood Pressure 166/72 H Pulse Oximetry 97 Oxygen Delivery Method Room Air MDM - Chest Pain Lab Data 03/25/25 15:46 03/25/25 15:46 Labs: Lab Results 03/25/25 Range/Units 15:46 WBC 8.6 (4.5-11.0) X10^3/uL RBC 4.68 (4.0-5.2) X10^6/uL Hgb 14.7 (12.0-16.0) g/dL Hct 43.1 (36-46) % MCV 92.1 (80-100) fL MCH 31.5 (26-34) PG MCHC 34.2 (30-36) % RDW 13.1 (11.6-14.8) % Plt Count 217 (150-400) X10^3/uL Neut % (Auto) 65.1 (50-75) % Lymph % (Auto) 24.6 L (25-40) % Lyon % (Auto) 9.4 (3-14) % Eos % (Auto) 0.5 L (2-4) % Baso % (Auto) 0.4 (0-2) % Neut # (Auto) 5600 (3229-6367) /uL Lymph # (Auto) 2100 (4695-8560) /uL Lyon # (Auto) 800 (0-900) /uL Eos # (Auto) 0 (0-450) /uL Baso # (Auto) 0 (0-100) /uL PT 13.4 H (9.4-12.5) SECONDS INR 1.2 (0.9-1.3) APTT 37 H (25.1-36.5) SECONDS Sodium 137 (137-145) mmol/L Potassium 4.0 (3.4-5.1) mmol/L Chloride 101 (98-107) mmol/L Carbon Dioxide 29 (22-32) mmol/L BUN 21 H (7-17) mg/dL Creatinine 0.79 (0.52-1.04) mg/dL Estimated GFR > 60 (>60) mL/min BUN/Creatinine Ratio 26.6 H (6-22) Glucose 118 H (70-99) mg/dL Calcium 9.7 (8.4-10.2) mg/dL Magnesium 2.0 (1.6-2.3) mg/dL Total Bilirubin 0.7 (0.2-1.3) mg/dL AST 35 (14-36) IU/L ALT 38 H (<35) IU/L Alkaline Phosphatase 60 (38-126) U/L Total Creatine Kinase 80 (30-135) U/L Troponin I < 0.012 (0.01-0.034) ng/mL NT-Pro-B Natriuret Pep 92 (<125) pg/mL Total Protein 8.0 (6.3-8.2) g/dL Albumin 4.6 (3.5-5.0) g/dL Globulin 3.4 (1.7-4.1) g/dL Albumin/Globulin Ratio 1.4 (1.0-2.8) Lipase 122 (23-300) U/L [facility] Narrative Medical decision making narrative: Patient here for off and on left-sided chest pain under the left breast without nausea or sweating or dyspnea. Patient sees Dr. Baxter for atrial fibrillation and is on Eliquis. Has had left arm pain as well. Currently no chest pain.. Patient last heart catheterization was in 2019. Patient denies any recent exertional chest pain or shortness of breath until this past week. After history and exam, CBC CMP EKG chest x-ray troponin MDM Medical records reviewed: No recent visit for this complaint Differential considered: Includes but not limited to STEMI non-STEMI angina pneumonia costochondritis pleurisy Lab Test results independently reviewed as above. Pertinent findings: WBC 8.6 hemoglobin 14.7 INR 1.2 sodium 137 potassium 4.0 GFR greater than 60 Independently reviewed EKG reviewed with Dr. Quintana, interventional cardiology [facility]. Possible STEMI anterior leads, with like patient transferred to their facility now Imaging studies independently reviewed: Chest x-ray Consultations: 3:[address] Quintana jack prizer at [facility], he would like patient transferred now for heart catheterization. 4:[address] [facility] emergency department Dr. Prater, he will accept patient Re-evaluations: 4:00 p.m.. Updated patient results of my discussion with Dr. Quintana based on the EKG, she understands this may be active heart attack/MT. Discussion: Appropriate for transfer for higher level of care heart catheterization. Cardiology has reviewed patient's EKG. Heparin has been started. Aspirin has been started. Diagnosis: Chest pain Critical Care Time Critical Care Time Attestation: Critical Care Time 35 minutes: Critical care time is separate from other billable procedures. This critical care time includes consultation with family and other consulting doctors, review of records, and interpretation of data from labs, EKGs, imaging, etc. Discharge Plan Departure Patient Disposition: [facility] Clinical Impression: Chest pain Qualifiers: Chest pain type: unspecified Qualified Code(s): R07.9 - Chest pain, unspecified Prescriptions: No Action ESTRADIOL SAMANTHA 25 mcg VAG 2XW Qty: 24 3RF Rx Instructions: Insert 1 samantha vaginally at bedtime twice per week. estradiol 0.025 mg/24 hr patch weekly 1 patch topical QWEEK Qty: 12 3RF cholecalciferol (vitamin D3) 50 mcg (2,000 unit) tablet 50 mcg PO DAILY Eliquis 5 mg tablet 5 mg PO BID cyclosporine 0.05 % dropperette EYE-BOTH Patient Comments: Word limit cut off Syndrome above estradiol 25 mcg tablet 25 mcg vaginal 2XW pantoprazole 20 mg tablet,delayed release (DR/EC) 20 mg PO DAILY diltiazem HCl [Cartia XT] 120 mg capsule,extended release 24hr 120 mg PO DAILY melatonin 5 mg capsule 5 mg PO BEDTIME Osteo-meghan 2 cap PO BID Patient Comments: pours contents in applesauce, unable to swallow pill metronidazole 0.75 % cream 1 applic topical BID triamcinolone acetonide 0.1 % cream 1 applic topical Referrals: Saloni Tse DO [Primary Care Provider, Medical]
--- NOTE | 2025-03-25 15:59 | PC.NURSE ---
This RN called and gave verbal report to PARMINDER Martins at [facility] emergency department for this patient up to the care that has happened at 1600.
[2025-03-25 16:00] VITALS: BP 187/86; PULSE 94; RESP 20
[2025-03-25 16:01] LABS: PTT Partial Thromboplastin Tim 37 SECONDS (25.1-36.5)
[2025-03-25 16:03] LABS: Alanine Aminotransferase 38 IU/L (<35); Albumin 4.6 g/dL (3.5-5.0); Albumin Globulin Ratio 1.4 (1.0-2.8); Alkaline Phosphatase 60 U/L (38-126); Aspartate Aminotransferase 35 IU/L (14-36); BUN Creatinine Ratio 26.6 (6-22); Bilirubin Total 0.7 mg/dL (0.2-1.3); Blood Urea Nitrogen 21 mg/dL (7-17); Calcium 9.7 mg/dL (8.4-10.2); Carbon Dioxide 29 mmol/L (22-32); Chloride 101 mmol/L (98-107); Creatine Kinase 80 U/L (30-135); Estimated Glomerular Filt Rate > 60 mL/min (>60); Globulin 3.4 g/dL (1.7-4.1); Glucose 118 mg/dL (70-99); HEMOLYSIS < 15 (0-50); Lipase 122 U/L (23-300); Sodium 137 mmol/L (137-145)
[2025-03-25] MEDS: HEPARIN 5,000 UNIT/ML VIAL 3000 UNIT IV (16:05)
[2025-03-25] MEDS: HEPARIN DRIP 25,000 UNIT/500 ML IV.SOLN 12.628 UNIT IV (16:06)
[2025-03-25] MEDS: ASPIRIN 81 MG CHEW TAB 324 MG PO (16:09)
[2025-03-25 16:14] LABS: NT-proBNP (BNP-Adult 18+) 92 pg/mL (<125); Troponin I < 0.012 ng/mL (0.01-0.034)
== END 2025-03-25 16:15 | disposition short-term general hospital (02) ==
PROVIDERS: Emergency Provider Emergency Medicine; Family Provider Internal Medicine Cardiovascular Disease; PCP Family Medicine
DX: R07.9 Chest pain, unspecified (principal); I48.91 Unspecified atrial fibrillation; Z79.01 Long term (current) use of anticoagulants
CPT/HCPCS: 36415; 71045; 80053; 82550; 83690; 83735; 83880; 84484; 85025; 85610; 85730; 93005; 96374; 99284; 99291; J1644

== ENCOUNTER → 2025-05-18 08:15 | Outpatient (CLI) | payer MEDICARE, OTHER, SELFPAY ==
[2025-05-18 09:20] LABS: Alanine Aminotransferase 31 IU/L (<35); Albumin 4.3 g/dL (3.5-5.0); Albumin Globulin Ratio 1.4 (1.0-2.8); Alkaline Phosphatase 51 U/L (38-126); Blood Urea Nitrogen 18 mg/dL (7-17); Calcium 9.5 mg/dL (8.4-10.2); Carbon Dioxide 29 mmol/L (22-32); Chloride 102 mmol/L (98-107); Estimated Glomerular Filt Rate > 60 mL/min (>60); Globulin 3.0 g/dL (1.7-4.1); Glucose 95 mg/dL (70-99); HEMOLYSIS < 15 (0-50); Potassium 4.5 mmol/L (3.4-5.1); Sodium 139 mmol/L (137-145); Total Protein 7.3 g/dL (6.3-8.2)
[2025-05-18 09:27] LABS: Prealbumin 18.7 mg/dL (17.6-36.0)
--- NOTE | 2025-05-18 11:21 | DI.MG.S_ITS ---
MM screening mammo BI: 05/18/2025. BI-RADS: 1 CLINICAL: 74-year old female for bilateral screening mammogram. Tyrer-Cuzick lifetime risk of 3.7%. No personal or first-degree family history of breast cancer. PRIOR EXAMS 09/18/2023, 09/08/2022, 07/31/2020, MAMMOGRAPHY TECHNIQUE: 2D and 3D (tomosynthesis) digital mammographic views obtained, with additional images as needed for full coverage. Current study was also evaluated with a Computer Aided Detection (CAD) system. DENSITY C. The breasts are heterogeneously dense, which may obscure small masses. MAMMOGRAPHY FINDINGS Bilateral: No suspicious mass, asymmetry, microcalcification, or other abnormality seen. IMPRESSION: * No evidence of malignancy. RECOMMENDATIONS Bilateral * Annual screening mammography. OVERALL ASSESSMENT CATEGORY BI-RADS-1: Negative. The [employer] recommends annual screening mammography beginning at age 40 for women with average risk of breast cancer. ELECTRONICALLY SIGNED: Lamar Krause M.D. on 05/18/2025 at 09:08:24 PM PT Interpreting Station ID: [id number]
== END ==
LOC: MAMMO 08:16
PROVIDERS: Family Provider Internal Medicine Cardiovascular Disease; PCP Family Medicine; Referring Provider Family Medicine; Visit Provider Family Medicine
DX: Z12.31 Encounter for screening mammogram for malignant neoplasm of breast (principal); R92.333 Mammographic heterogeneous density, bilateral breasts; M81.0 Age-related osteoporosis without current pathological fracture; I47.10 Supraventricular tachycardia, unspecified; I48.0 Paroxysmal atrial fibrillation; I49.1 Atrial premature depolarization; R80.9 Proteinuria, unspecified; R74.01 Elevation of levels of liver transaminase levels; E53.8 Deficiency of other specified B group vitamins; E78.5 Hyperlipidemia, unspecified
CPT/HCPCS: 36415; 77063; 77067; 80053; 84134

== ENCOUNTER → 2025-08-31 07:46 | Outpatient (CLI) | payer MEDICARE, OTHER, SELFPAY ==
--- NOTE | 2025-08-31 07:51 | DI.RAD.S_ITS ---
PROCEDURE: XR DEXA AXIAL SKELETON INDICATIONS: bone density screening COMPARISON: [facility], AMIE, XR DEXA AXIAL SKELETON, 09/18/2023, 11:51. FINDINGS: Lumbar Spine: Bone mineral density 0.869 g/cm2, T score -1.6, compared to-1.2, demonstrating approximate 5% bone mineral density loss.. Left Femoral Neck: Bone mineral density 0.607 g/cm2, T score -2.2, compared to -2.1. Left Hip: Bone mineral density 0.646 g/cm2, T score -2.4, compared to -2.1 corresponding to an approximate 7% bone mineral density loss.. Fracture Risk Calculation (when applicable): 10-year fracture risk of a major osteoporotic fracture 11 percent and of a hip fracture 16 percent. (T score greater or equal to -1.0 to: NORMAL) (T score from -1.1 to -2.4: OSTEOPENIA) (T score less than or equal to -2.5: OSTEOPOROSIS) IMPRESSION: Progressive bone mineral density loss most severe in the left hip demonstrating severe osteopenia. Follow-up guidelines as follows: Osteoporosis: Consider a repeat DEXA and Vertebral Fracture Assessment (VFA) exam in 2 years or sooner if medically necessary, to reassess this patient's status. Osteopenia: Consider a repeat DEXA in 2-3 years to reassess this patient's status, or if there is a new clinical indication. Normal: Consider a repeat DEXA in 5 years or sooner, or if there is a new clinical indication. All treatment decisions require clinical judgment and consideration of individual patient factors, including patient preferences, comorbidities, previous drug use, risk factors not captured in the FRAX model (e.g., frailty, falls, vitamin D deficiency, increased bone turnover, interval significant decline in bone density ) and possible under- or over-estimation of fracture risk by FRAX. In addition, the NOF Guide recommends that FDA-approved medical therapies be considered in postmenopausal women and men age >= 50 years with a: * Hip or vertebral (clinical or morphometric) fracture * T-score of <=-2.5 at the spine or hip * Ten-year fracture probability by FRAX of >= 3% for hip fracture or >=20% for major osteoporotic fracture. Dictated by: Sidra Padilla M.D. on 08/31/2025 at 15:46 Approved by: Sidra Padilla M.D. on 08/31/2025 at 15:47
[2025-08-31 09:03] LABS: Alanine Aminotransferase 32 IU/L (<35); Albumin 4.2 g/dL (3.5-5.0); Albumin Globulin Ratio 1.3 (1.0-2.8); Alkaline Phosphatase 65 U/L (38-126); Blood Urea Nitrogen 13 mg/dL (7-17); Calcium 9.1 mg/dL (8.4-10.2); Carbon Dioxide 29 mmol/L (22-32); Chloride 99 mmol/L (98-107); Cholesterol 180 mg/dL (140-199); Estimated Glomerular Filt Rate > 60 mL/min (>60); Globulin 3.2 g/dL (1.7-4.1); Glucose 95 mg/dL (70-99); HDL Cholesterol 84 mg/dL (40-60); HEMOLYSIS < 15 (0-50); Potassium 4.0 mmol/L (3.4-5.1); Sodium 135 mmol/L (137-145); Total Protein 7.4 g/dL (6.3-8.2); Triglycerides 59 mg/dL (35-150)
[2025-08-31 09:10] LABS: Prealbumin 17.1 mg/dL (17.6-36.0)
[2025-08-31 09:20] LABS: Protein (Total) Urine Random 13 mg/dL (0-12); Protein Creatinine Ratio Urine 0.21 GRAM/24H
[2025-08-31 09:29] LABS: TSH w/ Reflex to FT4 1.69 uIU/mL (0.47-4.68)
[2025-08-31 10:04] LABS: Folate > 20.0 ng/mL (2.76-20.0); Vitamin B12 842 pg/mL (239-931)
[2025-09-01 04:53] LABS: CRP, High Sensitivity 0.44 mg/L (0.00-3.00)
[2025-09-03 19:36] LABS: C-Telopeptide, Serum 383 pg/mL (.)
== END ==
PROVIDERS: Family Provider Family Medicine; PCP Family Medicine; Referring Provider Family Medicine; Visit Provider Psychiatry & Neurology Neurology
DX: M81.0 Age-related osteoporosis without current pathological fracture (principal); R74.01 Elevation of levels of liver transaminase levels; G60.9 Hereditary and idiopathic neuropathy, unspecified; E55.9 Vitamin D deficiency, unspecified; R20.2 Paresthesia of skin; R80.9 Proteinuria, unspecified; I49.1 Atrial premature depolarization; E53.8 Deficiency of other specified B group vitamins; I48.0 Paroxysmal atrial fibrillation; E78.5 Hyperlipidemia, unspecified; I47.10 Supraventricular tachycardia, unspecified
CPT/HCPCS: 36415; 77080; 80053; 80061; 82523; 82570; 82607; 82746; 84134; 84156; 84443; 86140

== ENCOUNTER 2025-10-01 11:33 | Emergency (ER) | payer MEDICARE, OTHER, SELFPAY ==
[2025-10-01] VITALS (11 sets, daily range): BP systolic 128–174; BP diastolic 60–84; PULSE 79–106; RESP 18–30; TEMP 36.8; O2SAT 92–99; BMI 16.0
--- NOTE | 2025-10-01 11:59 | EKG_ITS ---
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
--- NOTE | 2025-10-01 11:59 | DI.RAD.S_ITS ---
PROCEDURE: XR CHEST 1V INDICATIONS: CP TECHNIQUE: One view of the chest was acquired. COMPARISON: [facility], CR, XR CHEST 1 VIEW, 03/25/2025, 19:10. [facility], CR, XR CHEST 1V, 03/25/2025, 16:01. [facility], CR, XR CHEST 1V, 10/23/2023, 15:24. FINDINGS: Surgical changes and devices: None. Lungs and pleura: Lungs are hyperexpanded and clear. No pleural effusions or pneumothorax. Mediastinum: Mediastinal contours appear normal. Heart size is normal. Bones and chest wall: No suspicious bony lesions. Overlying soft tissues appear unremarkable. IMPRESSION: No acute cardiopulmonary abnormality is seen. Approved by: Moncho Angeles M.D. on 10/01/2025 at 12:42
[2025-10-01] MEDS: ASPIRIN 81 MG CHEW TAB 324 MG PO (12:14)
[2025-10-01 12:31] LABS: Add Manual Diff / Slide Review NO; Hematocrit 44.3 % (36-46); Hemoglobin 15.2 g/dL (12.0-16.0); Lymphocytes Absolute Auto 1700 /uL (1100-4500); Mean Corpuscular HGB Conc 34.4 % (30-36); Mean Corpuscular Hemoglobin 30.8 PG (26-34); Mean Corpuscular Volume 89.6 fL (80-100); Platelet Count 253 X10^3/uL (150-400)
[2025-10-01 12:44] LABS: Alanine Aminotransferase 29 IU/L (<35); Albumin 4.5 g/dL (3.5-5.0); Albumin Globulin Ratio 1.1 (1.0-2.8); Alkaline Phosphatase 78 U/L (38-126); Blood Urea Nitrogen 17 mg/dL (7-17); Calcium 9.3 mg/dL (8.4-10.2); Carbon Dioxide 26 mmol/L (22-32); Chloride 101 mmol/L (98-107); Estimated Glomerular Filt Rate > 60 mL/min (>60); Globulin 4.0 g/dL (1.7-4.1); Glucose 100 mg/dL (70-99); HEMOLYSIS < 15 (0-50); Lipase 185 U/L (23-300); Magnesium 2.1 mg/dL (1.6-2.3); Potassium 3.5 mmol/L (3.4-5.1); Sodium 136 mmol/L (137-145); Total Protein 8.5 g/dL (6.3-8.2)
[2025-10-01 13:09] LABS: NT-proBNP (BNP-Adult 18+) 172 pg/mL (<125); Troponin I < 0.012 ng/mL (0.01-0.034)
--- NOTE | 2025-10-01 15:48 | ED.CHESTPAIN ---
HPI - Chest Pain General Chief Complaint: Chest Pain Stated Complaint: Chest pain , gagging cough 7 days Time Seen by Provider: 10/01/25 11:59 Source: patient Mode of arrival: Ambulatory Limitations: no limitations History of Present Illness HPI narrative: 75-year-old female with history of esophageal dysmotility currently being treated by GI Dr. Martinez, presenting with acute on chronic worsening of brief chest pain at her left side of her chest underneath her left breast. Patient had a recent cardiac angiogram showing no concerns a few months ago for patient. Patient states that the pain tends to be when she leans over more. The patient states she has been losing weight and her ability to consume food has been reducing. States decreased stool output but no straining noted. denies fevers, chills, nausea, vomiting, diarrhea, abdominal pain, shortness of breath, dizziness, headache, or urinary symptoms. Related Data Home Medications ?Medication ?Instructions ?Recorded ?Confirmed diltiazem HCl 120 mg 120 mg PO DAILY 07/11/18 09/07/25 capsule,extended release 24 hr (Cartia XT) melatonin 5 mg capsule 5 mg PO BEDTIME 08/25/19 09/07/25 apixaban 5 mg tablet (Eliquis) 5 mg PO BID 03/10/20 09/07/25 cholecalciferol (vitamin D3) 50 50 mcg PO DAILY 03/10/20 09/07/25 mcg (2,000 unit) tablet Osteo-meghan 2 cap PO BID 08/31/23 09/07/25 metronidazole 0.75 % topical cream 1 applic topical BID 09/10/24 09/07/25 cyclosporine 0.05 % eye drops in a drp EYE-BOTH Ocular Rosacea, Dry 01/28/25 09/07/25 dropperette Eye Syndro pantoprazole 20 mg tablet,delayed 20 mg PO DAILY 03/27/25 09/07/25 release Previous Rx's ?Medication ?Instructions ?Recorded ESTRADIOL JULIO 25 mcg vaginal 2XW #24 supp 12/22/24 estradiol 0.025 mg/24 hr weekly 1 patch topical QWEEK #12 patches 12/31/24 transdermal patch Allergies Allergy/AdvReac Type Severity Reaction Status Date / Time No Known Drug Allergies Allergy Verified 10/01/25 11:51 Review of Systems Review of Systems ROS Unobtainable: All systems reviewed & are unremarkable except as noted in HPI and below Patient History Medical History (Updated 10/01/25 @ 16:22 by Marcos Ceballos MD) Paroxysmal SVT (supraventricular tachycardia) Chronic rhinitis History of colon polyps TFCC (triangular fibrocartilage complex) injury Transaminitis Underweight 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 pulsatile tinnitus of left ear Internal hemorrhoids Vitamin B12 deficiency Ovarian cyst (~1979) Endometriosis (~1979) Dyspareunia Colon polyps (2008) Hemorrhoids Abnormal Pap smear of cervix (~1979) Fibroids (~1979) Measles (1959) Mumps (1959) Rubella (1959) Osteopenia (2010) Cardiac arrhythmia (1992) Skin cancer (2006) Atypical chest pain Surgical History Anesthesia History of third molar tooth extraction Status post tonsillectomy and adenoidectomy (1955) S/P total abdominal hysterectomy and bilateral salpingo-oophorectomy (09/2000) Family History Father Heart disease Heart attack Mother Heart disease High cholesterol Dementia Heart failure Grandfather No problems noted. Grandmother No problems noted. Social History household members: none alcohol intake: never Exam Narrative Exam Narrative: Patient thin, borderline cachectic, however very alert coherent speaking in full sentences no focal neuro deficits. Palpable pulsatile mass in the abdomen that patient states is normal for her and has been assessed with imaging in the past. Initial Vital Signs Initial Vital Signs: Vital Signs Temperature 98.2 F 10/01/25 11:51 Pulse Rate 98 H 10/01/25 11:51 Respiratory Rate 18 10/01/25 11:51 Blood Pressure 174/82 H 10/01/25 11:51 Pulse Oximetry 98 10/01/25 11:51 Oxygen Delivery Method Room Air 10/01/25 11:51 Const General: cooperative, comfortable and well hydrated Nutritional Appearance: average body habitus [facility] Head: normal to inspection Ears: external ears normal Nose: external nose normal and nares normal Face and sinus: sinuses nontender, face symmetric, ecchymosis not on the right, not on the left and not bilaterally, erythema not on the right, not on the left and not bilaterally and edema not on the right, not on the left and not bilaterally Mouth: lip normal Eyes General: Yes appearance normal, both eyes and all related structures Eyelids: eyelids normal Sclera: sclerae normal Pupils: PERRL Neck Neck: normal visual inspection Resp Effort & Inspection: normal respiratory effort and able to speak in complete sentences Cardio Rate: regular rate Rhythm: regular rhythm Pulses: radial pulses present GI Inspection: normal to inspection and non-distended General: bimanual renal exam normal bilaterally Back/Spine/Pelvis Back: normal to inspection Skin General: no rashes or lesions noted Neuro General: patient alert, patient awake, patient oriented x3, gait normal, moves all extremities, normal light touch, pain and propioception, no focal motor deficits and CN's II-XI intact bilaterally Cognition: normal cognition Speech: speech normal Gait: normal gait Motor: muscle tone normal throughout Sensory Exam: no sensory deficits noted Extrem General: normal to inspection Psych Appearance: grossly normal Mental Status: mental status grossly normal Speech and Movement: speech and movement normal Mood: congruent mood Attitude: cooperative Thought Process: normal Thought Content: normal Judgment: judgment good Course Orders Ordered: ED Orders 10/01/25 11:59 XR chest 1V Stat EKG-12 Lead Stat 10/01/25 12:20 Complete Blood Count AUTO DIFF Stat Comprehensive Metabolic Panel Stat Lipase Stat Magnesium Stat NT-proBNP (BNP-Adult 18+) Stat Troponin I Stat Discontinued Medications Aspirin (Aspirin 81 Mg Chew Tab) 324 mg PO NOW ONE Stop: 10/01/25 12:10 Last Admin: 10/01/25 12:14 Dose: 324 mg Documented By: DEANDRE Lorazepam (Lorazepam 2 Mg/Ml Inj) 0.5 mg IV NOW ONE Stop: 10/01/25 12:06 Last Admin: 10/01/25 12:58 Dose: Not Given Documented By: DEANDRE Vital Signs Vital signs: Vital Signs - 8 hr 10/01/25 11:51 Temperature 98.2 F Pulse Rate 98 H Respiratory Rate 18 Blood Pressure 174/82 H Pulse Oximetry 98 Oxygen Delivery Method Room Air MDM - Chest Pain Lab Data 10/01/25 12:20 10/01/25 12:20 Labs: Lab Results 10/01/25 Range/Units 12:20 WBC 6.7 (4.5-11.0) X10^3/uL RBC 4.95 (4.0-5.2) X10^6/uL Hgb 15.2 (12.0-16.0) g/dL Hct 44.3 (36-46) % MCV 89.6 (80-100) fL MCH 30.8 (26-34) PG MCHC 34.4 (30-36) % RDW 12.7 (11.6-14.8) % Plt Count 253 (150-400) X10^3/uL Neut % (Auto) 57.1 (50-75) % Lymph % (Auto) 25.7 (25-40) % [place] % (Auto) 13.9 (3-14) % Eos % (Auto) 2.5 (2-4) % Baso % (Auto) 0.8 (0-2) % Neut # (Auto) 3800 (1513-0504) /uL Lymph # (Auto) 1700 (6545-5365) /uL [place] # (Auto) 900 (0-900) /uL Eos # (Auto) 200 (0-450) /uL Baso # (Auto) 100 (0-100) /uL Sodium 136 L (137-145) mmol/L Potassium 3.5 (3.4-5.1) mmol/L Chloride 101 (98-107) mmol/L Carbon Dioxide 26 (22-32) mmol/L BUN 17 (7-17) mg/dL Creatinine 0.62 (0.52-1.04) mg/dL Estimated GFR > 60 (>60) mL/min BUN/Creatinine Ratio 27.4 H (6-22) Glucose 100 H (70-99) mg/dL Calcium 9.3 (8.4-10.2) mg/dL Magnesium 2.1 (1.6-2.3) mg/dL Total Bilirubin 0.5 (0.2-1.3) mg/dL AST 32 (14-36) IU/L ALT 29 (<35) IU/L Alkaline Phosphatase 78 (38-126) U/L Troponin I < 0.012 (0.01-0.034) ng/mL NT-Pro-B Natriuret Pep 172 H (<125) pg/mL Total Protein 8.5 H (6.3-8.2) g/dL Albumin 4.5 (3.5-5.0) g/dL Globulin 4.0 (1.7-4.1) g/dL Albumin/Globulin Ratio 1.1 (1.0-2.8) Lipase 185 (23-300) U/L ECG Data Interpretation: Patient with minimal ST elevation in V1 and V2. Otherwise normal EKG with no ischemia compared to prior. EKG discussed with Dr. Fuentes who is not concerned for acute ischemia. MDM Narrative Medical decision making narrative: Pt presents w/ Chest Pain. Chest x-ray for consideration of pneumonia, pneumothorax, or congestive heart failure. EKG, troponin in consideration of arrhythmia, Acute Coronary Syndrome, Acute Myocardial Infarction. Check labs due to consideration of anemia, electrolyte abnormalities, including hypokalemia, hyperkalemia, hyponatremia, hypernatremia, hyperglycemia, hypoglycemia. No CT chest indicated as I considered but do not clinically suspect aortic dissection/pulmonary embolism. Re-eval. Patient with negative cardiac workup, case discussed with international banker who does not suspect this is cardiac in origin. I agree. Symptoms likely due to work acute on chronic esophageal dysmotility. GI doctor consulted and he recommends doubling PPI. Discharge Plan Departure Patient Disposition: Home Clinical Impression: Acute chest pain Instructions: DI for Chest Pain Activity Restrictions/Additional Instructions: Please return to ED if you have worsening chest pain, shortness of breath, dizziness, nausea, passing out, or any other concern. Si el dolor de pecho sigue, pierde conocimiento, tiene problemas con respiraci?n o cualquier otra tari, por favor vuelve a urgencias. Return for fever > 38?C, vomiting, inability to tolerate fluids, abnormal bowel movements, or unable to pass gas. Regrese por fiebre >38 ? C, v?mitos, incapacidad para tolerar l?quidos, deposiciones anormales o incapacidad para evacuar gases. Please double your PPI that you are taking at home until you see Dr. Martinez. Take 40 mg all at once. Prescriptions: No Action ESTRADIOL JULIO 25 mcg VAG 2XW Qty: 24 3RF Rx Instructions: Insert 1 julio vaginally at bedtime twice per week. estradiol 0.025 mg/24 hr patch weekly 1 patch topical QWEEK Qty: 12 3RF cholecalciferol (vitamin D3) 50 mcg (2,000 unit) tablet 50 mcg PO DAILY Eliquis 5 mg tablet 5 mg PO BID cyclosporine 0.05 % dropperette EYE-BOTH Patient Comments: Word limit cut off Syndrome above pantoprazole 20 mg tablet,delayed release (DR/EC) 20 mg PO DAILY diltiazem HCl [Cartia XT] 120 mg capsule,extended release 24hr 120 mg PO DAILY melatonin 5 mg capsule 5 mg PO BEDTIME Osteo-meghan 2 cap PO BID Patient Comments: pours contents in applesauce, unable to swallow pill metronidazole 0.75 % cream 1 applic topical BID Referrals: Saloni Tse DO [Primary Care Provider, Medical] Stand Alone Forms: Patient Portal/API
== END 2025-10-01 17:09 | disposition home or self-care (01) ==
PROVIDERS: Emergency Provider Emergency Medicine; PCP Family Medicine
DX: R07.89 Other chest pain (principal)
CPT/HCPCS: 71045; 80053; 83690; 83735; 83880; 84484; 85025; 93005; 99283; 99284; J2060